=== PATIENT | male | born 1940 | race Caucasian/White ===

== ENCOUNTER → 2016-06-14 | Outpatient (CLI) | payer OTHER, MEDICARE ==
[~2016-06-14] MED LIST: ALL100 PO; ASPEC81 PO; CALCTAB7 PO; CHOL100010 PO; CRG25 PO; CYAN10005 PO; DIGO0.1219 PO; ENAL10TA88 PO; EPGI40M SC; FERR1TAB13 PO; FRS/40 PO; INSDGI SC; LCTX PO; NVLGI SQ; SIMV20TA2 PO
--- NOTE | 2016-06-14 13:17 | DIAGNOSTIC IMAGING REPORT ---
CHEST 2 VIEWS ROUTINE CLINICAL HISTORY: Shortness of breath COMPARISON STUDY: 02/08/2016 FINDINGS: The cardiac silhouette remains enlarged with a globular configuration. There is a left subclavian dual-chamber central venous pacemaker/defibrillator. There is mild pulmonary vascular congestion. There are small bilateral pleural effusions. There is no lobar consolidation.[ IMPRESSION: Cardiomegaly, mild pulmonary vascular congestion, and small bilateral pleural effusions. Electronically signed by: Umair Daly M.D. 06/14/2016 1:15 PM Dictated Date/Time: 06/14/2016 1:15 PM
== END | disposition home or self-care (01) ==
LOC: C.RADPV 12:48
PROVIDERS: ATTEND Family Medicine
DX: R06.02 Shortness of breath (principal); I51.7 Cardiomegaly; R09.89 Other specified symptoms and signs involving the circulatory and respiratory systems; J90 Pleural effusion, not elsewhere classified

== ENCOUNTER → 2016-06-28 | Outpatient (CLI) | payer OTHER ==
[2016-06-28 17:47] LABS: URINE APPEARANCE CLEAR (CLEAR); URINE BILIRUBIN NEG (NEG); URINE COLOR YELLOW; URINE EPITHELIAL CELL AUTO 0-5 /lpf (0-5); URINE NITRITE NEG (NEG); URINE PH 7.5 (4.5-7.5); URINE SPECIFIC GRAVITY 1.003 (1.000-1.030); UROBILINOGEN NEG (NEG)
[2016-06-28 17:54] LABS: MANUAL MICROSCOPIC REQUIRED? NO; REVIEW REQ? NO
[2016-06-28 17:56] LABS: CHOLESTEROL/HDL RATIO 2.2
[2016-06-28 18:00] LABS: CREATININE, URINE < 13.0 mg/dl; URINE TOTAL PROTEIN 7.6 mg/dl (0-11.9)
[2016-06-28 18:09] LABS: BASO % 0.6 %; BASO ABS # 0.03 K/uL (0-0.2); COMPLETE YES; EOS % 10.2 %; IG% 0.2 %; LYMPH % 8.1 %; LYMPH ABS # 0.41 K/uL (1.2-3.4); MEAN CELL VOLUME 88.9 fL (80-100); MEAN CORPUSCULAR HEMOGLOBIN 27.2 pg (25-34); MEAN CORPUSCULAR HGB CONC 30.6 g/dl (32-36); MEAN PLATELET VOLUME 10.2 fL (7.4-10.4); MONO % 7.5 %; NEUT % 73.4 %; PLATELET COUNT 183 K/uL (130-400); RED BLOOD COUNT 4.05 M/uL (4.7-6.1); WHITE BLOOD COUNT 5.09 K/uL (4.8-10.8)
[2016-06-28 18:28] LABS: BLOOD UREA NITROGEN 36 mg/dl (7-18); BUN/CREATININE RATIO 27.9 (10-20); CALCIUM 9.5 mg/dl (8.5-10.1); CARBON DIOXIDE 31 mmol/L (21-32); CHLORIDE 105 mmol/L (98-107); GLUCOSE 82 mg/dl (70-99); PHOSPHORUS 3.1 mg/dl (2.5-4.9); POTASSIUM 4.4 mmol/L (3.5-5.1); SODIUM 143 mmol/L (136-145)
[2016-06-29 05:41] LABS: ESTIMATED AVERAGE GLUCOSE 166 mg/dl; HA1C FLAG Normal (Normal)
== END | disposition home or self-care (01) ==
LOC: C.LABPVFM 11:53
PROVIDERS: ATTEND Nurse Practitioner Adult Health
DX: I12.9 Hypertensive chronic kidney disease with stage 1 through stage 4 chronic kidney disease, or unspecified chronic kidney disease (principal); E55.9 Vitamin D deficiency, unspecified; N25.81 Secondary hyperparathyroidism of renal origin; N18.3 Chronic kidney disease, stage 3 (moderate); R60.9 Edema, unspecified; D64.9 Anemia, unspecified; Z51.81 Encounter for therapeutic drug level monitoring; Z79.899 Other long term (current) drug therapy; E11.65 Type 2 diabetes mellitus with hyperglycemia; E11.22 Type 2 diabetes mellitus with diabetic chronic kidney disease; E78.5 Hyperlipidemia, unspecified

== ENCOUNTER 2016-09-25 06:32 | Day surgery (SDC) | payer OTHER ==
[~2016-09-25] VITALS: Ht 182.9 cm; Wt 100.0 kg
[2016-09-25 07:11] VITALS: BP 111/59; PULSE 73; TEMP 36.6; O2SAT 97; Ht 182.9 cm; Wt 100.0 kg
--- NOTE | 2016-09-25 07:25 | Procedure Note ---
Pre-Mod Sedation Assessment General Date of Moderate Sedation: Sep 25, 2016. Review Cardiovascular: regular rate, rhythm, no edema Abdomen: normal bowel sounds, non tender Lungs: chest non-tender, lungs clear Airway Class: II Pre-Sedation Airway Assessment Oral Cavity: Dental Abnormalities Able to Visualize Vocal Cords: No Short Thick Neck: No Hx of Sleep Apnea: No Smoking Status: Never Smoker Mallampati Classification: Class II ASA Classification: Class III Procedure Planning Contraindications-for Mod Sed: None Yes Notes The planned sedation has been discussed with the patient and consent obtained. I have identified the patient, determined the appropriateness of sedation and have assessed the patient immediately prior to the procedure. All medicine(s) and interventions are by my order.
[2016-09-25] MEDS ORDERED: LIDOCAINE/EPINEPHRINE 1% INJ 50 ML VIAL ONE (07:29)
[2016-09-25] MEDS ORDERED: LIDOCAINE HCL 1% 20 ML VIAL ONE (07:29)
[2016-09-25] MEDS ORDERED: MIDAZOLAM HCL 1 MG/ML 2ML VIAL ONE (07:30)
[2016-09-25] MEDS ORDERED: SODIUM BICARB 8.4% INJ 50 MEQ/50 ML SYR IV ONE (07:30)
[2016-09-25] MEDS ORDERED: FENTANYL CITRATE INJ 50 MCG/1 ML 2 ML VIAL ONE (07:30)
[2016-09-25 07:50] VITALS: BP 111/59; PULSE 73; TEMP 36.6; O2SAT 97
--- NOTE | 2016-09-25 07:56 | History and Physical ---
History & Physical Date Sep 25, 2016. Chief Complaint Venous Ulceration History of Present Illness Mr. Rico is a 75-year-old man with a complex medical history including coronary artery disease, congestive heart failure/ischemic cardiomyopathy status post biventricular ICD, colon cancer, status post hemicolectomy and chronic venous insufficiency, and peripheral arterial disease with chronic slow healing left richard venous ulceration. Venous ulceration has been present for last 1-2 months and states that more recently has progressed despite wound care at the wound center. The patient reports one episode of prior ulceration in the past, maybe about 2 years ago. He endorses longstanding lower extremity edema, right usually greater than left. Denies any history of prior blood clots. No family history of DVTs. He is a nonsmoker. Venous reflux study showed bilateral GSV dilation with reflux. Past Medical/Surgical History Medical Problems: Idiopathic cardiomyopathy, EF 20%, two-vessel coronary artery disease, insulin-dependent diabetes, history of [place] cell carcinoma, stage III chronic kidney disease, anemia secondary to kidney disease, polymyalgia rheumatica. Additional History Hepatic Disease: No Endocrine Disorder: Yes Kidney Disease: Yes Hypertension: Yes Heart Disease: Yes Bleeding Tendencies: No Infectious Diseases: No Allergies Coded Allergies: No Known Allergies (Verified , 09/25/16) Home Medications Scheduled Allopurinol (Zyloprim *), 100 MG PO QAM Aspirin Enteric Coated (Ecotrin Or Generic *), 81 MG PO DAILY Calcium Carbonate-Vitamin D W/ (Caltrate 600 Plus), 1 TAB PO DAILY Carvedilol (Coreg *), 37.5 MG PO BID Cholecalciferol (Vitamin D), 2,000 INTER.UNIT PO DAILY Cyanocobalamin (Vitamin B-12), 1,000 MCG PO DAILY Digoxin (Digox), Unknown Dose PO DAILY Enalapril (Vasotec), 20 MG PO BID Epoetin Erick (Procrit), 40,000 UNIT SC BLANK Ferrous Sulfate (Kp Ferrous Sulfate), 1 TAB PO DAILY Furosemide (Lasix), 80 MG PO DAILY Insulin Aspart (Novolog), UNITS SQ DIRECTED Insulin Glargine (Lantus), 14 UNITS SC QPM Lactobacillus Acidophilus (Lactinex), 1 TAB PO DAILY Simvastatin (Zocor), 20 MG PO HS Physical Examination Skin: warm/dry Eyes: normal inspection Head: normocephalic Neck: supple Respiratory/Chest: lungs clear Cardiovascular: regular rate, rhythm Abdomen / GI: normal bowel sounds Extremities: + pertinent finding (left lower extremity ulceration. Diminished bilateal pulses) Neurologic/Psych: alert, oriented x 3 Diagnosis Chronic venous insufficiency Venous ulceration. ASA Classification: ASA Class III Plan of Treatment Proceed with left GSV ablation.
[2016-09-25] MEDS ORDERED: LIDOCAINE HCL 1% 20 ML VIAL SQ ONE (09:29)
[2016-09-25] MEDS ORDERED: ORM MISCELLANEOUS MED XX ONE (09:29)
--- NOTE | 2016-09-25 09:39 | [facility] Operative Report ---
Operative Report Operative Date Sep 25, 2016. Pre-Operative Diagnosis Peripheral Vascular Disease Post-Operative Diagnosis Chronic venous insufficiency Procedure(s) Performed Left GSV ablation Surgeon Dr. Conti Renewable [employer] Broker Surgeon(s) None Estimated Blood Loss <10 Findings Left GSV dilated. No superficial or deep vein thrombus. Specimens None Drains none Anesthesia Local Complication(s) None Disposition Recovery Room / PACU Indications CVI Venous Ulceration Description of Procedure US guided access Left GSV below the knee attempted but unsuccessful. Access later obtained above the knee. Catheter inserted, 2.5 cm from SFJ. Tumescent injected. US confirmed not in deep system. 3:00, 9 cycles of RFA in left GSV. No complications. Patient tolerated well. US confirmed no DVT post procedure. I attest to the content of the Intraoperative Record and any orders documented therein. Any exceptions are noted below.
--- NOTE | 2016-09-25 09:40 | Discharge Instructions ---
Discharge Instructions Date of Service Sep 25, 2016. Visit Reason for Visit: Venous Insufficiency Discharge Discharge Diagnosis / Problem: Chronic venous insufficiency Discharge Goals Goal(s): Decrease discomfort, Improve function Activity Recommendations Activity Limitations: resume your previous activity Exercise/Sports Limitations: rest today (Continue walking today. Can resume more strenous activities in 3 days.) Driving or Machine Use: resume 1 day after discharge Anesthesia . Post Anesthesia Instructions: If you have had General Anesthesia or IV Sedation: * Do not drive today. * Resume driving when surgeon permits. * Do not make important decisions or sign legal documents today. * Call surgeon for: 1. Temperature elevations greater than 101 degrees F. 2. Uncontrollable pain. 3. Excessive bleeding. 4. Persistent nausea and vomiting. 5. Medication intolerance (nausea, vomiting or rash). * For nausea and vomiting use only clear liquids such as: tea, soda, bouillon until nausea subsides, then gradually increase diet as tolerated. * If you have any concerns or questions, call your surgeon's office. If physician is unavailable and it is an emergency, call 911 or go to the nearest emergency room. . Instructions / Follow-Up Instructions / Follow-Up RIVAS wrap until night before bed, Friday morning, wear your compression stockings and continue to wear indefinitely. Follow up Ultrasound as scheduled. Any severe pain, present to the emergency room concerned about DVT. Diet Recommendations Recommended Home Diet: low sodium, low cholesterol Procedures Procedures Performed: Left Greater Saphenous Vein Radiofrequency Ablation Pending Studies Studies pending at discharge: yes List of pending studies: Follow-up ultrasound Medical Emergencies . Who to Call and When: Medical Emergencies: If at any time you feel your situation is an emergency, please call 911 immediately. . Non-Emergent Contact Non-Emergency issues call your: Primary Care Provider, Laundry Marker Supervisor . . "Provider Documentation" section prepared by Lisandro Conti. .
[2016-09-25 09:45] VITALS: BP 132/63; PULSE 64; TEMP 36.6; O2SAT 96
[2016-09-25 10:15] VITALS: BP 126/53; PULSE 64; O2SAT 96
[2016-09-25 10:45] VITALS: BP 118/56; PULSE 72; TEMP 36.5; O2SAT 96
[2017-02-17] MEDS ORDERED: ALLO100T PO (12:56)
[2017-02-20] MEDS ORDERED: SPR25 PO (11:52)
== END 2016-09-25 11:20 | disposition home or self-care (01) ==
LOC: C.ACU 06:32
PROVIDERS: ATTEND Internal Medicine Interventional Cardiology
DX: I73.9 Peripheral vascular disease, unspecified (principal); I87.2 Venous insufficiency (chronic) (peripheral); L97.829 Non-pressure chronic ulcer of other part of left lower leg with unspecified severity; I25.10 Atherosclerotic heart disease of native coronary artery without angina pectoris; I25.5 Ischemic cardiomyopathy; M35.3 Polymyalgia rheumatica; I50.9 Heart failure, unspecified; N18.3 Chronic kidney disease, stage 3 (moderate); I12.9 Hypertensive chronic kidney disease with stage 1 through stage 4 chronic kidney disease, or unspecified chronic kidney disease; E11.9 Type 2 diabetes mellitus without complications; Z79.82 Long term (current) use of aspirin; Z85.038 Personal history of other malignant neoplasm of large intestine; Z86.718 Personal history of other venous thrombosis and embolism; Z85.821 Personal history of Merkel cell carcinoma

== ENCOUNTER → 2016-10-09 | Outpatient (CLI) | payer OTHER, MEDICARE ==
[2015-10-10 13:32] VITALS: BP 119/79; PULSE 69
[2016-10-09 13:00] VITALS: BP 129/68; PULSE 90; TEMP 36.8; O2SAT 97
--- NOTE | 2016-10-09 13:58 | Radiation Oncology Follow-Up ---
Radiation Oncology Follow-Up Date of Visit Oct 09, 2016. Reason For Visit Annual follow-up Radiation Completion Date 11/05/11 Diagnosis (1) Prostate cancer Status: Resolved Onset Date: 01/15/2011 Location: left lobe of the prostate Histology Subtype: adenocarcinoma Stage: ll Permanent Comment: 1. 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 2. Status post completion of radiation therapy and chemotherapy, radiation completed 08/05/06, received 5040 cGy. 3. Etoposide and Carboplatin chemotherapy completed August 2006. 4. Malignant melanoma of the right anterior chest excised and reexcised with wide margins 2008. 5. Multiple basal cells removed one from the left arm excised January 2009. 6. Finding of adenocarcinoma of the prostate, presenting PSA 5.81, prostate volume 95.5. 7. Status post sextant biopsies, biopsy Stage [id number] [place] Grade 3 + 4. 8. Hormone suppression for 5 months 9. Prostate seed implant as a boost 08/16/2011 10 status post completion of IMRT/IGRT 11/05/2011 received 4500 cGy Last Edited By: Lisa Betancourt on Oct 05, 2014 16:06 Interim History He is doing well from urinary standpoint. His AUA score was 0. Completed and expanded prostate cancer index composite for clinical practice and gave a score of 0 of 12 in urinary incontinence symptoms. He gave a score 0 12 in urinary irritation symptoms. He gave a score of 0 12 bowel symptoms. He did not complete questions on sexual function he gave a score of 4 of 12 in hormonal vitality symptoms. His total was 4 of 48. In general he feels he is doing well although he continues to have problems with fatigue. He has had this since the completion of radiation. He has been diagnosed with anemia. He is followed by medical oncology. He is having further testing to help determine the cause of fatigue. He is also followed by his groundhand. It is felt that some of the fatigue could be related to his cardiomyopathy. He continues to see Dr. Maloney once a year. His last PSA was 07/10/2015. This was 0.028. 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 He does have lymphedema of his arm. He wears a sleeve and gauntlet. He feels that the lymphedema is stable. It had been increased earlier in the summer. He started using his sleeve at a more regular interval. He currently is under treatment for venous stasis and has wraps in place on both legs. He feels these are helping to decrease leg edema. Allergies Coded Allergies: No Known Allergies (Verified , 09/25/16) Home Medications Scheduled Allopurinol (Zyloprim *), 100 MG PO QAM Aspirin Enteric Coated (Ecotrin Or Generic *), 81 MG PO DAILY Calcium Carbonate-Vitamin D W/ (Caltrate 600 Plus), 1 TAB PO DAILY Carvedilol (Coreg *), 37.5 MG PO BID Cholecalciferol (Vitamin D), 2,000 INTER.UNIT PO DAILY Cyanocobalamin (Vitamin B-12), 1,000 MCG PO DAILY Digoxin (Digox), Unknown Dose PO DAILY Enalapril (Vasotec), 20 MG PO BID Epoetin Erick (Procrit), 40,000 UNIT SC BLANK Ferrous Sulfate (Kp Ferrous Sulfate), 1 TAB PO DAILY Furosemide (Lasix), 80 MG PO DAILY Insulin Aspart (Novolog), UNITS SQ DIRECTED Insulin Glargine (Lantus), 14 UNITS SC QPM Lactobacillus Acidophilus (Lactinex), 1 TAB PO DAILY Simvastatin (Zocor), 20 MG PO HS Review of Systems Gastrointestinal: Symptoms: WNL GI Comments: " stools are harder at times " Oral: Symptoms: No Problems Respiratory: Symptoms: WNL, SOB With Exertion Other Respiratory: GUALLPA Urinary: Symptoms: WNL Comments: See AUA & EPIC Skin: Symptoms: No Problems Other Skin Symptoms: some redness on knees and legs Physical Exam Vital Signs Date Time Temp Pulse Resp B/P (MAP) Pulse Ox O2 Delivery O2 Flow Rate FiO2 10/09/16 13:00 36.8 90 16 129/68 97 Pain: Side: Bilateral Patient Pain Scale: 0 - 10 Initial Pain Intensity: 0.0 Fatigue: None General Appearance: no apparent distress Eyes: normal inspection, EOMI ENT: normal ENT inspection, hearing grossly normal Neck: no adenopathy, thyroid normal Respiratory/Chest: lungs clear, no respiratory distress, no accessory muscle use Cardiovascular: regular rate, rhythm, no gallop, no murmur Abdomen: non tender, soft, no organomegaly Anal / Rectum: Declined examination. Extremities: + pertinent finding (lymphedema of the right upper extremity. Edema of both lower extremities. Wraps in place as well as sleeve and gauntlet on the right upper extremity.) Neurologic/Psychiatric: no motor/sensory deficits, alert, normal mood/affect Skin: warm/dry Laboratory Studies Test 07/31/16 13:54 08/28/16 13:39 09/24/16 13:53 09/25/16 07:04 Iron Level 38 mcg/dl (35-175) Total Iron Binding Capacity 231 mcg/dl (250-450) Transferrin 177 mg/dl (200-360) Transferrin % Saturation 15 % (20-50) Ferritin 60.5 ng/ml (8.0-388.0) White Blood Count 4.58 K/uL (4.8-10.8) 3.95 K/uL (4.8-10.8) Red Blood Count 3.52 M/uL (4.7-6.1) 3.46 M/uL (4.7-6.1) Hemoglobin 9.9 g/dL (14.0-18.0) 9.8 g/dL (14.0-18.0) Hematocrit 31.8 % (42-52) 31.5 % (42-52) Mean Corpuscular Volume 90.3 fL (80-100) 91.0 fL (80-100) Mean Corpuscular Hemoglobin 28.1 pg (25-34) 28.3 pg (25-34) Mean Corpuscular Hemoglobin Concent 31.1 g/dl (32-36) 31.1 g/dl (32-36) Platelet Count 134 K/uL (130-400) 119 K/uL (130-400) Mean Platelet Volume 9.7 fL (7.4-10.4) 10.1 fL (7.4-10.4) Neutrophils (%) (Auto) 76.5 % 78.4 % Lymphocytes (%) (Auto) 9.8 % 8.1 % Monocytes (%) (Auto) 8.5 % 6.6 % Eosinophils (%) (Auto) 4.8 % 6.3 % Basophils (%) (Auto) 0.2 % 0.3 % Neutrophils # (Auto) 3.50 K/uL (1.4-6.5) 3.10 K/uL (1.4-6.5) Lymphocytes # (Auto) 0.45 K/uL (1.2-3.4) 0.32 K/uL (1.2-3.4) Monocytes # (Auto) 0.39 K/uL (0.11-0.59) 0.26 K/uL (0.11-0.59) Eosinophils # (Auto) 0.22 K/uL (0-0.5) 0.25 K/uL (0-0.5) Basophils # (Auto) 0.01 K/uL (0-0.2) 0.01 K/uL (0-0.2) RDW Standard Deviation 62.3 fL (36.4-46.3) 62.1 fL (36.4-46.3) RDW Coefficient of Variation 18.8 % (11.5-14.5) 18.5 % (11.5-14.5) Immature Granulocyte % (Auto) 0.2 % 0.3 % Immature Granulocyte # (Auto) 0.01 K/uL (0.00-0.02) 0.01 K/uL (0.00-0.02) Sodium Level 144 mmol/L (136-145) Potassium Level 4.6 mmol/L (3.5-5.1) Chloride Level 107 mmol/L (98-107) Carbon Dioxide Level 32 mmol/L (21-32) Anion Gap 5.0 mmol/L (3-11) Blood Urea Nitrogen 46 mg/dl (7-18) Creatinine 2.00 mg/dl (0.60-1.40) Est Creatinine Clear Calc Drug Dose 39.2 ml/min Estimated GFR () 37.3 Estimated GFR (Non- 32.2 BUN/Creatinine Ratio 22.9 (10-20) Random Glucose 151 mg/dl (70-99) Calcium Level 8.9 mg/dl (8.5-10.1) Total Bilirubin 0.6 mg/dl (0.2-1) Aspartate Amino Transferase (AST) 9 U/L (15-37) Alanine Aminotransferase (ALT) 18 U/L (12-78) Alkaline Phosphatase 98 U/L (45-117) Lactate Dehydrogenase 145 U/L (87-241) Total Protein 6.5 gm/dl (6.4-8.2) Albumin 2.9 gm/dl (3.4-5.0) Globulin 3.6 gm/dl (2.5-4.0) Albumin/Globulin Ratio 0.8 (0.9-2) POC Glucose 84 mg/dl (70-99) Test Additional Studies PSA will be drawn at the time of his next laboratory blood draw for medical oncology. An order was given. Assessment & Plan Plan: He will have a PSA drawn within the next 2 weeks. This will be done at the time of his laboratory studies that are ordered by Dr. Vargas. He did not want to have a needle sticks twice. He'll be notified as to results. Continue follow-up with Dr. Luis Felipe Maloney. He'll be seeing him in 6 months. A follow-up appointment with our office was not given. He'll continue follow-up now with urology and medical oncology. He may call if he has any questions or concerns we'll be happy to see him. Total Time In Follow-Up I spent 20 minutes speaking to the patient performing examination. As 15 minutes reviewing information in completing this note. Copy To Elba Johns M.D.; Luis Felipe Maloney MD, Urology; Ben Vargas MD
== END | disposition home or self-care (01) ==
LOC: C.ONC 12:27
PROVIDERS: ATTEND Physician Assistant Medical
DX: Z08 Encounter for follow-up examination after completed treatment for malignant neoplasm (principal); Z92.3 Personal history of irradiation; Z85.46 Personal history of malignant neoplasm of prostate

== ENCOUNTER → 2016-10-23 | Outpatient (CLI) | payer OTHER | END | disposition home or self-care (01) | LOC: C.LAB 12:44 | PROVIDERS: ATTEND Physician Assistant Medical | DX: C61 Malignant neoplasm of prostate (principal); D64.9 Anemia, unspecified; E11.9 Type 2 diabetes mellitus without complications; M35.3 Polymyalgia rheumatica; Z85.46 Personal history of malignant neoplasm of prostate; Z79.899 Other long term (current) drug therapy ==

== ENCOUNTER → 2016-11-04 | Outpatient (CLI) | payer OTHER ==
[2016-11-04 17:34] LABS: HEMATOCRIT 32.7 % (42-52); MEAN CELL VOLUME 91.6 fL (80-100); MEAN CORPUSCULAR HEMOGLOBIN 28.3 pg (25-34); MEAN CORPUSCULAR HGB CONC 30.9 g/dl (32-36); MEAN PLATELET VOLUME 9.7 fL (7.4-10.4); PLATELET COUNT 155 K/uL (130-400); RED BLOOD COUNT 3.57 M/uL (4.7-6.1); WHITE BLOOD COUNT 4.48 K/uL (4.8-10.8)
[2016-11-04 17:54] LABS: INR 1.1 (0.9-1.1); PARTIAL THROMBOPLASTIN RATIO 1.1; PROTHROMBIN TIME (PATIENT) 12.3 SECONDS (9.0-12.0)
[2016-11-04 17:58] LABS: BLOOD UREA NITROGEN 41 mg/dl (7-18); BUN/CREATININE RATIO 27.6 (10-20); CALCIUM 8.9 mg/dl (8.5-10.1); CARBON DIOXIDE 33 mmol/L (21-32); CHLORIDE 108 mmol/L (98-107); GLUCOSE 91 mg/dl (70-99); POTASSIUM 4.4 mmol/L (3.5-5.1); SODIUM 142 mmol/L (136-145)
== END | disposition home or self-care (01) ==
LOC: C.LABPVFM 14:15
PROVIDERS: ATTEND Internal Medicine Interventional Cardiology
DX: Z01.818 Encounter for other preprocedural examination (principal); I87.2 Venous insufficiency (chronic) (peripheral); L97.929 Non-pressure chronic ulcer of unspecified part of left lower leg with unspecified severity; E11.40 Type 2 diabetes mellitus with diabetic neuropathy, unspecified; I11.9 Hypertensive heart disease without heart failure; I50.9 Heart failure, unspecified; Z85.46 Personal history of malignant neoplasm of prostate; Z95.0 Presence of cardiac pacemaker; Z95.5 Presence of coronary angioplasty implant and graft; Z85.828 Personal history of other malignant neoplasm of skin; Z79.899 Other long term (current) drug therapy; Z79.4 Long term (current) use of insulin; M35.3 Polymyalgia rheumatica

== ENCOUNTER 2016-11-13 08:52 | Day surgery (SDC) | payer OTHER, MEDICARE ==
[~2016-11-13] VITALS: Ht 182.9 cm; Wt 106.4 kg
[~2016-11-13 08:52] MED LIST changes: +SODIUM CHLORIDE 0.9% 1000ML IV SCH
[2016-11-13 09:26] VITALS: BP 139/66; PULSE 72; TEMP 36.4; O2SAT 95; Ht 182.9 cm; Wt 106.4 kg
[2016-11-13] MEDS ORDERED: FENTANYL CITRATE INJ 50 MCG/1 ML 2 ML VIAL ONE (11:21)
[2016-11-13] MEDS ORDERED: LIDOCAINE/EPINEPHRINE 1% INJ 50 ML VIAL ONE (11:21)
[2016-11-13] MEDS ORDERED: MIDAZOLAM HCL 1 MG/ML 2ML VIAL ONE (11:21)
[2016-11-13] MEDS ORDERED: LIDOCAINE HCL 1% 20 ML VIAL ONE (11:21)
--- NOTE | 2016-11-13 11:31 | Procedure Note ---
Pre-Mod Sedation Assessment General Date of Moderate Sedation: Nov 13, 2016. Vital Signs: Vital Signs Past 12 Hours Date Time Temp Pulse Resp B/P (MAP) Pulse Ox O2 Delivery O2 Flow Rate FiO2 11/13/16 09:26 36.4 72 22 139/66 (90) 95 Room Air Review Cardiovascular: regular rate, rhythm, no edema Abdomen: normal bowel sounds, non tender Lungs: chest non-tender, lungs clear Pre-Sedation Airway Assessment Oral Cavity: Dentures, WNL Able to Visualize Vocal Cords: No Short Thick Neck: No Hx of Sleep Apnea: No Smoking Status: Former Smoker Mallampati Classification: Class III ASA Classification: Class III Procedure Planning Contraindications-for Mod Sed: None Yes Notes The planned sedation has been discussed with the patient and consent obtained. I have identified the patient, determined the appropriateness of sedation and have assessed the patient immediately prior to the procedure. All medicine(s) and interventions are by my order.
[2016-11-13 11:35] VITALS: BP 139/66; PULSE 72; TEMP 36.4; O2SAT 95
[2016-11-13] MEDS ORDERED: SODIUM BICARB 8.4% INJ 50 MEQ/50 ML SYR IV ONE (11:35)
--- NOTE | 2016-11-13 11:35 | History and Physical ---
History & Physical Date Nov 13, 2016. History of Present Illness Mr. Rico is a 75-year-old man with a complex medical history including coronary artery disease, congestive heart failure/ischemic cardiomyopathy status post biventricular ICD, colon cancer, status post hemicolectomy here today for right GSV RF ablation. Patient was initially seen in [facility] in August of 2016 in the setting of a slow healing venous ulceration on his left anterior richard for the preceding 3 weeks. Wound was progressing despite appropriate wound care. Prior to that he had one episode of prior ulceration in the past, maybe about 2 years ago along with longstanding lower extremity edema, right usually greater than left. Denied any history of prior blood clots. No family history of DVTs. He is a nonsmoker. He underwent uncomplicated left GSV RF ablation on 09/25/2016. Post-operative ultrasound showed appropriate closure of GSV with no evidence of DVT. Continues to endorse RLE discomfort, swelling and has history of prior RLE ulcerations. Past Medical/Surgical History Medical Problems: (1) Diabetic peripheral neuropathy associated with type 2 diabetes mellitus (2) Ischemic cardiomyopathy (3) Loss of sensation (4) Peripheral vascular disease (5) Prostate cancer Additional History Hepatic Disease: No Endocrine Disorder: Yes Kidney Disease: No Hypertension: Yes Heart Disease: Yes Bleeding Tendencies: No Infectious Diseases: No Allergies Coded Allergies: No Known Allergies (Verified , 09/25/16) Home Medications Scheduled Allopurinol (Zyloprim *), 100 MG PO QAM Aspirin Enteric Coated (Ecotrin Or Generic *), 81 MG PO DAILY Calcium Carbonate-Vitamin D W/ (Caltrate 600 Plus), 1 TAB PO DAILY Carvedilol (Coreg *), 37.5 MG PO BID Cholecalciferol (Vitamin D), 2,000 INTER.UNIT PO DAILY Cyanocobalamin (Vitamin B-12), 1,000 MCG PO DAILY Digoxin (Digox), Unknown Dose PO DAILY Enalapril (Vasotec), 20 MG PO BID Epoetin Erick (Procrit), 40,000 UNIT SC BLANK Ferrous Sulfate (Kp Ferrous Sulfate), 1 TAB PO DAILY Furosemide (Lasix), 80 MG PO DAILY Insulin Aspart (Novolog), UNITS SQ DIRECTED Insulin Glargine (Lantus), 14 UNITS SC QPM Lactobacillus Acidophilus (Lactinex), 1 TAB PO DAILY Simvastatin (Zocor), 20 MG PO HS Physical Examination Skin: warm/dry Eyes: normal inspection Head: normocephalic Neck: supple Respiratory/Chest: lungs clear, normal breath sounds Cardiovascular: regular rate, rhythm Abdomen / GI: normal bowel sounds Extremities: + pertinent finding (LE edema, dressings in place bilaterally) Neurologic/Psych: no motor/sensory deficits, alert Diagnosis Chronic venous insufficiency ASA Classification: ASA Class III Plan of Treatment Right GSV RF Ablation
[2016-11-13] MEDS ORDERED: LIDOCAINE HCL 1% 20 ML VIAL INJ ONE (12:18)
[2016-11-13] MEDS ORDERED: ORM MISCELLANEOUS MED XX ONE (12:39)
--- NOTE | 2016-11-13 12:43 | Procedure Note ---
Post-Mod Sedation Assessment General Date of Moderate Sedation Nov 13, 2016. Vital Signs: Vital Signs Past 12 Hours Date Time Temp Pulse Resp B/P (MAP) Pulse Ox O2 Delivery O2 Flow Rate FiO2 11/13/16 09:26 36.4 72 22 139/66 (90) 95 Room Air Review - Discharge Criteria Vital Signs Stable: Yes Alert/Oriented/Conversant: Yes Returned to Baseline Mental St: Yes Nausea Absent/Minimal: Yes Pain/Discomfort/Absent/Minimal: Yes Normal/Baseline Respirations: Yes Active Bleeding?: N/A Pt Received D/C Instructions: N/A Prescriptions Given: Transmitted Specific Proced. D/C Criteria Distal Pulses Present (Cardiac: N/A Groin site assessed-Card Cath: N/A Voided Prior To Discharge: N/A Discharged Patients Adult Escort/Transportation: Yes
--- NOTE | 2016-11-13 12:47 | [facility] Operative Report ---
Operative Report Operative Date Nov 13, 2016. Pre-Operative Diagnosis Chronic venous insufficiency Post-Operative Diagnosis same Procedure(s) Performed Right GSV RF ablation Surgeon Gallito Scissors Grinder Surgeon(s) Cece Estimated Blood Loss 5 Findings Dilated Right GSV Fluids 650 Tumescent Specimens None Drains None Anesthesia Moderte Complication(s) None Disposition Recovery Room / PACU Indications CVI, Venous ulcerations Description of Procedure US guided access Right GSV below the knee. Catheter inserted, 2.5 cm from SFJ. Tumescent injected. US confirmed not in deep system. 4:00, 12 cycles of RFA right GSV. No complications. Patient tolerated well. US confirmed no DVT post procedure. I attest to the content of the Intraoperative Record and any orders documented therein. Any exceptions are noted below.
--- NOTE | 2016-11-13 12:49 | Discharge Instructions ---
Discharge Instructions Procedure Procedure Date: Nov 13, 2016. Reason for Visit: Chronic Venous Insufficiency. Discharge Discharge Date: Nov 13, 2016. Discharge Diagnosis: Chronic venous insufficiency Last Recorded Wt (Kilograms): 106.4 Anesthesia Post Anesthesia Instructions: If you have had General Anesthesia or IV Sedation: * Do not drive today. * Resume driving when surgeon permits. * Do not make important decisions or sign legal documents today. * Call surgeon for: 1. Temperature elevations greater than 101 degrees F. 2. Uncontrollable pain. 3. Excessive bleeding. 4. Persistent nausea and vomiting. 5. Medication intolerance (nausea, vomiting or rash). * For nausea and vomiting use only clear liquids such as: tea, soda, bouillon until nausea subsides, then gradually increase diet as tolerated. * If you have any concerns or questions, call your surgeon's office. If physician is unavailable and it is an emergency, call 911 or go to the nearest emergency room. Instructions Activity Recommendations: resume regular activity (Activity as outlined on paper instructions from Dr. Conti' office) Recommended Home Diet: resume previous diet Allergies: Coded Allergies: No Known Allergies (Verified , 09/25/16) Follow Up Follow-up with: As scheduled Misty Donis Recommendations: Call your doctor if: * Temperature above 101 degrees * Pain not relieved by pain medicine ordered * There is increased drainage or redness from any incision * You have any unanswered questions or concerns. Your Doctors Instructions noted above were prepared by provider Lisandro Conti. Patient Signature Section: Patient Instructions Signature Page Mitch Rico Patient (or Guardian) Signature/Date: I have read and understand the instructions given to me by my caregivers. Caregiver/RN/Doctor Signature/Date: The above-named patient and/or guardian has received patient instructions on this date. + Original Patient Signature Page (only) stays with chart. Please make copy for patient.
[2016-11-13 12:50] VITALS: BP 131/80; PULSE 62; O2SAT 100
[2016-11-13 13:20] VITALS: BP 130/95; PULSE 70; O2SAT 94
== END 2016-11-13 13:26 | disposition home or self-care (01) ==
LOC: C.ACU 08:52
PROVIDERS: ATTEND Internal Medicine Interventional Cardiology
DX: I87.2 Venous insufficiency (chronic) (peripheral) (principal); L97.819 Non-pressure chronic ulcer of other part of right lower leg with unspecified severity; L97.829 Non-pressure chronic ulcer of other part of left lower leg with unspecified severity; I73.9 Peripheral vascular disease, unspecified; E11.9 Type 2 diabetes mellitus without complications; I51.9 Heart disease, unspecified; N18.3 Chronic kidney disease, stage 3 (moderate); E11.21 Type 2 diabetes mellitus with diabetic nephropathy; I25.5 Ischemic cardiomyopathy; M35.3 Polymyalgia rheumatica; N25.81 Secondary hyperparathyroidism of renal origin; E78.5 Hyperlipidemia, unspecified; E55.9 Vitamin D deficiency, unspecified; E11.40 Type 2 diabetes mellitus with diabetic neuropathy, unspecified; I25.10 Atherosclerotic heart disease of native coronary artery without angina pectoris; Z90.49 Acquired absence of other specified parts of digestive tract; Z95.810 Presence of automatic (implantable) cardiac defibrillator; Z85.038 Personal history of other malignant neoplasm of large intestine; Z87.891 Personal history of nicotine dependence; Z85.46 Personal history of malignant neoplasm of prostate; Z92.21 Personal history of antineoplastic chemotherapy; Z79.4 Long term (current) use of insulin; Z83.3 Family history of diabetes mellitus

== ENCOUNTER → 2016-11-18 | Outpatient (CLI) | payer OTHER, MEDICARE ==
[~2016-11-18] MED LIST changes: -SODIUM CHLORIDE 0.9% 1000ML IV SCH
[2016-11-18 12:35] LABS: URINE APPEARANCE CLEAR (CLEAR); URINE BILIRUBIN NEG (NEG); URINE COLOR YELLOW; URINE EPITHELIAL CELL AUTO 0-5 /lpf (0-5); URINE NITRITE NEG (NEG); URINE SPECIFIC GRAVITY 1.013 (1.000-1.030); UROBILINOGEN NEG (NEG)
[2016-11-18 12:36] LABS: MANUAL MICROSCOPIC REQUIRED? NO; REVIEW REQ? NO
[2016-11-18 12:40] LABS: ALT/SGPT 16 U/L (12-78); AST/SGOT 10 U/L (15-37); BLOOD UREA NITROGEN 35 mg/dl (7-18); BUN/CREATININE RATIO 23.3 (10-20); CALCIUM 9.1 mg/dl (8.5-10.1); CARBON DIOXIDE 32 mmol/L (21-32); CHLORIDE 109 mmol/L (98-107); GLUCOSE 66 mg/dl (70-99); POTASSIUM 4.3 mmol/L (3.5-5.1); SODIUM 144 mmol/L (136-145)
[2016-11-18 12:43] LABS: ALB/GLOB RATIO 0.8 (0.9-2); ALKALINE PHOSPHATASE 95 U/L (45-117); CHOLESTEROL 61 mg/dl (0-200); HDL CHOLESTEROL 30 mg/dl; LDL CHOLESTEROL CALCULATED 20 mg/dl; TRIGLYCERIDES 57 mg/dl (0-150); VERY LOW DENSITY LIPOPROT CALC 11 mg/dl
[2016-11-18 13:01] LABS: ESTIMATED AVERAGE GLUCOSE 143 mg/dl; HA1C FLAG Normal (Normal)
[2016-11-18 13:06] LABS: URINE PROTIEN/CREAT RATIO 0.2 (0-0.2)
== END | disposition home or self-care (01) ==
LOC: C.LABPVFM 09:52
PROVIDERS: ATTEND Internal Medicine Nephrology
DX: E11.29 Type 2 diabetes mellitus with other diabetic kidney complication (principal); I42.9 Cardiomyopathy, unspecified; E78.5 Hyperlipidemia, unspecified; N18.3 Chronic kidney disease, stage 3 (moderate); E11.49 Type 2 diabetes mellitus with other diabetic neurological complication; E11.22 Type 2 diabetes mellitus with diabetic chronic kidney disease; E11.65 Type 2 diabetes mellitus with hyperglycemia; R60.9 Edema, unspecified; D64.9 Anemia, unspecified

== ENCOUNTER → 2016-11-27 | Outpatient (CLI) | payer OTHER, MEDICARE ==
--- NOTE | 2016-11-27 11:36 | DIAGNOSTIC IMAGING REPORT ---
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 A dose lowering technique was utilized adhering to the principles of ALARA. COMPARISON STUDY: Abdominal CT 02/24/2015. FINDINGS: The heart remains moderately enlarged. Small pericardial effusion has slightly increased in size. Pacemaker wires are noted. There are small bilateral pleural effusions which have also increased in size. Patchy bibasilar densities. There is an 11 mm groundglass nodule within the left lower lobe. No pneumoperitoneum. No pneumatosis. No suspicious lytic or blastic osseous lesions. Nodular contour to the liver consistent with cirrhosis. There are few hypodense lesions within the liver which remain unchanged. Dominant lesion within the right hepatic lobe measures 3.6 x 1.9 cm. The long-term stability favors a benign process. There is mild periportal edema. There are few punctate gallstones. The unenhanced spleen and pancreas appears unremarkable. Bilateral adrenal gland thickening/nodules remain stable. Stable 2.6 cm nodule at the gastrohepatic location demonstrating a fat fluid level. Stable retroperitoneal lymph nodes which are subcentimeter in short axis diameter. The bladder is unremarkable. Multiple brachytherapy seeds at the prostate gland. Moderate to severe body wall edema. Moderate to large amount of ascites. There is questionable omental nodularity. This is difficult to assess on this noncontrast study. This is most pronounced within the left upper quadrant anteriorly. Colonic diverticulosis. No definite bowel wall thickening or obstruction. Postsurgical changes suggestive of prior right hemicolectomy. Nonobstructing stone within the right kidney. Exophytic cyst within the lower pole the right kidney. Normal left kidney. IMPRESSION: 1. Moderate to large amount of ascites. There is questionable omental nodularity which raises the possibility of peritoneal carcinomatosis. However, this could be due to the venous engorgement. Recommend cytologic evaluation of the ascites. 2. Slight increase in size in a small pericardial effusion and small bilateral effusions. 3. There is an 11 mm left lower lobe groundglass nodule. This is highly suspicious for a low-grade pulmonary neoplasm. Dedicated chest CT is recommended for further evaluation. 4. Moderate to severe body wall edema. 5. Cirrhotic liver. Stable hypodense lesions within the liver. Therefore, these are likely benign. 6. Stable bilateral adrenal gland thickening/nodularity. 7. Right-sided nephrolithiasis. No hydronephrosis. 8. No change in the fat and fluid containing round lesion at the gastrohepatic location. Therefore, this is also likely benign. This may represent a lymphocele. 9. Cholelithiasis. Electronically signed by: Geronimo Lewis M.D. 11/27/2016 11:34 AM Dictated Date/Time: 11/27/2016 11:06 AM
== END | disposition home or self-care (01) ==
LOC: C.CTS 10:48
PROVIDERS: ATTEND Family Medicine
DX: R14.0 Abdominal distension (gaseous) (principal); C77.3 Secondary and unspecified malignant neoplasm of axilla and upper limb lymph nodes; R63.4 Abnormal weight loss; R18.8 Other ascites; I31.3 Pericardial effusion (noninflammatory); J90 Pleural effusion, not elsewhere classified; R91.1 Solitary pulmonary nodule; K74.60 Unspecified cirrhosis of liver; N20.0 Calculus of kidney; K80.20 Calculus of gallbladder without cholecystitis without obstruction

== ENCOUNTER → 2016-11-29 | Outpatient (CLI) | payer OTHER, MEDICARE ==
[2016-11-29 13:20] LABS: INR 1.2 (0.9-1.1); PROTHROMBIN TIME (PATIENT) 12.7 SECONDS (9.0-12.0)
[2016-11-29 13:43] LABS: ALB/GLOB RATIO 0.8 (0.9-2); ALKALINE PHOSPHATASE 89 U/L (45-117); ALT/SGPT 16 U/L (12-78); AST/SGOT 11 U/L (15-37); BLOOD UREA NITROGEN 39 mg/dl (7-18); BUN/CREATININE RATIO 24.2 (10-20); CALCIUM 8.7 mg/dl (8.5-10.1); CARBON DIOXIDE 31 mmol/L (21-32); CHLORIDE 107 mmol/L (98-107); GLUCOSE 103 mg/dl (70-99); POTASSIUM 4.4 mmol/L (3.5-5.1); SODIUM 142 mmol/L (136-145)
[2016-12-02 09:55] LABS: AFP TUMOR MARKER SERUM 0.8 NG/ML (<6.1)
== END | disposition home or self-care (01) ==
LOC: C.LAB 12:44
PROVIDERS: ATTEND Registered Nurse
DX: R93.5 Abnormal findings on diagnostic imaging of other abdominal regions, including retroperitoneum (principal)

== ENCOUNTER → 2016-12-04 | Outpatient (CLI) | payer OTHER, MEDICARE ==
--- NOTE | 2016-12-04 11:23 | DIAGNOSTIC IMAGING REPORT ---
(CHEST) THORAX WITHOUT CLINICAL HISTORY: 75 years-old Male presenting with 1 year follow-up of pulmonary nodule. TECHNIQUE: Multidetector CT imaging of the chest was performed without the use of intravenous contrast. IV contrast: 03/25/2012. A dose lowering technique was used consistent with the principles of ALARA (as low as reasonably achievable). COMPARISON: 03/25/[address] of the abdomen and pelvis from 11/27/2016. CT DOSE (mGy.cm): The estimated cumulative dose is 515.61 mGycm. FINDINGS: Hydrological Technical Officer topogram: Left implanted cardiac defibrillator with leads to the right ventricular apex, right atrium, and coronary sinus area cardiomegaly. On soft tissue windows, hypodense 11 mm nodule in the left thyroid lobe. Heterogeneity of the thyroid gland suggests multinodular goiter. Gynecomastia bilaterally. Numerous prominent mediastinal lymph nodes most pronounced in the paratracheal and subcarinal regions. These could be better defined with intravenous contrast. Evaluation of the latha is limited without intravenous contrast. Atherosclerosis of aortic arch. Ectasia of the ascending aorta, which measures 4.3 cm in transverse dimension. Multichamber enlargement of the heart. Mitral annular, aortic valve, and coronary artery calcification. Small pericardial effusion. Moderate bilateral pleural effusions. Moderate amount of abdominal ascites. The liver has a cirrhotic morphology. Borderline hepatic steatosis by liver density. Focal irregularity of the lateral aspect of the right hepatic lobe (series 4 image 314), incompletely characterized without intravenous contrast. This is unchanged since the prior CT from 02/24/2015. The peripheral and subcapsular nature of this lesion could suggest prior infarct or trauma or other benign etiology. Periportal edema noted. Nodular thickening of the adrenal glands. On lung windows, previously noted groundglass nodule in the left lower lobe persists and now measures 12 mm, previously 11 mm. And eccentric solid component along the left posterior lateral aspect measures 5 mm and is also similar to prior (series 4 image 187). Dependent opacities in the bilateral lung bases, possibly atelectasis. Apical predominant mild emphysema as well as paraseptal emphysematous changes at the apices. Mild bronchial wall thickening radius in the lower lobes. On bone windows, degenerative changes of the spine. IMPRESSION: 1. The 12 mm partially some solid and partially solid nodule in the left lower lobe is concerning for adenocarcinoma in situ. Short-term interval follow-up is recommended or Saya Society 2017 recommendations. If this nodule persists, tissue sampling, PET/CT, and/or resection the considered. 2. Emphysema. 3. Small pericardial effusion and moderate bilateral pleural effusions. 4. Prominent mediastinal lymph nodes, possibly reactive. Attention on follow-up. 5. Moderate ascites. 6. Ectasia of the ascending aorta, which measures 4.3 cm in transverse dimension. Please refer to below summary of Fleischner Society 2017 recommendations for follow-up of incidental CT nodules (Laura Eagle et al. Guidelines for management of incidental pulmonary nodules detected on CT images: From the Fleischner Society 2017. Radiology 2017; 284: 228-243.) SOLID NODULES Single nodule; size <6 mm * Low risk patients: No routine follow-up * High risk patients: Optional CT at 12 months Single nodule; size 6-8 mm * Low risk patients: CT at 6-12 months, then consider CT at 18-24 months * High risk patients: CT at 6-12 months, then at 18-24 months Single nodule; size >8 mm * Either low or high risk patients: Considered CT at 3 months, PET/CT, or tissue sampling Multiple nodules; size <6 mm * Low risk patients: No routine follow up * High risk patients: Optional CT at 12 months Multiple nodules; size 6-8 mm * Low risk patients: CT at 3-6 months, then consider CT at 18-24 months * High risk patients: CT at 3-6 months, then at 18-24 months Multiple nodules; size >8 mm * Low risk patients: CT at 3-6 months, then consider at 18-24 months * High risk patients: CT at 3-6 months, then at 18-24 months Note: These guidelines apply to incidental nodules. These guidelines did not apply to patients younger than 35 years, immunocompromised patients, or patients with cancer. * Low risk patients: Minimal or absent history of smoking and/or other known risk factors * High risk patients: History of smoking, exposure to other carcinogens, emphysema, fibrosis, upper lobe location, family history of lung cancer, etc. * If a nodule up to 8 mm is partly solid or is ground glass further follow-up is required after 24 months to exclude possible slow growing adenocarcinoma SUBSOLID NODULES Single ground-glass nodule * Nodule size < 6 mm: No routine follow-up * Nodule size > or = 6 mm: CT at 6-12 months to confirm persistence, then CT every 2 years until 5 years Single part-solid nodule * Nodule size < 6 mm: No routine follow-up * Nodules size > or = 6 mm: CT at 3-6 months to confirm persistence. If unchanged and solid component remains < 6 mm, annual CT should be performed for 5 years Multiple nodules * Nodule size < 6 mm: CT at 3-6 months. If stable, consider CT at 2 and 4 years. * Nodules size > or = 6 mm: CT at 3-6 months. Subsequent management based on the most suspicious nodule(s) Electronically signed by: Aleksander Benites M.D. 12/04/2016 11:22 AM Dictated Date/Time: 12/04/2016 11:07 AM
== END | disposition home or self-care (01) ==
LOC: C.CTS 10:41
PROVIDERS: ATTEND Family Medicine
DX: R91.1 Solitary pulmonary nodule (principal); J43.9 Emphysema, unspecified; J90 Pleural effusion, not elsewhere classified; I31.3 Pericardial effusion (noninflammatory); R59.0 Localized enlarged lymph nodes; R18.8 Other ascites; I77.810 Thoracic aortic ectasia

== ENCOUNTER → 2016-12-10 | Outpatient (CLI) | payer OTHER, MEDICARE ==
[2016-12-10 16:27] LABS: BASO % 0.2 %; BASO ABS # 0.01 K/uL (0-0.2); COMPLETE YES; EOS % 5.9 %; HEMATOCRIT 30.9 % (42-52); LYMPH % 8.9 %; LYMPH ABS # 0.44 K/uL (1.2-3.4); MEAN CELL VOLUME 93.1 fL (80-100); MEAN CORPUSCULAR HEMOGLOBIN 28.6 pg (25-34); MEAN CORPUSCULAR HGB CONC 30.7 g/dl (32-36); MONO % 6.7 %; NEUT % 78.3 %; PLATELET COUNT 162 K/uL (130-400); RED BLOOD COUNT 3.32 M/uL (4.7-6.1); WHITE BLOOD COUNT 4.94 K/uL (4.8-10.8)
[2016-12-10 16:47] LABS: ALT/SGPT 16 U/L (12-78); AST/SGOT 10 U/L (15-37); BLOOD UREA NITROGEN 32 mg/dl (7-18); BUN/CREATININE RATIO 23.2 (10-20); CALCIUM 8.9 mg/dl (8.5-10.1); CARBON DIOXIDE 33 mmol/L (21-32); CHLORIDE 105 mmol/L (98-107); GLUCOSE 108 mg/dl (70-99); MAGNESIUM 2.3 mg/dl (1.8-2.4); POTASSIUM 4.4 mmol/L (3.5-5.1); SODIUM 141 mmol/L (136-145)
[2016-12-10 16:50] LABS: ALB/GLOB RATIO 0.7 (0.9-2); ALKALINE PHOSPHATASE 92 U/L (45-117)
== END | disposition home or self-care (01) ==
LOC: C.LAB1850 15:30
PROVIDERS: ATTEND Internal Medicine Cardiovascular Disease
DX: R93.5 Abnormal findings on diagnostic imaging of other abdominal regions, including retroperitoneum (principal); I42.9 Cardiomyopathy, unspecified; R60.9 Edema, unspecified; I87.2 Venous insufficiency (chronic) (peripheral); L97.929 Non-pressure chronic ulcer of unspecified part of left lower leg with unspecified severity; E11.40 Type 2 diabetes mellitus with diabetic neuropathy, unspecified; I11.0 Hypertensive heart disease with heart failure; I50.9 Heart failure, unspecified; Z85.46 Personal history of malignant neoplasm of prostate; Z95.0 Presence of cardiac pacemaker; Z95.5 Presence of coronary angioplasty implant and graft; Z85.828 Personal history of other malignant neoplasm of skin; Z79.899 Other long term (current) drug therapy; Z79.4 Long term (current) use of insulin; M35.3 Polymyalgia rheumatica

== ENCOUNTER → 2017-02-03 | Outpatient (CLI) | payer OTHER ==
[2017-02-03 17:43] LABS: PLATELET COUNT 200 K/uL (130-400)
[2017-02-03 17:51] LABS: INR 1.1 (0.9-1.1); PARTIAL THROMBOPLASTIN RATIO 1.2; PROTHROMBIN TIME (PATIENT) 12.2 SECONDS (9.0-12.0)
== END | disposition home or self-care (01) ==
LOC: C.LABPVFM 14:56
PROVIDERS: ATTEND Family Medicine Adult Medicine
DX: R18.8 Other ascites (principal)

== ENCOUNTER 2017-02-18 00:10 | Emergency (ER) | payer OTHER, MEDICARE ==
[~2017-02-18] VITALS: Ht 182.9 cm; Wt 106.0 kg
[~2017-02-18 00:10] MED LIST changes: -ALL100 PO; +ALLO100T PO
[2017-02-18 00:16] VITALS: TEMP 36.7; Ht 182.9 cm; Wt 106.0 kg
--- NOTE | 2017-02-18 00:37 | EMERGENCY ROOM VISIT NOTE ---
History Report prepared by Sloane: Dvaina Lao Under the Supervision of: Art GordonO. First contact with patient: 00:21 Chief Complaint: OTHER COMPLAINT Stated Complaint: POST PERICENTESIS COMPICATION History of Present Illness The patient is a 76 year old male who presents to the Emergency Room with complaints of a sudden post paracentesis complication occurring shortly prior to arrival. The patient states that he had paracentesis done today at 1300 and that the site is leaking. He states that he had it in November, his weight went back up, but then he had a distended stomach. The patient states that he has never had this fluid problem before. The patient states that after his paracentesis today he went home, ate, and around 2200 he noticed that he was leaking. The patient denies nausea, vomiting, fevers, and chills. He states that he has a pacemaker defibrillator. Source of History: patient Onset: shortly prior to arrival Position: abdomen Quality: other (post paracentesis complication ) Timing: other (sudden) Associated Symptoms: No fevers, No chills, No nausea, No vomiting Review of Systems See HPI for pertinent positives & negatives. A total of 10 systems reviewed and were otherwise negative. Past Medical & Surgical Medical Problems: (1) Diabetic peripheral neuropathy associated with type 2 diabetes mellitus (2) Ischemic cardiomyopathy (3) Loss of sensation (4) Peripheral vascular disease (5) Prostate cancer Family History No pertinent family history stated. Social History Smoking Status: Never Smoker Drug Use: none Marital Status: Occupation Status: disabled Current/Historical Medications Scheduled Allopurinol (Zyloprim), 1 TAB PO DAILY Aspirin Enteric Coated (Ecotrin Or Generic *), 81 MG PO DAILY Calcium Carbonate-Vitamin D W/ (Caltrate 600 Plus), 1 TAB PO DAILY Carvedilol (Coreg *), 37.5 MG PO BID Cholecalciferol (Vitamin D), 2,000 INTER.UNIT PO DAILY Cyanocobalamin (Vitamin B-12), 1,000 MCG PO DAILY Digoxin (Digox), Unknown Dose PO DAILY Enalapril (Vasotec), 20 MG PO BID Epoetin Erick (Procrit), 40,000 UNIT SC BLANK Ferrous Sulfate (Kp Ferrous Sulfate), 1 TAB PO DAILY Furosemide (Lasix), 120 MG PO DAILY Insulin Aspart (Novolog), UNITS SQ DIRECTED Insulin Glargine (Lantus), 14 UNITS SC QPM Lactobacillus Acidophilus (Lactinex), 1 TAB PO DAILY Simvastatin (Zocor), 20 MG PO HS Allergies Coded Allergies: No Known Allergies (Verified , 02/17/17) Physical Exam Vital Signs Date Time Temp Pulse Resp B/P (MAP) Pulse Ox O2 Delivery O2 Flow Rate FiO2 02/18/17 01:45 60 18 115/53 91 Room Air 02/18/17 00:18 74 02/18/17 00:16 36.7 76 16 115/60 98 Room Air Physical Exam HEENT: Head - normocephalic and atraumatic Pupils are equal, round, and reactive to light. Extraocular eye muscles are intact, and sclera are anicteric. Nose - moist nasal mucosa without discharge. Mouth - moist buccal mucosa. Oropharynx is nonerythematous and there is no tonsillar exudate or edema noted. Neck: Supple; no JVD, nuchal rigidity, cervical lymphadenopathy. Heart: Regular rate and rhythm. There is a normal S1 and S2 with no murmurs, clicks, or gallops appreciated. Lungs: Clear to auscultation bilaterally with no wheezes, rales, or rhonchi. Abdomen: Soft with good bowel sounds. Moderately distended. Leaking serosanguineous fluid from the paracentesis site. Abdominal wall is warm and red. Moderate pain to palpation in the right lower quadrant. There are no palpable pulsatile masses or hepatosplenomegaly. There is no guarding, rigidity , or rebound noted. Extremities: No evidence of cyanosis, clubbing, or edema. There are easily palpable peripheral pulses. Skin: warm and dry with good turgor and no rashes. Medical Decision & Procedures ER Provider Diagnostic Interpretation: Radiology results as stated below per my review and [facility]. CT ABDOMEN & PELVIS Without Contrast: Comparison: 11/27/2016 Impression: No evidence of free air to suggest bowel perforation. Additional findings: Small bilateral pleura effusions. Scattered nodular consolidation seen within the lung bases likely atelectasis with an inflammatory or infectious process not excluded Small pericardial effusion. Moderate enlargement of the heart with biventricular pacemaker noted. Cirrhotic liver. 3.5cm low-density lesion seen within hepatic segment 8 (2-25). There is an additional low-density lesion within hepatic segment 6 measuring up to 14 mm (2-46). Findings are incompletely evaluated given lack of IV contrast. Findings are not significant. Changes compared with the prior. Gallstones. Spleen and pancreas are unremarkable. Mild thickening of both adrenal glands. No nodules. Nonobstructing calculus within the right kidney. No hydronephrosis. Brachytherapy seeds are noted within the prostate gland. Large amount of ascites. A few scattered noninflamed colonic diverticula. Evidence of prior right hemicolectomy and appendectomy. No acute osseous abnormality. Laboratory Results 02/18/17 00:23 Red Blood Count 3.17, Mean Corpuscular Volume 92.4, Mean Corpuscular Hemoglobin 29.0, Mean Corpuscular Hemoglobin Concent 31.4, Mean Platelet Volume 10.1, Neutrophils (%) (Auto) 76.5, Lymphocytes (%) (Auto) 8.0, Monocytes (%) (Auto) 8.3, Eosinophils (%) (Auto) 6.8, Basophils (%) (Auto) 0.2, Neutrophils # (Auto) 3.15, Lymphocytes # (Auto) 0.33, Monocytes # (Auto) 0.34, Eosinophils # (Auto) 0.28, Basophils # (Auto) 0.01 02/18/17 00:23 Test 02/18/17 00:23 White Blood Count 4.12 K/uL (4.8-10.8) Red Blood Count 3.17 M/uL (4.7-6.1) Hemoglobin 9.2 g/dL (14.0-18.0) Hematocrit 29.3 % (42-52) Mean Corpuscular Volume 92.4 fL (80-100) Mean Corpuscular Hemoglobin 29.0 pg (25-34) Mean Corpuscular Hemoglobin Concent 31.4 g/dl (32-36) Platelet Count 133 K/uL (130-400) Mean Platelet Volume 10.1 fL (7.4-10.4) Neutrophils (%) (Auto) 76.5 % Lymphocytes (%) (Auto) 8.0 % Monocytes (%) (Auto) 8.3 % Eosinophils (%) (Auto) 6.8 % Basophils (%) (Auto) 0.2 % Neutrophils # (Auto) 3.15 K/uL (1.4-6.5) Lymphocytes # (Auto) 0.33 K/uL (1.2-3.4) Monocytes # (Auto) 0.34 K/uL (0.11-0.59) Eosinophils # (Auto) 0.28 K/uL (0-0.5) Basophils # (Auto) 0.01 K/uL (0-0.2) RDW Standard Deviation 58.4 fL (36.4-46.3) RDW Coefficient of Variation 17.3 % (11.5-14.5) Immature Granulocyte % (Auto) 0.2 % Immature Granulocyte # (Auto) 0.01 K/uL (0.00-0.02) Prothrombin Time 13.0 SECONDS (9.0-12.0) Prothromb Time International Ratio 1.2 (0.9-1.1) Activated Partial Thromboplast Time 28.5 SECONDS (21.0-31.0) Partial Thromboplastin Ratio 1.1 Anion Gap 6.0 mmol/L (3-11) Est Creatinine Clear Calc Drug Dose 48.5 ml/min Estimated GFR () 45.7 Estimated GFR (Non- 39.4 BUN/Creatinine Ratio 30.9 (10-20) Calcium Level 8.8 mg/dl (8.5-10.1) Total Bilirubin 0.4 mg/dl (0.2-1) Aspartate Amino Transf (AST/SGOT) 13 U/L (15-37) Alanine Aminotransferase (ALT/SGPT) 15 U/L (12-78) Alkaline Phosphatase 90 U/L (45-117) Total Protein 6.5 gm/dl (6.4-8.2) Albumin 2.7 gm/dl (3.4-5.0) Globulin 3.8 gm/dl (2.5-4.0) Albumin/Globulin Ratio 0.7 (0.9-2) Laboratory results per my review. ED Course 0029: Past medical records reviewed. The patient was evaluated in room A12B. A complete history and physical exam was performed. Labs were drawn as above. The patient went for CT scan of the abdomen/pelvis to rule out free air. 0150: I reexamined the patient. His abdomen is not as tender. The nursing staff put an ostomy bag over the paracentesis hole and it is collecting the fluid. 0200: Upon reevaluation, the patient is resting. I discussed findings and results with him. He verbalized agreement of the treatment plan. He was discharged home. Medical Decision The patient is a 76 year old male who presents to the ED with a post paracentesis complication. Differential diagnosis includes subacute bacterial peritonitis, cellulitis of the abdominal wall, patent paracentesis tract, and bowel perforation. Lab results are as follows: Lactic 0.97 WBC 4.1 Hemoglobin 9.2 Platelet count 133 Glucose 111 Bun 52 Creatinine 1.6 LFTs are normal Albumin low at 2.7 INR 1.2 The patient presented to the emergency department with fluid leaking from the site of his paracentesis from earlier today. Physical exam, the patient did have some discomfort with palpation around that site and some noted warmth and erythema to the skin in that area. The patient has no obvious signs of infection. CT scan was unremarkable. I explained the patient that this hole will eventually seal itself off. In the meantime, it will continues to drain fluid. I've asked the patient to return to the emergency department immediately. If develops any increased pain to the abdomen, redness to the abdominal wall, or fever. Medication Reconcilliation Current Medication List: was personally reviewed by me Blood Pressure Screening Patient's blood pressure: Normal blood pressure Impression Primary Impression: draining paracentesis hole Scribe Attestation The scribe's documentation has been prepared under my direction and personally reviewed by me in its entirety. I confirm that the note above accurately reflects all work, treatment, procedures, and medical decision making performed by me. Departure Information Dispostion Home / Self-Care Referrals Elba Johns M.D. (PCP) Forms HOME CARE DOCUMENTATION FORM, IMPORTANT VISIT INFORMATION, WORK / SCHOOL INSTRUCTIONS Patient Instructions My [facility] Additional Instructions Continue to drain Ostomy bag as it fills up. Rest. Follow up today for an abdominal recheck with PCP Return to the ER if you develop a fever or worsening abdominal pain
[2017-02-18 00:56] LABS: BASO % 0.2 %; BASO ABS # 0.01 K/uL (0-0.2); COMPLETE YES; EOS % 6.8 %; HEMATOCRIT 29.3 % (42-52); IG% 0.2 %; LYMPH ABS # 0.33 K/uL (1.2-3.4); MEAN CELL VOLUME 92.4 fL (80-100); MEAN CORPUSCULAR HGB CONC 31.4 g/dl (32-36); MEAN PLATELET VOLUME 10.1 fL (7.4-10.4); MONO % 8.3 %; NEUT % 76.5 %; PLATELET COUNT 133 K/uL (130-400); RED BLOOD COUNT 3.17 M/uL (4.7-6.1); WHITE BLOOD COUNT 4.12 K/uL (4.8-10.8)
[2017-02-18 01:06] LABS: INR 1.2 (0.9-1.1); PARTIAL THROMBOPLASTIN RATIO 1.1
[2017-02-18 01:14] LABS: BUN/CREATININE RATIO 30.9 (10-20); CALCIUM 8.8 mg/dl (8.5-10.1); CREATININE 1.68 mg/dl (0.60-1.40); POTASSIUM 4.3 mmol/L (3.5-5.1)
[2017-02-18 01:17] LABS: ALB/GLOB RATIO 0.7 (0.9-2)
[2017-02-18 01:45] VITALS: BP 115/53; PULSE 60; O2SAT 91
--- NOTE | 2017-02-18 06:41 | DIAGNOSTIC IMAGING REPORT ---
CT SCAN OF THE ABDOMEN AND PELVIS WITHOUT CONTRAST CLINICAL HISTORY: Abdominal pain status post paracentesis. Evaluate for bowel perforation. COMPARISON STUDY: 11/27/2016 TECHNIQUE: CT scan of the abdomen and pelvis was performed from the lung bases to the proximal femurs. Images are reviewed in the axial, sagittal, and coronal planes. IV contrast was not administered for this examination. A dose lowering technique was utilized adhering to the principles of ALARA. CT DOSE: 1309.67 mGy.cm FINDINGS: Lower chest: The heart is enlarged. There is a small pericardial effusion. There are bilateral pleural effusions. Liver: There is a stable linear hyperdense area extending to the capsule within the right lobe. The liver has a slightly nodular contour. Mild periportal edema is suspected. Gallbladder: Cholelithiasis Spleen: Normal in size and attenuation. Pancreas: Unremarkable. Adrenal glands: There is bilateral adrenal gland thickening similar to the prior study. Kidneys: There is a nonobstructing 4 mm lower pole right renal calculus. No ureteral calculi are visualized. Bowel: Postsurgical changes are evident. There is no evidence of bowel obstruction. There are postsurgical changes a right hemicolectomy. There are colonic diverticula present.. Peritoneum: There is a moderate volume of ascites. No free air is visualized. Vasculature: The abdominal aorta is normal in course and caliber. Adenopathy: None. Pelvic viscera: Prostate radiotherapy seeds are visualized. Skeletal structures: No destructive osseous lesions are seen. IMPRESSION: 1. Cardiomegaly, small pericardial effusion, and bilateral pleural effusions 3. Ascites 4. No evidence of bowel obstruction. No evidence of free air 5. Stable right lobe hepatic lesion 6. Generalized body wall edema 7. Cirrhotic morphology of the liver 8. Right-sided nephrolithiasis. 9. Cholelithiasis Electronically signed by: Umair Daly M.D. 02/18/2017 6:40 AM Dictated Date/Time: 02/18/2017 6:34 AM
[2017-02-20] MEDS ORDERED: SPR25 PO (11:52)
== END 2017-02-18 02:14 | disposition home or self-care (01) ==
LOC: EDBD 00:10 → C.EDA 00:11
DX: T85.898A Other specified complication of other internal prosthetic devices, implants and grafts, initial encounter (principal); X58.XXXA Exposure to other specified factors, initial encounter; E11.42 Type 2 diabetes mellitus with diabetic polyneuropathy; I25.5 Ischemic cardiomyopathy; I73.9 Peripheral vascular disease, unspecified; Z85.46 Personal history of malignant neoplasm of prostate; Z79.82 Long term (current) use of aspirin; Z79.4 Long term (current) use of insulin; Z79.899 Other long term (current) drug therapy

== ENCOUNTER → 2017-03-11 | Outpatient (CLI) | payer OTHER, MEDICARE ==
[~2017-03-11] MED LIST changes: +OPTIRAY 320 IV PRN; +SPR25 PO
--- NOTE | 2017-03-11 15:19 | DIAGNOSTIC IMAGING REPORT ---
(CHEST) THORAX WITH CT DOSE: 1247.82 mGycm HISTORY: Colon carcinoma. Metastatic disease. ANEMIA, HX COLON CA TECHNIQUE: Multiaxial CT images of the chest were performed following the intravenous administration of contrast. A dose lowering technique was utilized adhering to the principles of ALARA. COMPARISON: 12/04/2016 FINDINGS: Bilateral pleural effusions similar compared to the prior exam. Basilar pulmonary nodularity on the left is unchanged at 12 mm. Additional nodular densities of the left lung base are present measuring up to 8 mm. There is minimal nodularity right lung base primarily of the lateral costophrenic angle measuring up to 5 mm. Heart remains enlarged. Calcification of the coronary arterial vasculature is present. The mediastinal and hilar adenopathy remains stable. Moderate degenerative change of the thoracic spine also stable IMPRESSION: 1. Bilateral pleural effusions unchanged from the prior study. 2. Basilar pulmonary nodularity mildly progressive from the prior study. This suggests metastatic disease. 3. Upper abdominal ascites similar. 4. Mild body wall anasarca. The above report was generated using voice recognition software. It may contain grammatical, syntax or spelling errors. Electronically signed by: Juan C Vazquez M.D. 03/11/2017 3:18 PM Dictated Date/Time: 03/11/2017 3:12 PM
--- NOTE | 2017-03-11 15:25 | DIAGNOSTIC IMAGING REPORT ---
ABDOMEN AND PELVIS CT WITH IV AND ORAL CONTRAST CT DOSE: HISTORY: Colon cancer. Ascites. TECHNIQUE: Multiaxial CT images of the abdomen and pelvis were performed following the use of intravenous and oral contrast. A dose lowering technique was utilized adhering to the principles of ALARA. COMPARISON STUDY: Abdomen and pelvis CT 02/18/2017. FINDINGS: Small bilateral pleural effusions and a small pericardial effusion are again noted. Pacemaker wires are present. The heart is enlarged. Mild interstitial thickening at the lung bases. Multiple subcentimeter pulmonary nodules are seen at the lung bases. The largest measures 5 mm. There are 2 hypodense lesions within the right hepatic lobe with the largest measuring 3.6 x 2.2 cm. These are not significant changed. This lesion demonstrates capsular retraction. Punctate gallstone. Normal spleen. Nodular thickening of the bilateral renal glands, left greater the right. This is also unchanged. The pancreas enhances normally. Subcentimeter retroperitoneal lymph nodes remain stable. Moderate ascites, unchanged. 5 mm stone within the lower pole the right kidney. No hydronephrosis. Bilateral perinephric edema. Right renal hypodense lesions remain stable and likely represent cysts. Normal bladder. Multiple brachytherapy seeds seen within the prostate gland. No evidence for bowel obstruction. Suggest of a prior right hemicolectomy. No suspicious lytic or blastic osseous lesions. IMPRESSION: 1. Moderate ascites, unchanged. 2. Multiple subcentimeter pulmonary nodules are again noted at the lung bases. This is better appreciated on the same day chest CT. 3. Cardiomegaly, small pericardial effusion, and small bilateral pleural effusions persist. 4. No change in the dominant right hepatic lobe lesion. 5. No bowel wall thickening or obstruction. 6. Stable nodular thickening of the bilateral adrenal glands. Electronically signed by: Geronimo Lewis M.D. 03/11/2017 3:24 PM Dictated Date/Time: 03/11/2017 3:14 PM
== END | disposition home or self-care (01) ==
LOC: C.CTS 14:18
PROVIDERS: ATTEND Internal Medicine Hematology & Oncology
DX: Z85.038 Personal history of other malignant neoplasm of large intestine (principal); D64.9 Anemia, unspecified; R18.8 Other ascites; R91.8 Other nonspecific abnormal finding of lung field

== ENCOUNTER → 2017-03-25 | Outpatient (CLI) | payer OTHER, MEDICARE ==
[~2017-03-25] MED LIST changes: -OPTIRAY 320 IV PRN
[2017-03-25 12:45] LABS: URINE APPEARANCE CLEAR (CLEAR); URINE BILIRUBIN NEG (NEG); URINE COLOR ORANGE; URINE EPITHELIAL CELL AUTO 0-5 /lpf (0-5); URINE NITRITE NEG (NEG); URINE SPECIFIC GRAVITY 1.009 (1.000-1.030); UROBILINOGEN NEG (NEG)
[2017-03-25 12:57] LABS: MANUAL MICROSCOPIC REQUIRED? NO; REVIEW REQ? NO
[2017-03-25 13:02] LABS: HEMATOCRIT 29.2 % (42-52); MEAN CELL VOLUME 94.8 fL (80-100); MEAN CORPUSCULAR HEMOGLOBIN 29.5 pg (25-34); MEAN CORPUSCULAR HGB CONC 31.2 g/dl (32-36); MEAN PLATELET VOLUME 10.2 fL (7.4-10.4); PLATELET COUNT 183 K/uL (130-400); RED BLOOD COUNT 3.08 M/uL (4.7-6.1); WHITE BLOOD COUNT 5.58 K/uL (4.8-10.8)
[2017-03-25 13:04] LABS: CREATININE, URINE 16.3 mg/dl; URINE TOTAL PROTEIN < 5.0 mg/dl (0-11.9)
[2017-03-25 13:14] LABS: ALKALINE PHOSPHATASE 96 U/L (45-117); ALT/SGPT 18 U/L (12-78); AST/SGOT 14 U/L (15-37); BLOOD UREA NITROGEN 48 mg/dl (7-18); BUN/CREATININE RATIO 26.9 (10-20); CALCIUM 8.9 mg/dl (8.5-10.1); CARBON DIOXIDE 29 mmol/L (21-32); CHLORIDE 105 mmol/L (98-107); CREATININE 1.79 mg/dl (0.60-1.40); GLUCOSE 75 mg/dl (70-99); POTASSIUM 4.8 mmol/L (3.5-5.1); SODIUM 137 mmol/L (136-145)
[2017-03-25 13:16] LABS: ALB/GLOB RATIO 0.6 (0.9-2)
== END | disposition home or self-care (01) ==
LOC: C.LABPVFM 10:26
PROVIDERS: ATTEND Internal Medicine Nephrology
DX: I12.9 Hypertensive chronic kidney disease with stage 1 through stage 4 chronic kidney disease, or unspecified chronic kidney disease (principal); E55.9 Vitamin D deficiency, unspecified; N18.3 Chronic kidney disease, stage 3 (moderate); N25.81 Secondary hyperparathyroidism of renal origin; D64.9 Anemia, unspecified; R60.9 Edema, unspecified; R18.8 Other ascites

== ENCOUNTER → 2017-05-07 | Outpatient (CLI) | payer OTHER, MEDICARE ==
--- NOTE | 2017-05-07 10:21 | DIAGNOSTIC IMAGING REPORT ---
CHEST 2 VIEWS ROUTINE CLINICAL HISTORY: CHEST WALL PAIN COMPARISON STUDY: 06/14/2016, CT scan dated 03/11/2017 FINDINGS: The heart is markedly enlarged. There is a left subclavian pacer/defibrillator present. There is increased density within the left upper lobe. I would favor this representing a summation, as no corresponding mass was visualized on a CT scan performed within the last 2 months. There are trace bilateral pleural effusions. IMPRESSION: 1. Marked cardiomegaly 2. Trace bilateral pleural effusions 3. Ill-defined focus of increased density within the left upper lobe. As no corresponding mass was visualized on the CT scan performed in the last 2 months, this may represent a summation. If symptoms persist, a repeat chest x-ray or repeat CT scanning could be obtained in follow-up. Electronically signed by: Umair Daly M.D. 05/07/2017 10:20 AM Dictated Date/Time: 05/07/2017 10:16 AM
== END | disposition home or self-care (01) ==
LOC: C.RADPV 09:57
PROVIDERS: ATTEND Family Medicine
DX: R07.89 Other chest pain (principal); I51.7 Cardiomegaly

== ENCOUNTER → 2017-05-09 | Outpatient (CLI) | payer OTHER, MEDICARE ==
[~2017-05-09] MED LIST changes: +BUME1TAB PO; +CEPH500C2 PO; +METO2.5T PO
[2017-05-09 13:23] LABS: EOS % 2.8 %; EOS ABS # 0.15 K/uL (0-0.5); HEMATOCRIT 27.3 % (42-52); HEMOGLOBIN 8.8 g/dL (14.0-18.0); IG# 0.01 K/uL (0.00-0.02); LYMPH % 7.4 %; MEAN CELL VOLUME 93.2 fL (80-100); MEAN CORPUSCULAR HGB CONC 32.2 g/dl (32-36); MEAN PLATELET VOLUME 9.9 fL (7.4-10.4); MONO % 7.1 %; MONO ABS # 0.38 K/uL (0.11-0.59); NEUT % 82.5 %; NEUT ABS # 4.43 K/uL (1.4-6.5); PLATELET COUNT 171 K/uL (130-400); RED CELL DISTRIBUTION WIDTH CV 16.6 % (11.5-14.5); RED CELL DISTRIBUTION WIDTH SD 56.5 fL (36.4-46.3); WHITE BLOOD COUNT 5.37 K/uL (4.8-10.8)
[2017-05-09 16:04] LABS: ALBUMIN 2.6 gm/dl (3.4-5.0); ALT/SGPT 16 U/L (12-78); BLOOD UREA NITROGEN 92 mg/dl (7-18); CARBON DIOXIDE 22 mmol/L (21-32); CREATININE 2.48 mg/dl (0.60-1.40); GLUCOSE 77 mg/dl (70-99); POTASSIUM 5.1 mmol/L (3.5-5.1); SODIUM 140 mmol/L (136-145)
[2017-05-09 16:07] LABS: ALKALINE PHOSPHATASE 72 U/L (45-117); AST/SGOT 13 U/L (15-37)
== END | disposition home or self-care (01) ==
LOC: C.LAB1850 12:31
PROVIDERS: ATTEND Internal Medicine Hematology & Oncology
DX: D64.9 Anemia, unspecified (principal); I50.22 Chronic systolic (congestive) heart failure

== ENCOUNTER → 2017-05-15 | Outpatient (CLI) | payer OTHER, MEDICARE ==
[~2017-05-15] MED LIST changes: -FRS/40 PO
[2017-05-15 17:45] LABS: BLOOD UREA NITROGEN 103 mg/dl (7-18); CALCIUM 8.8 mg/dl (8.5-10.1); CARBON DIOXIDE 25 mmol/L (21-32); GLUCOSE 101 mg/dl (70-99); POTASSIUM 5.1 mmol/L (3.5-5.1); SODIUM 140 mmol/L (136-145)
== END | disposition home or self-care (01) ==
LOC: C.LABPVFM 15:08
PROVIDERS: ATTEND Physician Assistant
DX: I42.9 Cardiomyopathy, unspecified (principal)

== ENCOUNTER → 2017-05-19 | Outpatient (CLI) | payer OTHER, MEDICARE ==
[2017-05-19 12:32] LABS: ALBUMIN 2.6 gm/dl (3.4-5.0); ALT/SGPT 18 U/L (12-78); AST/SGOT 12 U/L (15-37); BLOOD UREA NITROGEN 112 mg/dl (7-18); CALCIUM 8.9 mg/dl (8.5-10.1); CARBON DIOXIDE 22 mmol/L (21-32); CREATININE 2.89 mg/dl (0.60-1.40); GLUCOSE 77 mg/dl (70-99); POTASSIUM 5.2 mmol/L (3.5-5.1); SODIUM 141 mmol/L (136-145)
[2017-05-19 12:33] LABS: INR 1.1 (0.9-1.1); PTT PATIENT 29.4 SECONDS (21.0-31.0)
[2017-05-19 12:38] LABS: ALKALINE PHOSPHATASE 65 U/L (45-117); TOTAL PROTEIN 7.3 gm/dl (6.4-8.2)
[2017-05-19 13:21] LABS: HEP C IGG 13 YRS+OLDER_RFLX NEG (NEG)
[2017-05-21 16:42] LABS: HEPATITIS B CORE IGM TC51854R NON-REACTIVE (NON-REACTIVE)
== END | disposition home or self-care (01) ==
LOC: C.LAB1850 11:16
PROVIDERS: ATTEND Registered Nurse
DX: K74.60 Unspecified cirrhosis of liver (principal); K76.9 Liver disease, unspecified; D64.9 Anemia, unspecified; I50.22 Chronic systolic (congestive) heart failure; N18.3 Chronic kidney disease, stage 3 (moderate)

== ENCOUNTER 2017-05-26 16:00 | Emergency (ER) | payer OTHER, MEDICARE ==
[~2017-05-26] VITALS: Ht 182.9 cm; Wt 99.0 kg
[~2017-05-26 16:00] MED LIST changes: -METO2.5T PO
[2017-05-26 16:08] VITALS: Ht 182.9 cm; Wt 99.0 kg
[2017-05-26 17:23] LABS: BASO % 0.2 %; BASO ABS # 0.01 K/uL (0-0.2); EOS % 3.8 %; EOS ABS # 0.23 K/uL (0-0.5); HEMATOCRIT 28.4 % (42-52); LYMPH % 8.1 %; LYMPH ABS # 0.49 K/uL (1.2-3.4); MEAN CELL VOLUME 93.4 fL (80-100); MEAN CORPUSCULAR HEMOGLOBIN 29.6 pg (25-34); MEAN CORPUSCULAR HGB CONC 31.7 g/dl (32-36); MEAN PLATELET VOLUME 9.8 fL (7.4-10.4); NEUT % 82.9 %; NEUT ABS # 5.03 K/uL (1.4-6.5); PLATELET COUNT 167 K/uL (130-400); RED CELL DISTRIBUTION WIDTH CV 16.9 % (11.5-14.5); RED CELL DISTRIBUTION WIDTH SD 57.4 fL (36.4-46.3); WHITE BLOOD COUNT 6.06 K/uL (4.8-10.8)
[2017-05-26 17:42] LABS: ALBUMIN 2.6 gm/dl (3.4-5.0); CALCIUM 8.9 mg/dl (8.5-10.1); CREATININE 2.13 mg/dl (0.60-1.40); POTASSIUM 5.6 mmol/L (3.5-5.1)
[2017-05-26 17:45] LABS: TOTAL PROTEIN 6.8 gm/dl (6.4-8.2)
[2017-05-26 19:06] VITALS: TEMP 36.6
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
[2017-05-26 21:20] VITALS: BP 121/45; PULSE 60; O2SAT 96
[2017-05-26] MEDS ORDERED: ONDANSETRON HOME PACK 4MG OD TAB PO ONE (21:30)
--- NOTE | 2017-05-26 22:35 | EMERGENCY ROOM VISIT NOTE ---
History Report prepared by [place]: Brent Martinez Under the Supervision of: Dr. Gurpreet Bland D.O. First contact with patient: 16:50 Chief Complaint: WOUND DEHISCENCE Stated Complaint: S/P PARACENTISIS, SITE OPENED Nursing Triage Summary: PT HERE WITH CLEAR DRAINAGE FROM ABD SITE THAT BEGAN APPROX ONE HOUR AGO. PT HAS HX PARACENTESIS LAST WEEK DONE HERE. PT DENIES ANY PAIN. History of Present Illness The patient is a 76 year old male who presents to the Emergency Room with complaints of persistent leaking from the site of his paracentesis starting around 2 hours ago. He notes that the drainage is a straw like color. The patient states that he had a paracentesis done 6 days ago, and it had been doing well until around 2 hours prior to arrival. He notes that he has 11.5 liters taken out with the paracentesis. The patient states that he has had 3 paracentesis done.The first one he had no wound drainage, and the second time he had some leaking, and he had to get a colostomy bag for a couple of days. The patient states that he does not drink alcohol. Pt denies headache, change in vision, fevers, chest pain, shortness of breath, nausea, vomiting, diarrhea, pain with urination, and melena. Source of History: patient Onset: 2 hours ago Position: other (site of paracentesis) Quality: other (leaking) Timing: other (persistent) Associated Symptoms: No chest pain, No SOB, No nausea, No vomiting Review of Systems See HPI for pertinent positives & negatives. A total of 10 systems reviewed and were otherwise negative. Past Medical & Surgical Medical Problems: (1) Ascites (2) Diabetic peripheral neuropathy associated with type 2 diabetes mellitus (3) Ischemic cardiomyopathy (4) Loss of sensation (5) Peripheral vascular disease (6) Prostate cancer Social History Smoking Status: Former Smoker Drug Use: none Marital Status: Occupation Status: disabled Current/Historical Medications Scheduled Allopurinol (Zyloprim), 1 TAB PO DAILY Aspirin Enteric Coated (Ecotrin Or Generic *), 81 MG PO DAILY Bumetanide (Bumex), 2 TAB PO DAILY Calcium Carbonate-Vitamin D W/ (Caltrate 600 Plus), 1 TAB PO DAILY Carvedilol (Coreg *), 12.5 MG PO DAILY Cephalexin Monohydrate (Keflex), 500 MG PO TID Cholecalciferol (Vitamin D), 2,000 INTER.UNIT PO DAILY Cyanocobalamin (Vitamin B-12), 1,000 MCG PO DAILY Digoxin (Digox), Unknown Dose PO DAILY Enalapril (Vasotec), 20 MG PO BID Ferrous Sulfate (Kp Ferrous Sulfate), 1 TAB PO DAILY Insulin Aspart (Novolog), UNITS SQ DIRECTED Insulin Glargine (Lantus), 14 UNITS SC QPM Lactobacillus Acidophilus (Lactinex), 1 TAB PO DAILY Simvastatin (Zocor), 20 MG PO HS Spironolactone (Spironolactone), 12.5 MG PO QAM Allergies Coded Allergies: No Known Allergies (Verified , 05/20/17) Physical Exam Vital Signs Date Time Temp Pulse Resp B/P (MAP) Pulse Ox O2 Delivery O2 Flow Rate FiO2 05/26/17 21:20 60 121/45 96 Room Air 05/26/17 19:06 36.6 60 18 115/60 96 Room Air 05/26/17 17:30 62 18 110/62 96 Room Air 05/26/17 16:08 36.7 89 18 116/51 97 Room Air Physical Exam GENERAL: Sitting up in bed, chronically ill appearing, no acute distress, non- toxic. EYE EXAM: normal conjunctiva. OROPHARYNX: no exudate, no erythema, lips, buccal mucosa, and tongue normal and mucous membranes are moist NECK: supple, no nuchal rigidity, no adenopathy, non-tender LUNGS: Clear to auscultation. Normal chest wall mechanics HEART: no murmurs, S1 normal and S2 normal ABDOMEN: Distended with positive fluid wave. Small hole at the right mid abdomen leaking clear fluid. No surrounding erythema or induration. Non-tender, normo-active bowel sounds, no rebound or guarding. BACK: Back is symmetrical on inspection and there is no deformity, no midline tenderness, no CVA tenderness. SKIN: no rashes and no bruising UPPER EXTREMITIES: upper extremities are grossly normal. LOWER EXTREMITIES: No pitting edema. NEURO EXAM: Normal sensorium, cranial nerves II-XII grossly intact, normal speech, no gross weakness of arms, no gross weakness of legs. Medical Decision & Procedures Laboratory Results 05/26/17 17:07 Red Blood Count 3.04, Mean Corpuscular Volume 93.4, Mean Corpuscular Hemoglobin 29.6, Mean Corpuscular Hemoglobin Concent 31.7, Mean Platelet Volume 9.8, Neutrophils (%) (Auto) 82.9, Lymphocytes (%) (Auto) 8.1, Monocytes (%) (Auto) 5.0, Eosinophils (%) (Auto) 3.8, Basophils (%) (Auto) 0.2, Neutrophils # (Auto) 5.03, Lymphocytes # (Auto) 0.49, Monocytes # (Auto) 0.30, Eosinophils # (Auto) 0.23, Basophils # (Auto) 0.01 05/26/17 17:07 Test 05/26/17 17:07 05/26/17 19:04 05/26/17 20:20 White Blood Count 6.06 K/uL (4.8-10.8) Red Blood Count 3.04 M/uL (4.7-6.1) Hemoglobin 9.0 g/dL (14.0-18.0) Hematocrit 28.4 % (42-52) Mean Corpuscular Volume 93.4 fL (80-100) Mean Corpuscular Hemoglobin 29.6 pg (25-34) Mean Corpuscular Hemoglobin Concent 31.7 g/dl (32-36) Platelet Count 167 K/uL (130-400) Mean Platelet Volume 9.8 fL (7.4-10.4) Neutrophils (%) (Auto) 82.9 % Lymphocytes (%) (Auto) 8.1 % Monocytes (%) (Auto) 5.0 % Eosinophils (%) (Auto) 3.8 % Basophils (%) (Auto) 0.2 % Neutrophils # (Auto) 5.03 K/uL (1.4-6.5) Lymphocytes # (Auto) 0.49 K/uL (1.2-3.4) Monocytes # (Auto) 0.30 K/uL (0.11-0.59) Eosinophils # (Auto) 0.23 K/uL (0-0.5) Basophils # (Auto) 0.01 K/uL (0-0.2) RDW Standard Deviation 57.4 fL (36.4-46.3) RDW Coefficient of Variation 16.9 % (11.5-14.5) Immature Granulocyte % (Auto) 0.0 % Immature Granulocyte # (Auto) 0.00 K/uL (0.00-0.02) Anion Gap 5.0 mmol/L (3-11) Est Creatinine Clear Calc Drug Dose 37.1 ml/min Estimated GFR () 34.3 Estimated GFR (Non- 29.6 BUN/Creatinine Ratio 34.0 (10-20) Calcium Level 8.9 mg/dl (8.5-10.1) Total Bilirubin 0.4 mg/dl (0.2-1) Direct Bilirubin 0.2 mg/dl (0-0.2) Aspartate Amino Transf (AST/SGOT) 13 U/L (15-37) Alanine Aminotransferase (ALT/SGPT) 21 U/L (12-78) Alkaline Phosphatase 77 U/L (45-117) Total Protein 6.8 gm/dl (6.4-8.2) Albumin 2.6 gm/dl (3.4-5.0) Lipase 186 U/L (73-393) Urine Color YELLOW Urine Appearance CLEAR (CLEAR) Urine pH 5.0 (4.5-7.5) Urine Specific [place] 1.017 (1.000-1.030) Urine Protein NEG (NEG) Urine Glucose (UA) NEG (NEG) Urine Ketones NEG (NEG) Urine Occult Blood NEG (NEG) Urine Nitrite NEG (NEG) Urine Bilirubin NEG (NEG) Urine Urobilinogen NEG (NEG) Urine Leukocyte Esterase NEG (NEG) Urine WBC (Auto) 0 /hpf (0-5) Urine RBC (Auto) 0-4 /hpf (0-4) Urine Hyaline Casts (Auto) 1-5 /lpf (0-5) Urine Epithelial Cells (Auto) 0-5 /lpf (0-5) Urine Bacteria (Auto) NEG (NEG) Digoxin Level 1.0 ng/ml (0.8-2.0) Laboratory results per my review. ECG Indication: other (leaking site of paracentesis) Rate (beats per minute): 64 Findings: nonspecific-ST abn, ST depression (Inferior and lateral) Comparison ECG Date: 02/14/16 Change: no significant change Change: Patient's EKG interpreted by me. ED Course ED COURSE: Vital signs were reviewed and showed normal vitals. The patients medical record was reviewed The above diagnostic studies were performed and reviewed. ED treatments and interventions as stated above. 1650: The patient was evaluated in room B10. A complete history and physical examination was performed. 1706: I discussed the patient's case with Dr. Daly - Radiology 1827: I reevaluated the patient, and the drainage has decreased significantly. 1908: I discussed the patient's case with Dr. Foley - Surgery, and he is going to come evaluate the patient. 1955: The patient's port was dressed, and Dr. Foley recommended to the patient that he be admitted. 1957: Upon reevaluation, the patient would like to go home and follow up with his PCP on Friday. 2115: I reevaluated the patient, and he was feeling well. I discussed my findings with the patient and he understands and agrees with the treatment plan. Based on the patients age, coexisting illnesses, exam and lab findings the decision to treat as an outpatient was made. The patient remained stable while under my care. The patient appeared well at the time of discharge. Medical Decision Differential diagnoses includes but is not limited to gastritis, peptic ulcer disease, GERD, gallbladder disease, pancreatitis, small bowel obstruction, acute coronary syndrome, pericarditis, ischemic bowel, irritable bowel disease, irritable bowel syndrome, appendicitis, diverticulitis, malignancy, hernia, urinary tract infection, torsion, perforation, trauma, infectious. Patient is a 76-year-old male who presents to ER for drainage from a paracentesis site. He notes he had this done about a week ago and within the past 24 hours he started leaking clear fluid. No surrounding erythema or induration. CBC shows a chronic anemia. BMP shows a potassium slightly elevated at 5.6. Creatinine is a long baseline at 2.1. Bilirubin all LFTs and lipase are normal. There was negative. Dig was negative. Abdomen was completely benign without signs of infection/peritonitis. Discussed with radiology who performed the procedure. They recommended continuing a dressing. Discussed with general surgery. They recommended an ostomy bag which was placed. General surgery did recommend observation but patient declined. Patient was updated at bedside and he will follow up with his PCP on Friday as he already has an appointment. EKG showed no significant peaked T waves. Did chest importance of having his BMP rechecked in 48 hours. He will continue his Bumex. Discussed with Pt concerning signs and symptoms to watch out for. Pt was instructed to follow up with their PCP and discussed with the patient their option to return to the ED at anytime for persistent or worsening symptoms. The appropriate anticipatory guidance and out-patient management, including indications for return to the emergency department, were explained at length to the patient and understood. Medication Reconcilliation Current Medication List: was personally reviewed by me Blood Pressure Screening Patient's blood pressure: Normal blood pressure Consults Time Called: 1702 Consulting Physician: Dr. Daly - Radiology Returned Call: 1706 I discussed the patient's case with Dr. Daly - Radiology. Additional Consults: Time Called: 1900 Consulted Physician: Dr. Foley - Surgery Returned Call: 1908 Additional Comments: I discussed the patient's case with Dr. Foley - Surgery, and he is going to come evaluate the patient. Impression Primary Impression: Ascites Additional Impressions: Anemia Hyperkalemia Chronic kidney disease Scribe Attestation The scribe's documentation has been prepared under my direction and personally reviewed by me in its entirety. I confirm that the note above accurately reflects all work, treatment, procedures, and medical decision making performed by me. Departure Information Dispostion Home / Self-Care Referrals Elba Johns M.D. (PCP) Forms HOME CARE DOCUMENTATION FORM, IMPORTANT VISIT INFORMATION, WORK / SCHOOL INSTRUCTIONS Patient Instructions Hyperkalemia Les, My [facility], Paracentesis Additional Instructions Please follow up with your primary care doctor with in the next 24 hours. Any worsening of your symptoms, please return to the ED immediately. This includes any fevers greater than 100.4, worsening pain, chest pain, shortness breath, persistent nausea, vomiting, unable to eat or drink, or any other concerning signs or symptoms from your standpoint. Please have your potassium rechecked within the next 48 hours as it was elevated. Please try to lay on your left side. You should have the paracentesis site reevaluated within the next 48 hours. Any surrounding redness, purulent discharge or change in the color the drainage he need to be evaluated ER immediately. Problem Qualifiers Primary Impression: Ascites Ascites type: other type Qualified Codes: R18.8 - Other ascites Additional Impressions: Anemia Anemia type: unspecified type Qualified Codes: D64.9 - Anemia, unspecified Chronic kidney disease Chronic kidney disease stage: unspecified stage Qualified Codes: N18.9 - Chronic kidney disease, unspecified
== END 2017-05-26 21:32 | disposition home or self-care (01) ==
LOC: C.EDB 16:02
DX: L76.82 Other postprocedural complications of skin and subcutaneous tissue (principal); R18.8 Other ascites; D64.9 Anemia, unspecified; E87.5 Hyperkalemia; N18.9 Chronic kidney disease, unspecified; Y84.4 Aspiration of fluid as the cause of abnormal reaction of the patient, or of later complication, without mention of misadventure at the time of the procedure; E11.40 Type 2 diabetes mellitus with diabetic neuropathy, unspecified; I25.5 Ischemic cardiomyopathy; I73.9 Peripheral vascular disease, unspecified; Z79.82 Long term (current) use of aspirin; Z87.891 Personal history of nicotine dependence; Z79.4 Long term (current) use of insulin

== ENCOUNTER → 2017-06-13 | Outpatient (CLI) | payer OTHER, MEDICARE ==
[~2017-06-13] MED LIST changes: -EPGI40M SC; +SULF800T23 PO
[2017-06-13 17:32] LABS: BASO % 0.4 %; BASO ABS # 0.02 K/uL (0-0.2); EOS % 4.6 %; EOS ABS # 0.22 K/uL (0-0.5); HEMATOCRIT 27.3 % (42-52); HEMOGLOBIN 8.7 g/dL (14.0-18.0); LYMPH % 9.8 %; LYMPH ABS # 0.47 K/uL (1.2-3.4); MEAN CELL VOLUME 92.5 fL (80-100); MEAN CORPUSCULAR HEMOGLOBIN 29.5 pg (25-34); MEAN CORPUSCULAR HGB CONC 31.9 g/dl (32-36); MEAN PLATELET VOLUME 9.4 fL (7.4-10.4); MONO % 5.8 %; MONO ABS # 0.28 K/uL (0.11-0.59); NEUT % 79.4 %; PLATELET COUNT 185 K/uL (130-400); RED CELL DISTRIBUTION WIDTH CV 16.8 % (11.5-14.5); RED CELL DISTRIBUTION WIDTH SD 56.1 fL (36.4-46.3); WHITE BLOOD COUNT 4.79 K/uL (4.8-10.8)
[2017-06-13 17:50] LABS: BLOOD UREA NITROGEN 55 mg/dl (7-18); CALCIUM 8.7 mg/dl (8.5-10.1); CARBON DIOXIDE 26 mmol/L (21-32); CREATININE 1.82 mg/dl (0.60-1.40); GLUCOSE 100 mg/dl (70-99); POTASSIUM 4.9 mmol/L (3.5-5.1); SODIUM 139 mmol/L (136-145)
== END | disposition home or self-care (01) ==
LOC: C.LABPVFM 13:07
PROVIDERS: ATTEND Physician Assistant
DX: I50.22 Chronic systolic (congestive) heart failure (principal)

== ENCOUNTER → 2017-07-03 | Outpatient (CLI) | payer OTHER, MEDICARE ==
[~2017-07-03] MED LIST changes: +ALL100 PO; +ASCO1CAP3 PO; +ASPI-435 PO; +BMX1 PO; +BUME2TAB3 PO; +CALC600T9 PO; +CARV12.52 PO; -CEPH500C2 PO; +CHOL2000 PO; +CRG625 PO; +FERR18TA2 PO; +LNX125 PO; +MULT-1093 PO; +PROB1TAB16 PO
[2017-07-03 17:18] LABS: PLATELET COUNT 192 K/uL (130-400)
[2017-07-03 17:34] LABS: INR 1.2 (0.9-1.1); PTT PATIENT 28.5 SECONDS (21.0-31.0)
[2017-07-03 17:36] LABS: BLOOD UREA NITROGEN 93 mg/dl (7-18); CREATININE 3.83 mg/dl (0.60-1.40)
== END | disposition home or self-care (01) ==
LOC: C.LABPVFM 14:55
PROVIDERS: ATTEND Physician Assistant
DX: N28.9 Disorder of kidney and ureter, unspecified (principal); R18.8 Other ascites

== ENCOUNTER 2017-07-05 12:23 | Inpatient (IN) | payer OTHER, MEDICARE ==
[~2017-07-05] VITALS: Ht 182.9 cm; Wt 93.6 kg
[~2017-07-05 12:23] MED LIST changes: -ALL100 PO; -ASCO1CAP3 PO; -ASPI-435 PO; -BMX1 PO; -BUME2TAB3 PO; -CALC600T9 PO; -CARV12.52 PO; -CHOL2000 PO; -CRG625 PO; -FERR18TA2 PO; -LNX125 PO; -MULT-1093 PO; -PROB1TAB16 PO; -SULF800T23 PO
--- NOTE | 2017-07-05 12:51 | EMERGENCY ROOM VISIT NOTE ---
History Report prepared by Sloane: Ben Fonseca Under the Supervision of: Dr. Aaron Vivas M.D. First contact with patient: 12:32 Chief Complaint: OTHER COMPLAINT Stated Complaint: LEAKING History of Present Illness The patient is a 76 year old male who presents to the Emergency Room with complaints of constant fluid leakage following a paracentesis done yesterday. The patient states that he had a paracentesis procedure done yesterday and had 10L of fluid removed. He notes that he was also given four bottles of albumin. He reports that since his procedure, he has had a "lot of draining" from the site and states that he has a colostomy bag in place to catch any discharge. The patient notes that he has drained another 3.5L of fluid into his ostomy bag since yesterday. He reports that he is also experiencing SOB and fatigue. He states that he has had 3 paracentesis procedures done in the past, but notes that he is feeling more fatigued than he has after any of his previous procedures. He reports that he had 11.5L removed during his last procedure. He denies any fever. The patient states that he also has a history of lymphedema. Source of History: patient Onset: yesterday Position: abdomen Symptom Intensity: 3.5L Timing: constant Associated Symptoms: + SOB, No fevers Note: The patient also complains of fatigue. Review of Systems See HPI for pertinent positives and negatives. A total of ten systems were reviewed and were otherwise negative. Past Medical & Surgical Medical Problems: (1) ALBAN (acute kidney injury) (2) Ascites (3) Diabetic peripheral neuropathy associated with type 2 diabetes mellitus (4) fluid leak s/p paracentesis (5) Ischemic cardiomyopathy (6) Loss of sensation (7) Lymphedema (8) Peripheral vascular disease (9) Prostate cancer Family History No pertinent family history stated. Social History Smoking Status: Former Smoker Drug Use: none Marital Status: Occupation Status: retired Current/Historical Medications Scheduled Allopurinol (Allopurinol), 100 MG PO DAILY Ascorbic Acid (Vitamin C), 500 MG PO DAILY Aspirin (Aspirin 81), 81 MG PO DAILY Bumetanide (Bumex), 2 MG PO DAILY Calcium Carbonate-Vitamin D (Calcium + D), 1 TAB PO DAILY Carvedilol (Coreg), 12.5 MG PO DAILY Cholecalciferol (Vitamin D3), 1 CAP PO DAILY Cyanocobalamin (Vitamin B-12), 1,000 MCG PO DAILY Digoxin (Digoxin), 0.125 MG PO QPM Enalapril (Vasotec), 20 MG PO DAILY Ferrous Fumarate (Iron), 65 MG PO DAILY Multiple Vitamins W/ Minerals (Centrum Silver 50+Men), 1 TAB PO DAILY Probiotic Product (Probiotic), 1 TAB PO DAILY Simvastatin (Zocor), 20 MG PO QPM Allergies Coded Allergies: No Known Allergies (Verified , 07/05/17) Physical Exam Vital Signs Date Time Temp Pulse Resp B/P (MAP) Pulse Ox O2 Delivery O2 Flow Rate FiO2 07/05/17 15:29 60 16 112/50 99 Room Air 07/05/17 13:56 63 16 105/50 96 Room Air 07/05/17 12:30 79 20 115/62 95 Room Air Physical Exam GENERAL: Awake, alert, fatigued appearing, in no distress HENT: Normocephalic, atraumatic. Oropharynx unremarkable. EYES: Normal conjunctiva. Sclera non-icteric. NECK: Supple. No nuchal rigidity. FROM. No JVD. RESPIRATORY: Clear to auscultation. Diminished breath sounds at bases. CARDIAC: Regular rate, normal rhythm. Extremities warm and well perfused. Pulses equal. ABDOMEN: Soft, non-distended. No tenderness to palpation. No rebound or guarding. No masses. Obese abdomen, right punctate paracentesis site without erythema or edema, active ascites draining into ostomy bag. RECTAL: Deferred. MUSCULOSKELETAL: Chest examination reveals no tenderness. The back is symmetrical on inspection without obvious abnormality. There is no CVA tenderness to palpation. No joint edema. LOWER EXTREMITIES: Calves are equal size bilaterally and non-tender. No discoloration. 2+ Lower extremity edema. NEURO: Normal sensorium. No sensory or motor deficits noted. SKIN: No rash or jaundice noted. Medical Decision & Procedures ER Provider Diagnostic Interpretation: Radiology results as stated below per my review and radiologist interpretation: CHEST ONE VIEW PORTABLE FINDINGS: Moderate stable cardiomegaly. Bipolar cardiac pacemaker/to for bladder. Lungs are clear. IMPRESSION: No acute process. Moderate stable cardiomegaly. The above report was generated using voice recognition software. It may contain grammatical, syntax or spelling errors. Electronically signed by: Juan C Vazquez M.D. 07/05/2017 1:24 PM Laboratory Results 07/05/17 13:23 Red Blood Count 3.42, Mean Corpuscular Volume 91.2, Mean Corpuscular Hemoglobin 28.4, Mean Corpuscular Hemoglobin Concent 31.1, Mean Platelet Volume 9.3, Neutrophils (%) (Auto) 83.3, Lymphocytes (%) (Auto) 9.0, Monocytes (%) (Auto) 4.6, Eosinophils (%) (Auto) 2.2, Basophils (%) (Auto) 0.7, Neutrophils # (Auto) 3.43, Lymphocytes # (Auto) 0.37, Monocytes # (Auto) 0.19, Eosinophils # (Auto) 0.09, Basophils # (Auto) 0.03 07/05/17 13:23 Test 07/05/17 13:23 White Blood Count 4.12 K/uL (4.8-10.8) Red Blood Count 3.42 M/uL (4.7-6.1) Hemoglobin 9.7 g/dL (14.0-18.0) Hematocrit 31.2 % (42-52) Mean Corpuscular Volume 91.2 fL (80-100) Mean Corpuscular Hemoglobin 28.4 pg (25-34) Mean Corpuscular Hemoglobin Concent 31.1 g/dl (32-36) Platelet Count 181 K/uL (130-400) Mean Platelet Volume 9.3 fL (7.4-10.4) Neutrophils (%) (Auto) 83.3 % Lymphocytes (%) (Auto) 9.0 % Monocytes (%) (Auto) 4.6 % Eosinophils (%) (Auto) 2.2 % Basophils (%) (Auto) 0.7 % Neutrophils # (Auto) 3.43 K/uL (1.4-6.5) Lymphocytes # (Auto) 0.37 K/uL (1.2-3.4) Monocytes # (Auto) 0.19 K/uL (0.11-0.59) Eosinophils # (Auto) 0.09 K/uL (0-0.5) Basophils # (Auto) 0.03 K/uL (0-0.2) RDW Standard Deviation 56.0 fL (36.4-46.3) RDW Coefficient of Variation 16.9 % (11.5-14.5) Immature Granulocyte % (Auto) 0.2 % Immature Granulocyte # (Auto) 0.01 K/uL (0.00-0.02) Prothrombin Time 12.7 SECONDS (9.0-12.0) Prothromb Time International Ratio 1.2 (0.9-1.1) Anion Gap 5.0 mmol/L (3-11) Estimated GFR () 19.1 Estimated GFR (Non- 16.5 BUN/Creatinine Ratio 26.9 (10-20) Calcium Level 8.5 mg/dl (8.5-10.1) Phosphorus Level 5.0 mg/dl (2.5-4.9) Magnesium Level 2.5 mg/dl (1.8-2.4) Total Bilirubin 0.3 mg/dl (0.2-1) Direct Bilirubin 0.1 mg/dl (0-0.2) Aspartate Amino Transf (AST/SGOT) 16 U/L (15-37) Alanine Aminotransferase (ALT/SGPT) 24 U/L (12-78) Alkaline Phosphatase 90 U/L (45-117) Troponin I 0.031 ng/ml (0-0.045) Pro-B-Type Natriuretic Peptide 15653 pg/ml (0-900) Total Protein 6.8 gm/dl (6.4-8.2) Albumin 2.7 gm/dl (3.4-5.0) Lipase 192 U/L (73-393) Laboratory results reviewed by me Medications Administered Medications (Trade) Dose Ordered Sig/Geovanny Route Start Time Stop Time Status Last Admin Dose Admin Sodium Chloride 1,000 ml @ 50 mls/hr Q20H IV 07/05/17 15:00 07/07/17 06:59 07/05/17 18:32 50 MLS/HR ECG Per My Interpretation Indication: weakness Rate (beats per minute): 61 Rhythm: other (AV dual paced) Findings: no acute ischemic change, no ectopy ED Course 1235: The patient was evaluated in room B9. A complete history and physical exam was performed. 1310: Discussed the patient's case [facility] 1412: I reevaluated and updated the patient. 1517: Upon reexamination, the patient was stable. I discussed the test results and treatment plan with him. Discussed the patient's case with Dr. Sun - Hospitalist, RADHA. The patient will be evaluated for further management. Medical Decision I reviewed the patient's past medical history, medications, and the nursing notes as described above. Differential Diagnoses Include: dehydration, electrolyte abnormalities, pulmonary edema, massive ascites, cirrhosis, renal failure, and hepatorenal syndrome. The patient is a 76 y/o gentleman with pmhx of CHF, CKD, stage III and cirrhosis (compensated) with recurrent ascites of unclear etiology presents to the emergency department with the complaint of persistent drainage of ascites fluid from paracentesis site after having large volume paracentesis yesterday where 10 L of ascites fluid were removed and was subsequently given albumin per HPI. The patient documented his drainage since yesterday which amounts to approximately 3500 mL. Of note, in addition the patient reports feeling increasing fatigue over the past week as well as shortness of breath even after his paracentesis yesterday. He also reports that he had outpatient lab tests done recently to evaluate his kidney function in the setting of being on antibiotics and received a phone call yesterday saying his creatinine had increased and was instructed to change his antibiotic. On arrival the patient is in no acute distress, afebrile stable vital signs. She has a punctate site in his right lower abdomen where his prior paracentesis was performed with an overlying ostomy bag collecting fluid. There is no erythema or warmth to the site. I did discuss the case with CHANA Guzman on-call, who agreed that for the patient's persistent ascites leakage alone there is no need for admission. Additionally, there is no indication to allow for persistent drainage of the ascites. Agrees that we may attempt closure with fibrin glue or stitch. Unable to obtain fibrin glue however drainage successfully resolved with Dermabond. New ostomy bag placed to collect any additional leakage should the Dermabond fail. Otherwise, the patient's labs do demonstrate a acute on chronic renal failure with a creatinine of 3.4, while improved from 2 days ago which was 3.8 outpatient. His overall renal function is significantly worse from the patient's creatinine of 1.8 in May. Elevated likely multifactorial and possibly related to his recent ABX course. Of note, at this time patient's BLE thoroughly and effectively wrapped by wound care clinic and so visualization of his cellulitis deferred. Given the patient acute on chronic RF and the possibility of continued leakage of the patient's ascites which if accumulates to greater than 5 L, would require albumin replacement reasonable to admit the patient for further management. Patient is agreeable with this plan. Case was discussed with RADHA Rey hospitalist, will admit the patient for further management. Blood Pressure Screening Patient's blood pressure: Normal blood pressure Blood pressure disposition: Did not require urgent referral Consults Time Called: 1428 Consulting Physician: Penelope Horvath Returned Call: 1518 I discussed the patient with Penelope Horvath. Additional Consults: Time Called: 1423 Consulted Physician: RADHA Lawson Returned Call: 1429 Additional Comments: I discussed the patient with RADHA Lawson. He will evaluate the patient for further treatment. Impression Primary Impression: Acute on chronic renal failure Additional Impression: Ascites Scribe Attestation The scribe's documentation has been prepared under my direction and personally reviewed by me in its entirety. I confirm that the note above accurately reflects all work, treatment, procedures, and medical decision making performed by me. Departure Information Dispostion Being Evaluated By Hospitalist Referrals Elba Johns M.D. (PCP) Patient Instructions [facility] Problem Qualifiers
--- NOTE | 2017-07-05 13:25 | DIAGNOSTIC IMAGING REPORT ---
CHEST ONE VIEW PORTABLE CLINICAL HISTORY: sob dyspnea COMPARISON STUDY: 05/07/2017 FINDINGS: Moderate stable cardiomegaly. Bipolar cardiac pacemaker/to for bladder. Lungs are clear. IMPRESSION: No acute process. Moderate stable cardiomegaly. The above report was generated using voice recognition software. It may contain grammatical, syntax or spelling errors. Electronically signed by: Juan C Vazquez M.D. 07/05/2017 1:24 PM Dictated Date/Time: 07/05/2017 1:18 PM
[2017-07-05 13:37] LABS: BASO % 0.7 %; BASO ABS # 0.03 K/uL (0-0.2); EOS % 2.2 %; EOS ABS # 0.09 K/uL (0-0.5); HEMATOCRIT 31.2 % (42-52); HEMOGLOBIN 9.7 g/dL (14.0-18.0); IG# 0.01 K/uL (0.00-0.02); LYMPH ABS # 0.37 K/uL (1.2-3.4); MEAN CELL VOLUME 91.2 fL (80-100); MEAN CORPUSCULAR HEMOGLOBIN 28.4 pg (25-34); MEAN CORPUSCULAR HGB CONC 31.1 g/dl (32-36); MEAN PLATELET VOLUME 9.3 fL (7.4-10.4); MONO % 4.6 %; MONO ABS # 0.19 K/uL (0.11-0.59); NEUT % 83.3 %; NEUT ABS # 3.43 K/uL (1.4-6.5); PLATELET COUNT 181 K/uL (130-400); RED CELL DISTRIBUTION WIDTH CV 16.9 % (11.5-14.5); WHITE BLOOD COUNT 4.12 K/uL (4.8-10.8)
[2017-07-05 13:41] LABS: INR 1.2 (0.9-1.1)
[2017-07-05 13:48] LABS: BLOOD UREA NITROGEN 93 mg/dl (7-18); CREATININE 3.45 mg/dl (0.60-1.40); GLUCOSE 83 mg/dl (70-99)
[2017-07-05 13:49] LABS: ALBUMIN 2.7 gm/dl (3.4-5.0); ALT/SGPT 24 U/L (12-78); AST/SGOT 16 U/L (15-37); CALCIUM 8.5 mg/dl (8.5-10.1); CARBON DIOXIDE 21 mmol/L (21-32); LIPASE 192 U/L (73-393); POTASSIUM 5.5 mmol/L (3.5-5.1); SODIUM 138 mmol/L (136-145)
[2017-07-05 14:02] LABS: ALKALINE PHOSPHATASE 90 U/L (45-117); TOTAL PROTEIN 6.8 gm/dl (6.4-8.2)
[2017-07-05] MEDS ORDERED: CARV12.52 PO (14:46)
[2017-07-05] MEDS ORDERED: SIMV20TA2 PO (14:46)
[2017-07-05] MEDS ORDERED: LNX125 PO (14:46)
[2017-07-05] MEDS ORDERED: CALC600T9 PO (14:46)
[2017-07-05] MEDS ORDERED: ENAL10TA88 PO (14:46)
[2017-07-05] MEDS ORDERED: FERR18TA2 PO (14:46)
[2017-07-05] MEDS ORDERED: CHOL2000 PO (14:46)
[2017-07-05] MEDS ORDERED: ASPI-435 PO (14:46)
[2017-07-05] MEDS ORDERED: BUME2TAB3 PO (14:46)
[2017-07-05] MEDS ORDERED: ALL100 PO (14:46)
[2017-07-05] MEDS ORDERED: ASCO1CAP3 PO (14:46)
[2017-07-05] MEDS ORDERED: PROB1TAB16 PO (14:46)
[2017-07-05] MEDS ORDERED: MULT-1093 PO (14:46)
[2017-07-05] MEDS ORDERED: CYAN10005 PO (14:46)
[2017-07-05] MEDS ORDERED: ONDANSETRON INJ 2 MG/ML 2 ML VIAL IV PRN (15:00)
[2017-07-05] MEDS ORDERED: POLYETHYLENE (MIRALAX) 17 GM PACK PO PRN (15:00)
[2017-07-05] MEDS ORDERED: ALUMINUM/MAGNESIUM/SIMETH (MAALOX MAX) 30 ML UDC PO PRN (15:00)
[2017-07-05] MEDS ORDERED: MAGNESIUM HYDROXIDE SUSP 30 ML UDC PO PRN (15:00)
[2017-07-05] MEDS ORDERED: NITROGLYCERIN 0.4 MG SL PER TAB CHARGE SL PRN (15:00)
[2017-07-05] MEDS ORDERED: HydrALAZINE HCL 20 MG/ML VIAL IV. PRN (15:00)
[2017-07-05] MEDS ORDERED: ACETAMINOPHEN 325 MG TAB PO PRN (15:00)
--- NOTE | 2017-07-05 15:41 | History and Physical ---
History & Physical Date & Time of Service: Jul 05, 2017 at 15:09 Chief Complaint: Leaking Primary Care Physician: Elba Johns M.D. 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 Patient has had 3 other paracentesis in the past, which has resulted in leakage. Per patient, this is the worst is have ever been. They drained 10L yesterday. He has ostomy bag over site to catch drainage- states he has drained another 4L. Unknown cause of ascites. He follows w/ wound care for bilateral lower extremities- notes he was on Keflex then Bactrim recently but was told to discontinue medications due to declining kidney function. +edema- at baseline. +SOB w/ exertion. +generalized weakness/ fatigue. Patient denies any fever, chills, sweats, lightheadedness, dizziness, vision changes, CP, palpitations, wheezing, cough, abdominal pain, nausea, vomiting, diarrhea, urinary symptoms, melena, numbness/tingling, muscle/joint pain, anxiety/depression, active bleeding, or new skin discoloration/changes. 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%) s/p biventricular ICD implantation chronic systolic CHF 2-vessel CAD CKD stage III T2DM HTN HLD gout lymphedema chronic anemia ascites possibly related to cirrhosis and/or severe cardiomyopathy aortic regurgitation chronic venous insufficiency polymyalgia rheumatica secondary hyperparathyroidism vitamin D deficiency Surgical History: s/p paracentesis x4 ICD pacer placement heart cath and stenting partial colectomy prostate procedure Family History DM Social History Smoking Status: Former Smoker Alcohol Use: none Drug Use: none Marital Status: Occupational Status: retired Immunizations History of Influenza Vaccine: Yes Influenza Vaccine Date: Feb 10, 2012 History of Tetanus Vaccine?: Yes History of Pneumococcal: due now History of Hepatitis B Vaccine: No Allergies Coded Allergies: No Known Allergies (Verified , 07/05/17) Home Medications Scheduled Allopurinol (Allopurinol), 100 MG PO DAILY Ascorbic Acid (Vitamin C), 500 MG PO DAILY Aspirin (Aspirin 81), 81 MG PO DAILY Bumetanide (Bumex), 2 MG PO DAILY Calcium Carbonate-Vitamin D (Calcium + D), 1 TAB PO DAILY Carvedilol (Coreg), 12.5 MG PO DAILY Cholecalciferol (Vitamin D3), 1 CAP PO DAILY Cyanocobalamin (Vitamin B-12), 1,000 MCG PO DAILY Digoxin (Digoxin), 0.125 MG PO QPM Enalapril (Vasotec), 20 MG PO DAILY Ferrous Fumarate (Iron), 65 MG PO DAILY Multiple Vitamins W/ Minerals (Centrum Silver 50+Men), 1 TAB PO DAILY Probiotic Product (Probiotic), 1 TAB PO DAILY Simvastatin (Zocor), 20 MG PO QPM Physical Exam Vital Signs Date Time Temp Pulse Resp B/P (MAP) Pulse Ox O2 Delivery O2 Flow Rate FiO2 07/05/17 13:56 63 16 105/50 96 Room Air 07/05/17 12:30 79 20 115/62 95 Room Air General Appearance: no apparent distress, + obese Head: normocephalic, atraumatic Eyes: normal inspection, PERRL ENT: hearing grossly normal Neck: supple, no JVD Respiratory/Chest: lungs clear, no respiratory distress, no accessory muscle use Cardiovascular: regular rate, rhythm, + systolic murmur Abdomen/GI: normal bowel sounds, non tender, soft, + pertinent finding (+ ostomy bag over paracentesis site w/ serous drainage noted ) Back: normal inspection Extremities/Musculoskelatal: no calf tenderness, + swelling (LUE- +1-2 pitting edema (chronic per patient)), + pertinent finding (+swelling of bilateral lower extremities- in dressing/TEDs, hard to assess swelling ) Neurologic/Psych: alert, normal mood/affect, oriented x 3 Skin: normal color, warm/dry, no rash Diagnostics Laboratory Results Results Past 24 Hours Test 07/05/17 13:23 Range/Units White Blood Count 4.12 4.8-10.8 K/uL Red Blood Count 3.42 4.7-6.1 M/uL Hemoglobin 9.7 14.0-18.0 g/dL Hematocrit 31.2 42-52 % Mean Corpuscular Volume 91.2 80-100 fL Mean Corpuscular Hemoglobin 28.4 25-34 pg Mean Corpuscular Hemoglobin Concent 31.1 32-36 g/dl Platelet Count 181 130-400 K/uL Mean Platelet Volume 9.3 7.4-10.4 fL Neutrophils (%) (Auto) 83.3 % Lymphocytes (%) (Auto) 9.0 % Monocytes (%) (Auto) 4.6 % Eosinophils (%) (Auto) 2.2 % Basophils (%) (Auto) 0.7 % Neutrophils # (Auto) 3.43 1.4-6.5 K/uL Lymphocytes # (Auto) 0.37 1.2-3.4 K/uL Monocytes # (Auto) 0.19 0.11-0.59 K/uL Eosinophils # (Auto) 0.09 0-0.5 K/uL Basophils # (Auto) 0.03 0-0.2 K/uL RDW Standard Deviation 56.0 36.4-46.3 fL RDW Coefficient of Variation 16.9 11.5-14.5 % Immature Granulocyte % (Auto) 0.2 % Immature Granulocyte # (Auto) 0.01 0.00-0.02 K/uL Prothrombin Time 12.7 9.0-12.0 SECONDS Prothromb Time International Ratio 1.2 0.9-1.1 Sodium Level 138 136-145 mmol/L Potassium Level 5.5 3.5-5.1 mmol/L Chloride Level 112 98-107 mmol/L Carbon Dioxide Level 21 21-32 mmol/L Anion Gap 5.0 3-11 mmol/L Blood Urea Nitrogen 93 7-18 mg/dl Creatinine 3.45 0.60-1.40 mg/dl Estimated GFR () 19.1 Estimated GFR (Non- 16.5 BUN/Creatinine Ratio 26.9 10-20 Random Glucose 83 70-99 mg/dl Calcium Level 8.5 8.5-10.1 mg/dl Phosphorus Level 5.0 2.5-4.9 mg/dl Magnesium Level 2.5 1.8-2.4 mg/dl Total Bilirubin 0.3 0.2-1 mg/dl Direct Bilirubin 0.1 0-0.2 mg/dl Aspartate Amino Transf (AST/SGOT) 16 15-37 U/L Alanine Aminotransferase (ALT/SGPT) 24 12-78 U/L Alkaline Phosphatase 90 45-117 U/L Troponin I 0.031 0-0.045 ng/ml Pro-B-Type Natriuretic Peptide 03759 0-900 pg/ml Total Protein 6.8 6.4-8.2 gm/dl Albumin 2.7 3.4-5.0 gm/dl Lipase 192 73-393 U/L Diagnostic Radiology CHEST ONE VIEW PORTABLE CLINICAL HISTORY: sob dyspnea COMPARISON STUDY: 05/07/2017 FINDINGS: Moderate stable cardiomegaly. Bipolar cardiac pacemaker/to for bladder. Lungs are clear. IMPRESSION: No acute process. Moderate stable cardiomegaly. The above report was generated using voice recognition software. It may contain grammatical, syntax or spelling errors. Electronically signed by: Juan C Vazquez M.D. 07/05/2017 1:24 PM Dictated Date/Time: 07/05/2017 1:18 PM The status of this report is Signed. Draft = Not yet reviewed or approved by Radiologist. Signed = Reviewed and approved by Radiologist. EKG AURELIO RYDER ID:[id number] 05-JUL-2017 13:07:04 [facility] AV dual-paced rhythm Abnormal ECG When compared with ECG of 26-MAY-2017 18:40, Vent. rate has decreased BY 3 BPM 25mm/s 10mm/mV 150Hz 8.0 SP2 12SL 241 SHAMA: 10 Referred by: Unconfirmed Vent. 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 Leaking s/p paracentesis: - Albumin at baseline- 2.7 - Consult GI, appreciate recommendations Severe idiopathy cardiomyopathy (EF 20-25%), s/p biventricular ICD implantation , chronic systolic CHF, 2-vessel CAD s/p cardiac stenting- follows w/ Dr. Chambers: - Hold Enalapril 20 mg daily due to ALBAN and Bumex due to IVF treatment - Monitor I&Os and daily weights closely - Continue Zocor 20 mg HS, ASA daily, Coreg 12.5 mg daily, Digoxin 0.125 mg daily - IV Hydralazine PRN ALBAN on CKD stage III- baseline extrusion former around 2.0- extrusion former 3.45 today: - ?due to dehydration for significant paracentesis output- will gently hydrate IV NSS @ 50 ml/hr x2 bags - Avoid nephrotoxic agents and renally dose medications as appropriate - Follow PRP Hyperkalemia, likely secondary to ALBAN: - Monitor on tele - Treat ALBAN and follow K level T2DM: - Continue Lantus 14 u HS - BSG ACHS and ISS Chronic anemia, ?secondary to CKD- baseline hgb 9.0- STABLE: - Continue iron supplement - Follow CBC Chronic venous insufficiency- follows w/ wound care: Wound care consulted, appreciate recommendations Gout: Hold Allopurinol due to ALBAN DVT prophylaxis: Heparin SQ BID Code status: LEVEL I, FULL- no prolonged measures Dispo: From home- PT/OT and CM consulted i personally examined pt and verified all gaytan points w Naty Longo PAC feels like this is the worst post paracentesis leak yet vitals noted nad chronic edema breathing unlabored post paracentesis leak - GI eval, supportive care, last time failed intervention measures but stopped spontaneously - fluid support, possibly more albumin elevated creatinine - likely mostly from fluid losses from above - IVF (but gently given systolic cardiomyopathy - can increase if not responding well enough but want to avoid creating an active CHF type picture) otherwise as above Resuscitation Status LEVEL I, FULL VTE Prophylaxis Will order VTE Prophylaxis: Yes
[2017-07-05 16:00] VITALS: O2SAT 99; BMI 30.3
[2017-07-05 17:10] VITALS: BP 119/39; PULSE 86; TEMP 35.9; O2SAT 96
[2017-07-05] MEDS ORDERED: DEXTROSE 50% 50 ML SYR IV PRN (17:45)
[2017-07-05] MEDS ORDERED: GLUCOSE 40% GEL 15 GM TUBE PO PRN (17:45)
[2017-07-05] MEDS ORDERED: GLUCAGON FOR INJ 1 MG VIAL SQ PRN (17:45)
[2017-07-05] MEDS: SODIUM CHLORIDE 0.9% 1000ML 1,000 ML IV SCH (18:32)
[2017-07-05] MEDS: DIGOXIN 0.125 MG TAB PO SCH (18:32)
--- NOTE | 2017-07-05 18:59 | GASTROINTESTINAL CONSULTATION ---
DATE OF CONSULTATION: 07/05/2017 CHIEF COMPLAINT: Leakage from the paracentesis site. HISTORY OF PRESENT ILLNESS: The patient is a 76-year-old male who presented to the Emergency Room this afternoon for evaluation of leakage from the paracentesis site. The patient is followed by Dr. Chacon and Ms. Indu Marroquin of the [facility], for recurrent ascites which is likely related to his history of heart failure. The patient had approximately 10 liters drained and began to have spontaneous drainage last evening from the paracentesis site. Upon arrival to the Emergency Room I was called and I suggested to the Emergency Room provider that Dermabond be placed on the wound. Of note, leakage from the site has discontinued. PAST MEDICAL HISTORY: 1. Cardiomyopathy with a 20% ejection fraction. 2. Biventricular ICD. 3. Congestive heart failure. 4. Type 2 diabetes. 5. Hypertension. 6. Hypercholesterolemia. 7. Gout. 8. Lymphedema. 9. Anemia. 10. Aortic regurgitation. 11. Chronic renal insufficiency. 12. Polymyalgia rheumatica. 13. Hyperparathyroidism. 14. Vitamin D deficiency. PAST SURGICAL HISTORY: 1. ICD placement. 2. Cardiac catheterization. 3. Partial colectomy, unclear of type. 4. Prostate resection. 5. Mantle cell resection with radiation therapy to his chest. FAMILY HISTORY: Diabetes. SOCIAL HISTORY: Prior smoker. The patient denies drinking alcohol. The patient is and lives by himself. ALLERGIES: No drug allergies. OUTPATIENT MEDICATIONS: 1. Allopurinol 100 mg per day. 2. Vitamin C. 3. Aspirin 81 mg per day. 4. Bumex 2 mg daily. 5. Calcium plus vitamin D. 6. Coreg 12.5 mg daily. 7. Vitamin D3. 8. Vitamin B12. 9. Digoxin 0.125 mg daily. 10. Vasotec 20 mg daily. 11. Iron sulfate. 12. Probiotic. 13. Zocor 20 mg at bedtime. REVIEW OF SYSTEMS: GENERAL: No fevers, no chills. CARDIAC: No chest pain, no palpitations. PULMONARY: No shortness of breath, no cough. GASTROINTESTINAL: Please see history of present illness. GENITOURINARY: No new dysuria noted by patient. MUSCULOSKELETAL: No joint pains or muscle pains. DERMATOLOGIC: No rashes. The patient does have lymphedema on the right hand side. PSYCHIATRIC: No depression, no suicidal ideation. HEENT: No difficulty swallowing. No pain with swallowing. RHEUMATOLOGIC: No new joint pains or muscle pains. PHYSICAL EXAMINATION: VITAL SIGNS: Temperature is 35.9, pulse 86, respiratory rate 16, blood pressure 119/39, pulse ox 96%. DERMATOLOGIC: No scleral icterus noted. NECK: No JVD noted. LUNGS: Poor airway sounds throughout all lung grace. CARDIAC: Regular with a systolic murmur. ABDOMEN: Soft, mild protuberance noted. Ostomy bag without leakage from his paracentesis site today. EXTREMITIES: Bilateral lower extremity 1 to 2+, edema noted of the right upper extremity. NEUROLOGIC: Cranial nerves grossly intact. Motor grossly intact. SKIN: Multiple small petechiae noted in the legs and arms. LABORATORIES: White blood cell count is 4.12, hemoglobin 9.7, hematocrit is 31.2, platelet count is 181. PT is 12.7, INR 1.2. Sodium 138, potassium is 5.5, BUN 93, creatinine is 3.45, calcium 8.5, phosphorus is 5.0, magnesium is 2.5, AST is 16, ALT is 24, alkaline phosphatase 90. ProBNP 20,000. IMPRESSION: A 76-year-old male admitted for leakage from the paracentesis site. It appears that the leakage has sealed with the use of Dermabond. I would suggest that the paracentesis site be kept in an up position overnight to help promote healing of the wound. It is apparent that his ascites is likely related to his congestive heart failure in addition to his renal failure. Should there be questions with regard to management, it may be best to obtain a cardiac evaluation. RECOMMENDATIONS: 1. Keep the right side up overnight. 2. Consider cardiac evaluation. 3. Dr. Chacon to resume coverage on Friday. Please call with any questions or concerns over the remainder of the weekend.
[2017-07-05 19:36] VITALS: BP 112/48; PULSE 63; TEMP 36.4; O2SAT 98
[2017-07-05] MEDS: SIMVASTATIN 20 MG TAB PO SCH (20:40)
[2017-07-05] MEDS: INSULIN ASPART 100 UNITS/ML 3 ML PEN SC SCH (20:40)
[2017-07-05] MEDS: HEPARIN SOD 5000 UNIT/0.5 ML CARP SQ SCH (20:42)
[2017-07-05] MEDS ORDERED: INSULIN GLARGINE SOLOSTAR 100 UNITS/ML 3 ML PEN SC SCH (21:00)
[2017-07-05 23:44] VITALS: BP 103/47; PULSE 60; TEMP 36.8; O2SAT 95
[2017-07-06 03:29] VITALS: BP 105/48; PULSE 67; TEMP 36.6; O2SAT 96
[2017-07-06 06:22] LABS: HEMATOCRIT 27.2 % (42-52); HEMOGLOBIN 8.8 g/dL (14.0-18.0); MEAN CORPUSCULAR HEMOGLOBIN 29.4 pg (25-34); MEAN CORPUSCULAR HGB CONC 32.4 g/dl (32-36); MEAN PLATELET VOLUME 9.4 fL (7.4-10.4); PLATELET COUNT 187 K/uL (130-400); RED CELL DISTRIBUTION WIDTH CV 16.9 % (11.5-14.5); RED CELL DISTRIBUTION WIDTH SD 56.1 fL (36.4-46.3); WHITE BLOOD COUNT 4.07 K/uL (4.8-10.8)
[2017-07-06 06:51] LABS: CALCIUM 8.2 mg/dl (8.5-10.1); CREATININE 3.13 mg/dl (0.60-1.40); POTASSIUM 5.3 mmol/L (3.5-5.1)
[2017-07-06] MEDS: INSULIN ASPART 100 UNITS/ML 3 ML PEN SC SCH ×4 (07:00→20:39)
[2017-07-06] MEDS: GLUCOSE 10 TABS/TUBE PO PRN (07:16)
[2017-07-06 08:27] VITALS: BP 155/76; PULSE 76; TEMP 36.9; O2SAT 99
[2017-07-06] MEDS: CARVEDILOL 12.5 MG TAB PO SCH (08:40)
[2017-07-06] MEDS: CYANOCOBALAMIN 500 MCG TAB (VIT B-12) PO SCH (08:40)
[2017-07-06] MEDS: ASPIRIN 81 MG ECTAB PO SCH (08:40)
[2017-07-06] MEDS: LACTOBACILLUS ACIDOPHILUS (FLORANEX) TAB PO SCH (08:40)
[2017-07-06] MEDS: CEROVITE ADV FORMULA TAB PO SCH (08:40)
[2017-07-06] MEDS: FERROUS FUMARATE CONTR REL CAP 65 MG CAPCR PO SCH (08:40)
[2017-07-06] MEDS: HEPARIN SOD 5000 UNIT/0.5 ML CARP SQ SCH ×2 (08:51→20:42)
--- NOTE | 2017-07-06 10:40 | Hospitalist Progress Note ---
Hospitalist Progress Note Date of Service Jul 06, 2017. Subjective Pt evaluation today including: conversation w/ patient, conversation w/ family (brother at bedside ), physical exam, lab review, review of inpatient medication list Voiding: no voiding problems Patient resting in bed. Feeling well this AM. Paracentesis site has quit draining since admission. Eating and drinking OK. Hypoglycemic episode this AM. Patient confirmed he takes 14 u HS, will decrease to 10 u tonight. No SOB at rest. Has dyspnea on exertion. Has not been up and walking. PT ordered. Patient denies any fever, chills, sweats, lightheadedness, dizziness, vision changes, CP, palpitations, edema, SOB, wheezing, cough, abdominal pain, nausea, vomiting, diarrhea, urinary symptoms, melena, numbness/tingling, weakness, muscle/joint pain, anxiety/depression, active bleeding, or new skin discoloration/changes. Medications Current Inpatient Medications Medications (Trade) Dose Ordered Sig/Geovanny Route Start Time Stop Time Status Last Admin Dose Admin Heparin Sodium (Porcine) (Heparin Sq 5000 Unit/0.5ml) 5,000 unit Q12 SQ 07/05/17 21:00 08/04/17 20:59 07/06/17 08:51 5,000 UNIT Acetaminophen (Tylenol Tab) 650 mg Q4H PRN PO 07/05/17 15:00 08/04/17 14:59 Al Hydrox/Mg Hydrox/Simethicone (Maalox Max Susp) 15 ml Q4H PRN PO 07/05/17 15:00 08/04/17 14:59 Magnesium Hydroxide (Milk Of Magnesia Susp) 30 ml Q12H PRN PO 07/05/17 15:00 08/04/17 14:59 Ondansetron HCl (Zofran Inj) 4 mg Q6H PRN IV 07/05/17 15:00 08/04/17 14:59 Nitroglycerin (Nitrostat Tab) 0.4 mg UD PRN SL 07/05/17 15:00 08/04/17 14:59 Polyethylene (Miralax Powder Packet) 17 gm DAILY PRN PO 07/05/17 15:00 08/04/17 14:59 Aspirin (Ecotrin Tab) 81 mg DAILY PO 07/06/17 09:00 08/05/17 08:59 07/06/17 08:40 81 MG Carvedilol (Coreg Tab) 12.5 mg DAILY PO 07/06/17 09:00 08/05/17 08:59 07/06/17 08:40 12.5 MG Cyanocobalamin (Vitamin B-12 Tab) 1,000 mcg DAILY PO 07/06/17 09:00 08/05/17 08:59 07/06/17 08:40 1,000 MCG Digoxin (Lanoxin Tab) 0.125 mg DAILY@1600 PO 07/05/17 18:00 08/04/17 17:59 07/05/17 18:32 0.125 MG Multivitamins/ Minerals (Multivitamin W/ Minerals Tab) 1 tab DAILY PO 07/06/17 09:00 08/05/17 08:59 07/06/17 08:40 1 TAB Simvastatin (Zocor Tab) 20 mg QPM PO 07/05/17 21:00 08/04/17 20:59 07/05/17 20:40 20 MG Ferrous Fumarate (Selene-Sequels Contr Rel Cap) 65 mg DAILY PO 07/06/17 09:00 08/05/17 08:59 07/06/17 08:40 65 MG Lactobacillus Acidophilus (Floranex Tab) 4 tab DAILY PO 07/06/17 09:00 08/05/17 08:59 07/06/17 08:40 4 TAB Hydralazine HCl (HydrALAZINE INJ) 10 mg Q6H PRN IV. 07/05/17 15:00 08/04/17 14:59 Insulin Glargine (Lantus Solostar Pen) 14 units HS SC 07/05/17 21:00 08/04/17 20:59 07/05/17 20:43 14 UNITS Insulin Aspart (novoLOG ASPART) SLIDING SCALE G... ACHS SC 07/05/17 21:00 08/04/17 20:59 Sodium Chloride 1,000 ml @ 50 mls/hr Q20H IV 07/05/17 15:00 07/07/17 06:59 07/05/17 18:32 50 MLS/HR Glucose (Glucose 40% Gel) 15-30 GRAMS 15 GRAMS... UD PRN PO 07/05/17 17:45 08/04/17 17:44 Glucose (Glucose Chew Tab) 4-8 Tablets 4 Tabl... UD PRN PO 07/05/17 17:45 08/04/17 17:44 07/06/17 07:16 8 TABS Dextrose (Dextrose 50% 50ML Syringe) 25-50ML OF 50% DW IV FOR... UD PRN IV 07/05/17 17:45 08/04/17 17:44 Glucagon (Glucagon Inj) 1 mg UD PRN SQ 07/05/17 17:45 08/04/17 17:44 Objective Vital Signs Date Time Temp Pulse Resp B/P (MAP) Pulse Ox O2 Delivery O2 Flow Rate FiO2 07/06/17 08:27 36.9 76 18 155/76 (102) 99 07/06/17 08:00 Room Air 07/06/17 04:00 Room Air 07/06/17 03:29 36.6 67 18 105/48 (67) 96 Room Air 07/05/17 23:59 Room Air 07/05/17 23:44 36.8 60 17 103/47 (65) 95 Room Air 07/05/17 20:00 Room Air 07/05/17 19:36 36.4 63 18 112/48 (69) 98 Room Air 07/05/17 18:32 62 07/05/17 17:10 35.9 86 16 119/39 (65) 96 Room Air 07/05/17 16:55 36.8 67 20 124/55 95 Room Air 07/05/17 16:54 07/05/17 16:00 99 Room Air 07/05/17 15:29 60 16 112/50 99 Room Air 07/05/17 13:56 63 16 105/50 96 Room Air 07/05/17 12:30 79 20 115/62 95 Room Air Physical Exam General Appearance: no apparent distress Eyes: normal inspection, PERRL ENT: hearing grossly normal Neck: supple Respiratory/Chest: lungs clear, no respiratory distress, no accessory muscle use Cardiovascular: regular rate, rhythm, + systolic murmur Abdomen: normal bowel sounds, non tender, soft, + pertinent finding (+ostomy bag over paracentesis site w/ no drainage noted ) Extremities: no calf tenderness, + swelling (+1-2 pitting edema of RUE- chronic ), + pertinent finding (bilateral lower extremities in dressings/TEDs) Neurologic/Psychiatric: alert, normal mood/affect, oriented x 3 Skin: normal color, warm/dry, no rash Laboratory Results Last 24 Hours Test 07/05/17 13:23 07/05/17 20:10 07/06/17 05:50 07/06/17 07:11 White Blood Count 4.12 K/uL 4.07 K/uL Red Blood Count 3.42 M/uL 2.99 M/uL Hemoglobin 9.7 g/dL 8.8 g/dL Hematocrit 31.2 % 27.2 % Mean Corpuscular Volume 91.2 fL 91.0 fL Mean Corpuscular Hemoglobin 28.4 pg 29.4 pg Mean Corpuscular Hemoglobin Concent 31.1 g/dl 32.4 g/dl Platelet Count 181 K/uL 187 K/uL Mean Platelet Volume 9.3 fL 9.4 fL Neutrophils (%) (Auto) 83.3 % Lymphocytes (%) (Auto) 9.0 % Monocytes (%) (Auto) 4.6 % Eosinophils (%) (Auto) 2.2 % Basophils (%) (Auto) 0.7 % Neutrophils # (Auto) 3.43 K/uL Lymphocytes # (Auto) 0.37 K/uL Monocytes # (Auto) 0.19 K/uL Eosinophils # (Auto) 0.09 K/uL Basophils # (Auto) 0.03 K/uL RDW Standard Deviation 56.0 fL 56.1 fL RDW Coefficient of Variation 16.9 % 16.9 % Immature Granulocyte % (Auto) 0.2 % Immature Granulocyte # (Auto) 0.01 K/uL Prothrombin Time 12.7 SECONDS Prothromb Time International Ratio 1.2 Sodium Level 138 mmol/L 139 mmol/L Potassium Level 5.5 mmol/L 5.3 mmol/L Chloride Level 112 mmol/L 114 mmol/L Carbon Dioxide Level 21 mmol/L 18 mmol/L Anion Gap 5.0 mmol/L 7.0 mmol/L Blood Urea Nitrogen 93 mg/dl 85 mg/dl Creatinine 3.45 mg/dl 3.13 mg/dl Estimated GFR () 19.1 21.5 Estimated GFR (Non- 16.5 18.6 BUN/Creatinine Ratio 26.9 27.2 Random Glucose 83 mg/dl 45 mg/dl Calcium Level 8.5 mg/dl 8.2 mg/dl Phosphorus Level 5.0 mg/dl Magnesium Level 2.5 mg/dl Total Bilirubin 0.3 mg/dl Direct Bilirubin 0.1 mg/dl Aspartate Amino Transf (AST/SGOT) 16 U/L Alanine Aminotransferase (ALT/SGPT) 24 U/L Alkaline Phosphatase 90 U/L Troponin I 0.031 ng/ml Pro-B-Type Natriuretic Peptide 54788 pg/ml Total Protein 6.8 gm/dl Albumin 2.7 gm/dl Lipase 192 U/L Bedside Glucose 123 mg/dl 44 mg/dl Est Creatinine Clear Calc Drug Dose 25.5 ml/min Test 07/06/17 07:38 Bedside Glucose 72 mg/dl Assessment and Plan Patient is a pleasant 76 y/o male, with PMHx of 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 Chambers: - Hold Enalapril 20 mg daily due to ALBAN and Bumex due to IVF treatment - Monitor I&Os and daily weights closely - Continue Zocor 20 mg HS, ASA daily, Coreg 12.5 mg daily, Digoxin 0.125 mg daily - IV Hydralazine PRN ALBAN on CKD stage III- baseline gambling supervisor around 2.0- gambling supervisor 3.13 today- IMPROVING: - ?due to dehydration for significant paracentesis output- continue gentle hydration w/ IV NSS @ 50 ml/hr x2 bags - Avoid nephrotoxic agents and renally dose medications as appropriate - Follow PRP Hyperkalemia, likely secondary to ALBAN- IMPROVING: - Monitor on tele - Treat ALBAN and follow K level T2DM: - Continue Lantus 14 u HS- hypoglycemic episode this AM, will decrease to 10 u tonight - BSG ACHS and ISS Chronic anemia, ?secondary to CKD- baseline hgb 9.0- STABLE: - Continue iron supplement - Follow CBC Chronic venous insufficiency, lymphedema- follows w/ wound care: Wound care consulted, appreciate recommendations Gout: Hold Allopurinol due to ALBAN DVT prophylaxis: Heparin SQ BID Code status: LEVEL I, FULL- no prolonged measures Dispo: From home- PT/OT and CM consulted- hopeful discharge in the next 1-2 days
[2017-07-06] MEDS: SODIUM CHLORIDE 0.9% 1000ML 1,000 ML IV SCH (11:48)
[2017-07-06 15:18] VITALS: BP 111/49; PULSE 64; TEMP 36.4; O2SAT 94
[2017-07-06] MEDS: DIGOXIN 0.125 MG TAB PO SCH (17:08)
[2017-07-06 19:42] VITALS: BP 109/40; PULSE 63; TEMP 36.5; O2SAT 100
[2017-07-06] MEDS: INSULIN GLARGINE SOLOSTAR 100 UNITS/ML 3 ML PEN SC SCH (20:42)
[2017-07-06] MEDS: SIMVASTATIN 20 MG TAB PO SCH (20:45)
[2017-07-06 23:43] VITALS: BP 102/53; PULSE 61; TEMP 36.8; O2SAT 99
[2017-07-07] VITALS (8 sets, daily range): BP systolic 105–119; BP diastolic 47–66; PULSE 59–73; TEMP 36.5–36.8; O2SAT 96–100
[2017-07-07 05:46] LABS: HEMATOCRIT 28.4 % (42-52); HEMOGLOBIN 8.9 g/dL (14.0-18.0); MEAN CELL VOLUME 91.6 fL (80-100); MEAN CORPUSCULAR HEMOGLOBIN 28.7 pg (25-34); MEAN CORPUSCULAR HGB CONC 31.3 g/dl (32-36); MEAN PLATELET VOLUME 8.5 fL (7.4-10.4); PLATELET COUNT 150 K/uL (130-400); RED CELL DISTRIBUTION WIDTH SD 56.2 fL (36.4-46.3); WHITE BLOOD COUNT 3.68 K/uL (4.8-10.8)
[2017-07-07 06:05] LABS: CALCIUM 7.9 mg/dl (8.5-10.1); CREATININE 2.73 mg/dl (0.60-1.40); POTASSIUM 5.6 mmol/L (3.5-5.1)
[2017-07-07] MEDS: FERROUS FUMARATE CONTR REL CAP 65 MG CAPCR PO SCH (08:31)
[2017-07-07] MEDS: CEROVITE ADV FORMULA TAB PO SCH (08:31)
[2017-07-07] MEDS: CYANOCOBALAMIN 500 MCG TAB (VIT B-12) PO SCH (08:31)
[2017-07-07] MEDS: ASPIRIN 81 MG ECTAB PO SCH (08:31)
[2017-07-07] MEDS: LACTOBACILLUS ACIDOPHILUS (FLORANEX) TAB PO SCH (08:31)
[2017-07-07] MEDS: CARVEDILOL 12.5 MG TAB PO SCH (08:32)
[2017-07-07] MEDS: INSULIN ASPART 100 UNITS/ML 3 ML PEN SC SCH ×4 (08:35→20:32)
[2017-07-07] MEDS: HEPARIN SOD 5000 UNIT/0.5 ML CARP SQ SCH ×2 (08:36→20:34)
--- NOTE | 2017-07-07 09:13 | Gastroenterology Progress Note ---
Progress Note Date of Service: Jul 07, 2017 Subjective Pt evaluation today including: conversation w/ patient, physical exam, lab review, review of studies Patient is a 76 yo male who originally presented to the hospital due to leakage from the paracentesis site. Dr. Horowitz of [facility] provided on-call coverage and suggested dermabond be applied to the site. There is a colostomy bag in place as well. Since this recommendation, there has been no further drainage from the site. The patient denies abdominal pain, nausea, vomiting, constipation or diarrhea. He offers no further complaints. He has been undergoing intermittent paracentesis due to significant ascites. The patient has no clear history of liver disease. He does have a history of congestive heart failure for which he follows closely with cardiology. Review of Systems Constitutional: No fever, No chills Eyes: No problem reported ENT: No hearing loss Respiratory: + dyspnea on exertion, No cough, No shortness of breath Cardiac: No chest pain Abdomen: No pain, No nausea, No vomiting, No diarrhea Musculoskeletal: No joint pain Neuro: No problem reported Psych: No problem reported Heme: No problem reported Endo: No problem reported Skin: No problem reported Medications Current Inpatient Medications Medications (Trade) Dose Ordered Sig/Geovanny Route Start Time Stop Time Status Last Admin Dose Admin Heparin Sodium (Porcine) (Heparin Sq 5000 Unit/0.5ml) 5,000 unit Q12 SQ 07/05/17 21:00 08/04/17 20:59 07/07/17 08:36 5,000 UNIT Acetaminophen (Tylenol Tab) 650 mg Q4H PRN PO 07/05/17 15:00 08/04/17 14:59 Al Hydrox/Mg Hydrox/Simethicone (Maalox Max Susp) 15 ml Q4H PRN PO 07/05/17 15:00 08/04/17 14:59 Magnesium Hydroxide (Milk Of Magnesia Susp) 30 ml Q12H PRN PO 07/05/17 15:00 08/04/17 14:59 Ondansetron HCl (Zofran Inj) 4 mg Q6H PRN IV 07/05/17 15:00 08/04/17 14:59 Nitroglycerin (Nitrostat Tab) 0.4 mg UD PRN SL 07/05/17 15:00 08/04/17 14:59 Polyethylene (Miralax Powder Packet) 17 gm DAILY PRN PO 07/05/17 15:00 08/04/17 14:59 Aspirin (Ecotrin Tab) 81 mg DAILY PO 07/06/17 09:00 08/05/17 08:59 07/07/17 08:31 81 MG Carvedilol (Coreg Tab) 12.5 mg DAILY PO 07/06/17 09:00 08/05/17 08:59 07/07/17 08:32 12.5 MG Cyanocobalamin (Vitamin B-12 Tab) 1,000 mcg DAILY PO 07/06/17 09:00 08/05/17 08:59 07/07/17 08:31 1,000 MCG Digoxin (Lanoxin Tab) 0.125 mg DAILY@1600 PO 07/05/17 18:00 08/04/17 17:59 07/06/17 17:08 0.125 MG Multivitamins/ Minerals (Multivitamin W/ Minerals Tab) 1 tab DAILY PO 07/06/17 09:00 08/05/17 08:59 07/07/17 08:31 1 TAB Simvastatin (Zocor Tab) 20 mg QPM PO 07/05/17 21:00 08/04/17 20:59 07/06/17 20:45 20 MG Ferrous Fumarate (Selene-Sequels Contr Rel Cap) 65 mg DAILY PO 07/06/17 09:00 08/05/17 08:59 07/07/17 08:31 65 MG Lactobacillus Acidophilus (Floranex Tab) 4 tab DAILY PO 07/06/17 09:00 08/05/17 08:59 07/07/17 08:31 4 TAB Hydralazine HCl (HydrALAZINE INJ) 10 mg Q6H PRN IV. 07/05/17 15:00 08/04/17 14:59 Insulin Aspart (novoLOG ASPART) SLIDING SCALE G... ACHS SC 07/05/17 21:00 08/04/17 20:59 07/07/17 08:35 3 UNITS Glucose (Glucose 40% Gel) 15-30 GRAMS 15 GRAMS... UD PRN PO 07/05/17 17:45 08/04/17 17:44 Glucose (Glucose Chew Tab) 4-8 Tablets 4 Tabl... UD PRN PO 07/05/17 17:45 08/04/17 17:44 07/06/17 07:16 8 TABS Dextrose (Dextrose 50% 50ML Syringe) 25-50ML OF 50% DW IV FOR... UD PRN IV 07/05/17 17:45 08/04/17 17:44 Glucagon (Glucagon Inj) 1 mg UD PRN SQ 07/05/17 17:45 08/04/17 17:44 Insulin Glargine (Lantus Solostar Pen) 10 units HS SC 07/06/17 21:00 08/04/17 20:59 07/06/17 20:42 10 UNITS Objective Vital Signs Date Time Temp Pulse Resp B/P (MAP) Pulse Ox O2 Delivery O2 Flow Rate FiO2 07/07/17 08:28 36.6 62 19 105/66 (79) 97 Room Air 07/07/17 04:00 Room Air 07/07/17 03:49 36.8 59 17 110/49 (69) 96 Nasal Cannula 07/06/17 23:59 Room Air 07/06/17 23:43 36.8 61 18 102/53 (69) 99 Room Air 07/06/17 20:06 Room Air 07/06/17 19:42 36.5 63 18 109/40 (63) 100 Room Air 07/06/17 17:08 60 07/06/17 16:00 Room Air 07/06/17 15:18 36.4 64 20 111/49 (69) 94 Room Air 07/06/17 12:00 Room Air Physical Exam General Appearance: WD/WN, no apparent distress Eyes: normal inspection, PERRL ENT: hearing grossly normal Respiratory/Chest: lungs clear Cardiovascular: regular rate, rhythm, + systolic murmur Abdomen: normal bowel sounds, non tender, soft Extremities: non-tender, + swelling Neurologic/Psych: alert, oriented x 3 Skin: normal color Laboratory Results Last 24 Hours Test 07/06/17 11:33 07/06/17 16:23 07/06/17 20:02 07/07/17 05:02 Bedside Glucose 109 mg/dl 139 mg/dl 119 mg/dl 96 mg/dl Test 07/07/17 05:35 07/07/17 07:03 White Blood Count 3.68 K/uL Red Blood Count 3.10 M/uL Hemoglobin 8.9 g/dL Hematocrit 28.4 % Mean Corpuscular Volume 91.6 fL Mean Corpuscular Hemoglobin 28.7 pg Mean Corpuscular Hemoglobin Concent 31.3 g/dl RDW Standard Deviation 56.2 fL RDW Coefficient of Variation 17.0 % Platelet Count 150 K/uL Mean Platelet Volume 8.5 fL Sodium Level 139 mmol/L Potassium Level 5.6 mmol/L Chloride Level 114 mmol/L Carbon Dioxide Level 20 mmol/L Anion Gap 5.0 mmol/L Blood Urea Nitrogen 76 mg/dl Creatinine 2.73 mg/dl Est Creatinine Clear Calc Drug Dose 29.2 ml/min Estimated GFR () 25.4 Estimated GFR (Non- 21.9 BUN/Creatinine Ratio 27.9 Random Glucose 84 mg/dl Calcium Level 7.9 mg/dl Bedside Glucose 80 mg/dl Assessment and Plan Patient is a 76 yo male admitted for leakage from his paracentesis site. This resolved with application of Dermabond. 1) Continue to monitor paracentesis site. Bag is in place around the site, however there is no further drainage since the application of Dermabond. 2) Continue outpatient follow-up as previously planned for further paracentesis when necessary. 3) Further treatment per cardiology & primary team. Thank you for allowing us to participate in the care of this patient. If you should have any further questions or concerns, do not hesitate to contact us. Agree with HENRI Lemus as above Abd: Soft, NT, +BS Continue current therapy Will follow clinical course and make further recommendations as needed.
--- NOTE | 2017-07-07 11:28 | Hospitalist Progress Note ---
Hospitalist Progress Note Date of Service Jul 07, 2017. (Nayla Lopez ., [facility]) Subjective Pt evaluation today including: conversation w/ patient, physical exam, chart review, lab review, review of inpatient medication list Pain: None PO Intake: Tolerating PO diet Voiding: no voiding problems The patient reports feeling well. He denies any further drainage from paracentesis site. He notes that he feels weaker than normal. He denies any shortness of breath at rest but feels that he would have dyspnea on exertion, which is unusual for him. The patient denies fevers, chills, sweats, chest pain , palpitations, claudication, cough, wheezing, shortness of breath at rest, nausea, vomiting, abdominal pain, dysuria, hematuria, urinary retention, paralysis, focal motor weakness, numbness and tingling. Additional Comments: See HPI for pertinent positives and negatives. All other systems reviewed and negative. (Nayla Lopez ., PA-C) Objective Vital Signs Date Time Temp Pulse Resp B/P (MAP) Pulse Ox O2 Delivery O2 Flow Rate FiO2 07/07/17 08:28 36.6 62 19 105/66 (79) 97 Room Air 07/07/17 08:00 96 Room Air 07/07/17 04:00 Room Air 07/07/17 03:49 36.8 59 17 110/49 (69) 96 Nasal Cannula 07/06/17 23:59 Room Air 07/06/17 23:43 36.8 61 18 102/53 (69) 99 Room Air 07/06/17 20:06 Room Air 07/06/17 19:42 36.5 63 18 109/40 (63) 100 Room Air 07/06/17 17:08 60 07/06/17 16:00 Room Air 07/06/17 15:18 36.4 64 20 111/49 (69) 94 Room Air 07/06/17 12:00 Room Air (Nayla Lopez ., JOSEP-C) Physical Exam Notes: General appearance: Well-developed, well-nourished, no apparent distress Head: Normocephalic, atraumatic Eyes: Normal inspection, PERRL, EOMI ENT: Normal ENT inspection, hearing grossly normal, pharynx normal Neck: Supple, no JVD, trachea midline Respiratory/Chest: Lungs clear to auscultation, normal breath sounds, no respiratory distress Cardiovascular: +Systolic murmur. Regular rate & rhythm, no gallop Abdomen/GI: +Distended, ascites. Empty colostomy bag over RLQ paracentesis site. Normal bowel sounds, non-tender Extremities/Musculoskeletal: +2+ pitting edema bilaterally, chronic. Normal inspection, no calf tenderness Neurological/Psych: Alert, normal mood/affect, oriented x 3 Skin: Normal color, warm/dry, no rash (Nayla Lopez ., PA-C) Laboratory Results Last 24 Hours Test 07/06/17 11:33 07/06/17 16:23 07/06/17 20:02 07/07/17 05:02 Bedside Glucose 109 mg/dl 139 mg/dl 119 mg/dl 96 mg/dl Test 07/07/17 05:35 07/07/17 07:03 White Blood Count 3.68 K/uL Red Blood Count 3.10 M/uL Hemoglobin 8.9 g/dL Hematocrit 28.4 % Mean Corpuscular Volume 91.6 fL Mean Corpuscular Hemoglobin 28.7 pg Mean Corpuscular Hemoglobin Concent 31.3 g/dl RDW Standard Deviation 56.2 fL RDW Coefficient of Variation 17.0 % Platelet Count 150 K/uL Mean Platelet Volume 8.5 fL Sodium Level 139 mmol/L Potassium Level 5.6 mmol/L Chloride Level 114 mmol/L Carbon Dioxide Level 20 mmol/L Anion Gap 5.0 mmol/L Blood Urea Nitrogen 76 mg/dl Creatinine 2.73 mg/dl Est Creatinine Clear Calc Drug Dose 29.2 ml/min Estimated GFR () 25.4 Estimated GFR (Non- 21.9 BUN/Creatinine Ratio 27.9 Random Glucose 84 mg/dl Calcium Level 7.9 mg/dl Bedside Glucose 80 mg/dl (Nayla Lopez ., PA-C) Assessment and Plan 76 y/o male with a history of 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 Leaking s/p paracentesis--resolved - Albumin at baseline- 2.7 - Add Ensure TIDM - Consult GI, appreciate recs: Continue outpatient follow up regarding further paracentesis when necessary. Severe idiopathy cardiomyopathy (EF 20-25%), s/p biventricular ICD implantation , chronic systolic CHF, 2-vessel CAD s/p cardiac stenting--stable - Continue to hold enalapril due to borderline hypotension - Will decrease Coreg to 6.25 mg PO qd - Add Bumex at lower dose, 0.5 mg PO BID - Monitor I&Os and daily weights closely - Continue Zocor 20 mg HS, ASA daily, Digoxin 0.125 mg daily - IV Hydralazine PRN ALBAN on CKD stage III-IV--resolving - New baseline in last few months around 2.4-2.8 - Creatinine 2.73 on 07/07, down from 3.13 - Resume Bumex as above - Avoid nephrotoxic agents and renally dose medications as appropriate - Follow PRP Hyperkalemia, likely secondary to ALBAN--ongoing - Monitor on tele. No acute events overnight. Pt paced with HR 60s-90s - Potassium 5.6 on 07/07 DM II--HgbA1c 6.24 October 2016 - Lantus decreased 10 units SC hs - Insulin sliding scale - Check BSGs q ac and qhs - Recheck HgbA1c Chronic anemia, ?secondary to CKD--stable - Hgb stable at baseline, around 9 - Continue iron supplement Chronic venous insufficiency, lymphedema--stable - Follows w/wound care as outpatient - Wound care consulted, appreciate recommendations Gout - Hold Allopurinol due to ALBAN DVT prophylaxis - Heparin 5000 units SQ q12h Code Status -Level I, FULL RESUSCITATION STATUS. No prolonged measures Dispo -Lives home alone -PT/OT pending (Nayla Lopez ., MILLIE) I personally interviewed and examined the patient. I agree with history of present illness and physical exam mentioned above, I also performed my own history taking and examination. Past medical history and review of system has been obtained by myself I reviewed all pertinent labs and studies Reviewed current medications I discussed and formulated of the assessment and plan mentioned above. Please refer to the Summary mentioned below. 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 Patient reported having overnight pulse ox monitor in the past but does not recall the results, giving his systolic congestive heart failure out of proportion of his coronary artery disease We will order overnight sleep study. 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 General Appearance: not in acute distress Eyes: normal Sclerae, extraocular muscle intact ENT: hearing grossly normal Neck: supple Respiratory/Chest: normal air entry bilateral ,no respiratory distress, no accessory muscle use Cardiovascular: regular rate, rhythm, no murmur Abdomen: non tender, soft, no masses Extremities: no edema Neurologic/Psychiatric: Awake alert oriented times place and person moves all extremities sensation intact cranial nerves II-12 appear to be intact Skin: normal color, warm/dry, no rash Faustino Schwab MD, [facility] hospitalist group (Faustino Petersen MD)
[2017-07-07] MEDS ORDERED: BOOST PLUS VANILLA PO SCH (11:30)
[2017-07-07] MEDS: BUMETANIDE 1 MG TAB PO SCH (16:39)
[2017-07-07] MEDS: DIGOXIN 0.125 MG TAB PO SCH (16:41)
[2017-07-07] MEDS: SIMVASTATIN 20 MG TAB PO SCH (20:26)
[2017-07-07] MEDS: BOOST PLUS VANILLA PO SCH (20:26)
[2017-07-07] MEDS: INSULIN GLARGINE SOLOSTAR 100 UNITS/ML 3 ML PEN SC SCH (20:33)
[2017-07-08] VITALS (9 sets, daily range): BP systolic 111–140; BP diastolic 48–60; PULSE 61–77; TEMP 36.4–37; O2SAT 95–100; Ht 182.9 cm; Wt 93.6 kg
[2017-07-08] MEDS: GLUCOSE 10 TABS/TUBE PO PRN (04:18)
[2017-07-08 05:45] LABS: BASO % 0.2 %; BASO ABS # 0.01 K/uL (0-0.2); EOS % 6.6 %; HEMATOCRIT 26.5 % (42-52); HEMOGLOBIN 8.5 g/dL (14.0-18.0); IG# 0.01 K/uL (0.00-0.02); LYMPH % 11.3 %; LYMPH ABS # 0.51 K/uL (1.2-3.4); MEAN CELL VOLUME 91.7 fL (80-100); MEAN CORPUSCULAR HEMOGLOBIN 29.4 pg (25-34); MEAN CORPUSCULAR HGB CONC 32.1 g/dl (32-36); MEAN PLATELET VOLUME 8.7 fL (7.4-10.4); MONO % 5.5 %; MONO ABS # 0.25 K/uL (0.11-0.59); NEUT % 76.2 %; NEUT ABS # 3.44 K/uL (1.4-6.5); PLATELET COUNT 130 K/uL (130-400); RED CELL DISTRIBUTION WIDTH CV 17.1 % (11.5-14.5); RED CELL DISTRIBUTION WIDTH SD 56.9 fL (36.4-46.3); WHITE BLOOD COUNT 4.52 K/uL (4.8-10.8)
[2017-07-08 06:14] LABS: ALBUMIN 2.2 gm/dl (3.4-5.0); CALCIUM 8.1 mg/dl (8.5-10.1); CREATININE 2.37 mg/dl (0.60-1.40)
[2017-07-08 06:17] LABS: TOTAL PROTEIN 5.4 gm/dl (6.4-8.2)
[2017-07-08 07:51] LABS: HEMOGLOBIN A1C 6.1 % (4.5-5.6)
[2017-07-08] MEDS: FERROUS FUMARATE CONTR REL CAP 65 MG CAPCR PO SCH (08:41)
[2017-07-08] MEDS: BUMETANIDE 1 MG TAB PO SCH ×2 (08:41→16:46)
[2017-07-08] MEDS: CARVEDILOL 6.25 MG TAB PO SCH (08:41)
[2017-07-08] MEDS: CYANOCOBALAMIN 500 MCG TAB (VIT B-12) PO SCH (08:41)
[2017-07-08] MEDS: LACTOBACILLUS ACIDOPHILUS (FLORANEX) TAB PO SCH (08:41)
[2017-07-08] MEDS: ASPIRIN 81 MG ECTAB PO SCH (08:41)
[2017-07-08] MEDS: CEROVITE ADV FORMULA TAB PO SCH (08:42)
[2017-07-08] MEDS: INSULIN ASPART 100 UNITS/ML 3 ML PEN SC SCH ×4 (08:43→21:35)
[2017-07-08] MEDS: HEPARIN SOD 5000 UNIT/0.5 ML CARP SQ SCH (08:52)
[2017-07-08] MEDS: BOOST PLUS VANILLA PO SCH ×2 (10:00→14:23)
[2017-07-08] MEDS ORDERED: SODIUM POLYST. SULF SUSP 15G/60ML PO STA ×2 (10:54→17:45)
[2017-07-08] MEDS ORDERED: ALBUTEROL HFA 8 GM INHALER INH ONE (11:00)
--- NOTE | 2017-07-08 11:05 | Hospitalist Progress Note ---
Hospitalist Progress Note Date of Service Jul 08, 2017. (Nayla Lopez .MILLIE) Subjective Pt evaluation today including: conversation w/ patient, physical exam, chart review, lab review, review of inpatient medication list Pain: None PO Intake: Tolerating PO diet Voiding: no voiding problems The patient reports feeling well. He denies any further drainage from paracentesis. He states he did have some dyspnea on exertion after working with PT yesterday but otherwise denies shortness of breath. The patient denies fevers, chills, sweats, chest pain, palpitations, claudication, cough, wheezing , shortness of breath at rest, nausea, vomiting, abdominal pain, dysuria, hematuria, urinary retention, paralysis, weakness, numbness and tingling. Additional Comments: See HPI for pertinent positives and negatives. All other systems reviewed and negative. (Nayla Lopez ., [facility]) Objective Vital Signs Date Time Temp Pulse Resp B/P (MAP) Pulse Ox O2 Delivery O2 Flow Rate FiO2 07/08/17 07:28 36.5 66 16 118/59 (78) 96 Room Air 07/08/17 05:21 65 18 98 Room Air 07/08/17 04:00 Room Air 07/08/17 03:47 37.0 76 18 126/60 (82) 97 Room Air 07/07/17 23:59 Room Air 07/07/17 22:57 36.8 73 18 119/60 (79) 99 Room Air 07/07/17 20:00 Room Air 07/07/17 19:13 36.5 68 20 110/47 (68) 98 Room Air 07/07/17 16:41 64 07/07/17 16:00 100 Room Air 07/07/17 15:48 36.8 63 20 107/52 (70) 100 Room Air 07/07/17 12:24 36.6 64 19 105/50 (68) 100 Room Air 07/07/17 12:00 Room Air (Nayla Lopez PA-C) Physical Exam Notes: General appearance: Well-developed, well-nourished, no apparent distress Head: Normocephalic, atraumatic Eyes: Normal inspection, PERRL, EOMI ENT: Normal ENT inspection, hearing grossly normal, pharynx normal Neck: Supple, no JVD, trachea midline Respiratory/Chest: Lungs clear to auscultation, normal breath sounds, no respiratory distress Cardiovascular: +Systolic murmur. Regular rate & rhythm, no gallop Abdomen/GI: +Distended, ascites. Empty colostomy bag over RLQ paracentesis site. Normal bowel sounds, non-tender Extremities/Musculoskeletal: +2+ pitting edema bilaterally, chronic. Normal inspection, no calf tenderness Neurological/Psych: Alert, normal mood/affect, oriented x 3 Skin: Normal color, warm/dry, no rash (Nayla Lopez, [facility]) Laboratory Results Last 24 Hours Test 07/07/17 11:38 07/07/17 16:30 07/07/17 19:25 07/07/17 22:37 Bedside Glucose 94 mg/dl 91 mg/dl 74 mg/dl 137 mg/dl Test 07/08/17 03:51 07/08/17 04:11 07/08/17 04:35 07/08/17 05:30 Bedside Glucose 45 mg/dl 55 mg/dl 90 mg/dl White Blood Count 4.52 K/uL Red Blood Count 2.89 M/uL Hemoglobin 8.5 g/dL Hematocrit 26.5 % Mean Corpuscular Volume 91.7 fL Mean Corpuscular Hemoglobin 29.4 pg Mean Corpuscular Hemoglobin Concent 32.1 g/dl Platelet Count 130 K/uL Mean Platelet Volume 8.7 fL Neutrophils (%) (Auto) 76.2 % Lymphocytes (%) (Auto) 11.3 % Monocytes (%) (Auto) 5.5 % Eosinophils (%) (Auto) 6.6 % Basophils (%) (Auto) 0.2 % Neutrophils # (Auto) 3.44 K/uL Lymphocytes # (Auto) 0.51 K/uL Monocytes # (Auto) 0.25 K/uL Eosinophils # (Auto) 0.30 K/uL Basophils # (Auto) 0.01 K/uL RDW Standard Deviation 56.9 fL RDW Coefficient of Variation 17.1 % Immature Granulocyte % (Auto) 0.2 % Immature Granulocyte # (Auto) 0.01 K/uL Ovalocytes 1+ Sodium Level 139 mmol/L Potassium Level 6.0 mmol/L Chloride Level 112 mmol/L Carbon Dioxide Level 22 mmol/L Anion Gap 5.0 mmol/L Blood Urea Nitrogen 73 mg/dl Creatinine 2.37 mg/dl Est Creatinine Clear Calc Drug Dose 32.7 ml/min Estimated GFR () 30.1 Estimated GFR (Non- 26.0 BUN/Creatinine Ratio 31.0 Random Glucose 86 mg/dl Estimated Average Glucose 128 mg/dl Hemoglobin A1c 6.1 % Calcium Level 8.1 mg/dl Magnesium Level 2.3 mg/dl Total Bilirubin 0.2 mg/dl Aspartate Amino Transf (AST/SGOT) 14 U/L Alanine Aminotransferase (ALT/SGPT) 18 U/L Alkaline Phosphatase 70 U/L Total Protein 5.4 gm/dl Albumin 2.2 gm/dl Globulin 3.2 gm/dl Albumin/Globulin Ratio 0.7 Test 07/08/17 06:25 Bedside Glucose 84 mg/dl (Nayla Lopez, MILLIE) Assessment and Plan 76 y/o male with a history of 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 Leaking s/p paracentesis--resolved - Albumin 2.2 on 07/08, down from 2.7 - Add Ensure TIDM - Consult GI, appreciate recs: Continue outpatient follow up regarding further paracentesis when necessary. Severe idiopathy cardiomyopathy (EF 20-25%), s/p biventricular ICD implantation , chronic systolic CHF, 2-vessel CAD s/p cardiac stenting--stable - Continue to hold enalapril due to borderline hypotension - Will decrease Coreg to 6.25 mg PO qd - Add Bumex at lower dose, 0.5 mg PO BID - Monitor I&Os and daily weights closely - Continue Zocor 20 mg HS, ASA daily, Digoxin 0.125 mg daily - IV Hydralazine PRN ALBAN on CKD stage III-IV--resolving - New baseline in last few months around 2.4-2.8 - Creatinine 2.37 on 07/08, down from 2.73 - Resume Bumex as above - Avoid nephrotoxic agents and renally dose medications as appropriate - Follow PRP Hyperkalemia, unclear etiology--worsening - Monitor on tele. No acute events overnight. Pt paced with HR 60s-80s - Potassium 6.0 on 07/08 - Repeat EKG no changes - Kayexalate and albuterol 5 mg neb now, repeat PRP at 1500 DM II--HgbA1c 6.24 October 2016 - Hypoglycemic again this am, hold Lantus tonight - Pt reportedly uses different carb ratio at home, will change ISS to 1 unit/25 g carb ratio - Check BSGs q ac and qhs - HgbA1c 6.1 Chronic anemia, ?secondary to CKD--stable - Hgb stable at baseline, around 9 - Continue iron supplement Chronic venous insufficiency, lymphedema--stable - Follows w/wound care as outpatient - Wound care consulted, appreciate recommendations Gout - Hold Allopurinol due to ALBAN DVT prophylaxis - Heparin 5000 units SQ q12h Code Status -Level I, FULL RESUSCITATION STATUS. No prolonged measures Dispo -Lives home alone -PT/OT ok to return to home when medically stable (Nayla Lopez ., MILLIE) I personally interviewed and examined the patient. I agree with history of present illness and physical exam mentioned above, I also performed my own history taking and examination. Past medical history and review of system has been obtained by myself I reviewed all pertinent labs and studies Reviewed current medications I discussed and formulated of the assessment and plan mentioned above. Please refer to the Summary mentioned below. 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 Patient reported having overnight pulse ox monitor in the past but does not recall the results, giving his systolic congestive heart failure out of proportion of his coronary artery disease We will order overnight sleep study. 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 Today he was noticed to have hyperkalemia, potassium level was 6 Admit patient to telemetry Order kayexalate Order albuterol 5 mg continuous nebulizer to lower potassium level General Appearance: not in acute distress Eyes: normal Sclerae, extraocular muscle intact ENT: hearing grossly normal Neck: supple Respiratory/Chest: normal air entry bilateral ,no respiratory distress, no accessory muscle use Cardiovascular: regular rate, rhythm, no murmur Abdomen: non tender, soft, no masses Extremities: no edema Neurologic/Psychiatric: Awake alert oriented times place and person moves all extremities sensation intact cranial nerves II-12 appear to be intact Skin: normal color, warm/dry, no rash Faustino Schwab MD, [facility] (Faustino Petersen MD)
[2017-07-08] MEDS ORDERED: ALBUTEROL 0.5% NEB SOLN 2.5 MG/0.5 ML VIAL INH STA (12:04)
[2017-07-08] MEDS: DIGOXIN 0.125 MG TAB PO SCH (16:46)
[2017-07-08 16:49] LABS: CALCIUM 8.1 mg/dl (8.5-10.1); CREATININE 2.19 mg/dl (0.60-1.40); POTASSIUM 6.1 mmol/L (3.5-5.1)
[2017-07-08] MEDS ORDERED: INSULIN HUMAN REGULAR IV STA (17:34)
[2017-07-08] MEDS ORDERED: CALCIUM GLUCONATE 10% 1,000 MG in SODIUM CHLORIDE 0.9% 50ML 50 ML IV ONE (17:45)
[2017-07-08] MEDS ORDERED: DEXTROSE 50% 50 ML SYR IV ONE (17:45)
[2017-07-08] MEDS ORDERED: INSULIN HUMAN REGULAR PER UNIT 10 UNITS in SYRINGE 9.9 ML IV SCH (17:45)
[2017-07-08] MEDS ORDERED: ALBUTEROL 0.083% NEBU SOLN 3 ML VIAL INH STA (17:57)
[2017-07-08] MEDS: SIMVASTATIN 20 MG TAB PO SCH (21:50)
[2017-07-09] MEDS: SODIUM POLYST. SULF SUSP 15G/60ML PO SCH ×4 (00:12→19:55)
[2017-07-09 03:59] VITALS: BP 113/52; PULSE 60; TEMP 36.7; O2SAT 93
[2017-07-09 05:55] LABS: BASO % 0.2 %; BASO ABS # 0.01 K/uL (0-0.2); EOS % 6.7 %; EOS ABS # 0.27 K/uL (0-0.5); HEMATOCRIT 25.4 % (42-52); HEMOGLOBIN 8.3 g/dL (14.0-18.0); IG# 0.01 K/uL (0.00-0.02); LYMPH % 13.7 %; LYMPH ABS # 0.55 K/uL (1.2-3.4); MEAN CELL VOLUME 91.4 fL (80-100); MEAN CORPUSCULAR HEMOGLOBIN 29.9 pg (25-34); MEAN CORPUSCULAR HGB CONC 32.7 g/dl (32-36); MEAN PLATELET VOLUME 9.3 fL (7.4-10.4); MONO % 6.2 %; MONO ABS # 0.25 K/uL (0.11-0.59); NEUT ABS # 2.92 K/uL (1.4-6.5); PLATELET COUNT 139 K/uL (130-400); RED CELL DISTRIBUTION WIDTH CV 16.9 % (11.5-14.5); RED CELL DISTRIBUTION WIDTH SD 56.6 fL (36.4-46.3); WHITE BLOOD COUNT 4.01 K/uL (4.8-10.8)
[2017-07-09 06:26] LABS: ALBUMIN 2.1 gm/dl (3.4-5.0); CALCIUM 8.2 mg/dl (8.5-10.1); CREATININE 1.9 mg/dl (0.60-1.40); POTASSIUM 5.4 mmol/L (3.5-5.1)
[2017-07-09 06:29] LABS: TOTAL PROTEIN 5.4 gm/dl (6.4-8.2)
[2017-07-09 06:56] VITALS: BP 122/55; PULSE 71; TEMP 36.8; O2SAT 91
[2017-07-09] MEDS: INSULIN ASPART 100 UNITS/ML 3 ML PEN SC SCH ×4 (07:00→20:05)
[2017-07-09] MEDS: BOOST GLUCOSE CONTROL PO SCH ×2 (07:30→11:30)
[2017-07-09] MEDS: BUMETANIDE 1 MG TAB PO SCH ×2 (07:38→16:16)
[2017-07-09] MEDS: FERROUS FUMARATE CONTR REL CAP 65 MG CAPCR PO SCH (07:38)
[2017-07-09] MEDS: CARVEDILOL 6.25 MG TAB PO SCH (07:38)
[2017-07-09] MEDS: LACTOBACILLUS ACIDOPHILUS (FLORANEX) TAB PO SCH (07:38)
[2017-07-09] MEDS: CEROVITE ADV FORMULA TAB PO SCH (07:38)
[2017-07-09] MEDS: ASPIRIN 81 MG ECTAB PO SCH (07:38)
[2017-07-09] MEDS: CYANOCOBALAMIN 500 MCG TAB (VIT B-12) PO SCH (07:38)
[2017-07-09] MEDS ORDERED: LIDOCAINE HCL 1% 20 ML VIAL ONE (10:01)
--- NOTE | 2017-07-09 10:09 | Hospitalist Progress Note ---
Hospitalist Progress Note Date of Service Jul 09, 2017. (Nayla Lopez .MILLIE) Subjective Pt evaluation today including: conversation w/ patient, physical exam, chart review, lab review, review of inpatient medication list Pain: None PO Intake: Tolerating PO diet Voiding: no voiding problems Patient states he is frustrated as his paracentesis site started leaking again last night. Per nursing, he has had about 500 cc drainage total. He otherwise denies complaints. The patient denies fevers, chills, sweats, chest pain, palpitations, claudication, cough, wheezing, shortness of breath, nausea, vomiting, abdominal pain, dysuria, hematuria, urinary retention, paralysis, weakness, numbness and tingling. Additional Comments: See HPI for pertinent positives and negatives. All other systems reviewed and negative. (Nayla Lopez, MILLIE) Objective Vital Signs Date Time Temp Pulse Resp B/P (MAP) Pulse Ox O2 Delivery O2 Flow Rate FiO2 07/09/17 08:05 Room Air 07/09/17 06:56 36.8 71 17 122/55 (77) 91 Room Air 07/09/17 04:00 Room Air 07/09/17 03:59 36.7 60 19 113/52 (72) 93 Room Air 07/08/17 23:59 Room Air 07/08/17 23:49 36.8 68 18 118/52 (74) 95 Room Air 07/08/17 20:00 Room Air 07/08/17 19:52 36.4 71 22 140/55 (83) 100 Room Air 07/08/17 18:17 75 14 95 Room Air 07/08/17 16:46 64 07/08/17 16:00 100 Room Air 07/08/17 15:55 36.6 61 22 111/48 (69) 100 Room Air 07/08/17 12:00 Room Air 07/08/17 11:55 36.5 77 18 122/49 (73) 100 Room Air (Nayla Lopez PA-C) Physical Exam Notes: General appearance: Well-developed, well-nourished, no apparent distress Head: Normocephalic, atraumatic Eyes: Normal inspection, PERRL, EOMI ENT: Normal ENT inspection, hearing grossly normal, pharynx normal Neck: Supple, no JVD, trachea midline Respiratory/Chest: Lungs clear to auscultation, normal breath sounds, no respiratory distress Cardiovascular: +Systolic murmur. Regular rate & rhythm, no gallop Abdomen/GI: +Distended, ascites. Small amount serosanguineous fluid in colostomy bag over paracentesis site. Normal bowel sounds, non-tender Extremities/Musculoskeletal: +2+ pitting edema bilaterally, chronic. Normal inspection, no calf tenderness Neurological/Psych: Alert, normal mood/affect, oriented x 3 Skin: Normal color, warm/dry, no rash (Nayla Lopez ., MILLIE) Laboratory Results Last 24 Hours Test 07/08/17 11:17 07/08/17 16:05 07/08/17 16:21 07/08/17 20:58 Bedside Glucose 77 mg/dl 155 mg/dl 87 mg/dl Sodium Level 138 mmol/L Potassium Level 6.1 mmol/L Chloride Level 110 mmol/L Carbon Dioxide Level 22 mmol/L Anion Gap 6.0 mmol/L Blood Urea Nitrogen 63 mg/dl Creatinine 2.19 mg/dl Est Creatinine Clear Calc Drug Dose 35.4 ml/min Estimated GFR () 33.2 Estimated GFR (Non- 28.6 BUN/Creatinine Ratio 28.7 Random Glucose 140 mg/dl Calcium Level 8.1 mg/dl Test 07/08/17 21:57 07/09/17 01:57 07/09/17 04:50 07/09/17 05:21 Potassium Level 5.8 mmol/L 5.8 mmol/L 5.4 mmol/L Bedside Glucose 101 mg/dl White Blood Count 4.01 K/uL Red Blood Count 2.78 M/uL Hemoglobin 8.3 g/dL Hematocrit 25.4 % Mean Corpuscular Volume 91.4 fL Mean Corpuscular Hemoglobin 29.9 pg Mean Corpuscular Hemoglobin Concent 32.7 g/dl Platelet Count 139 K/uL Mean Platelet Volume 9.3 fL Neutrophils (%) (Auto) 73.0 % Lymphocytes (%) (Auto) 13.7 % Monocytes (%) (Auto) 6.2 % Eosinophils (%) (Auto) 6.7 % Basophils (%) (Auto) 0.2 % Neutrophils # (Auto) 2.92 K/uL Lymphocytes # (Auto) 0.55 K/uL Monocytes # (Auto) 0.25 K/uL Eosinophils # (Auto) 0.27 K/uL Basophils # (Auto) 0.01 K/uL RDW Standard Deviation 56.6 fL RDW Coefficient of Variation 16.9 % Immature Granulocyte % (Auto) 0.2 % Immature Granulocyte # (Auto) 0.01 K/uL Ovalocytes 1+ Sodium Level 138 mmol/L Chloride Level 112 mmol/L Carbon Dioxide Level 21 mmol/L Anion Gap 5.0 mmol/L Blood Urea Nitrogen 63 mg/dl Creatinine 1.90 mg/dl Est Creatinine Clear Calc Drug Dose 40.5 ml/min Estimated GFR () 39.4 Estimated GFR (Non- 34.0 BUN/Creatinine Ratio 33.1 Random Glucose 94 mg/dl Calcium Level 8.2 mg/dl Magnesium Level 2.2 mg/dl Total Bilirubin 0.2 mg/dl Aspartate Amino Transf (AST/SGOT) 15 U/L Alanine Aminotransferase (ALT/SGPT) 19 U/L Alkaline Phosphatase 66 U/L Total Protein 5.4 gm/dl Albumin 2.1 gm/dl Globulin 3.3 gm/dl Albumin/Globulin Ratio 0.6 Test 07/09/17 06:26 Bedside Glucose 94 mg/dl (Nayla Lopez, MILLIE) Assessment and Plan 76 y/o male with a history of 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 Leaking s/p paracentesis--ongoing - Albumin 2.2 on 07/08, down from 2.7 - Add Ensure TIDM - Consult GI, appreciate recs: Continue outpatient follow up regarding further paracentesis when necessary. - Site began to leak again last night, about 500 cc drained total so far. Will close with sutures Severe idiopathy cardiomyopathy (EF 20-25%), s/p biventricular ICD implantation , chronic systolic CHF, 2-vessel CAD s/p cardiac stenting--stable - Continue to hold enalapril due to borderline hypotension - Will decrease Coreg to 6.25 mg PO qd - Add Bumex at lower dose, 0.5 mg PO BID - Monitor I&Os and daily weights closely - Continue Zocor 20 mg HS, ASA daily, Digoxin 0.125 mg daily - IV Hydralazine PRN ALBAN on CKD stage III-IV--resolving - New baseline in last few months around 2.4-2.8 - Creatinine 1.9 on 07/09, down from 2.37 - Resume Bumex as above - Avoid nephrotoxic agents and renally dose medications as appropriate - Follow PRP Hyperkalemia, unclear etiology--improving - Monitor on tele. No acute events overnight. Pt paced with HR 60s-70s - Pt received total 3 doses kayexalate, 1 gm calcium gluconate, insulin 10 units w/ 2 amps D50 - Kayexalate 15 mg PO q6h - Potassium 5.4 on 07/09, down from 6.1. Recheck at 1200 DM II--HgbA1c 6.24 October 2016 - BSGs stable, no hypoglycemia this am, continue to hold Lantus - Pt reportedly uses different carb ratio at home, will change ISS to 1 unit/25 g carb ratio - Check BSGs q ac and qhs - HgbA1c 6.1 Chronic anemia, ?secondary to CKD--stable - Hgb stable at baseline, around 9 - Continue iron supplement Chronic venous insufficiency, lymphedema--stable - Follows w/wound care as outpatient - Wound care consulted, appreciate recommendations Gout - Hold Allopurinol due to ALBAN DVT prophylaxis - Heparin 5000 units SQ q12h Code Status -Level I, FULL RESUSCITATION STATUS. No prolonged measures Dispo -Lives home alone -PT/OT ok to return to home when medically stable (Nayla Lopez ., PA-C) PA Physician Supervision Note: I interviewed and examined the patient. Discussed with Nayla Lopez PAC and agree with findings and plan as documented in the note. Any exceptions or clarifications are listed here: None Patient was doing well however he was still having persistent drainage from his previous paracentesis site patient is only other complaints are edema especially to his right arm and lower extremities Vitals are 36 8 7117 122/55 cardiac exam is regular with a systolic murmur her lungs are decreased breath sounds at the bases his abdomen is normoactive bowel sounds soft his right lateral abdomen has a small puncture wound that is draining a yellow liquid this is being collected into a colostomy bag with a wafer in place After verbal consent the area was prepped and cleaned in a sterile fashion a [id number] suture of 3-0 silk was placed wound then stopped draining liquid Patient is here with abdominal ascites secondary to ischemic cardia myopathy from chronic systolic heart failure he also had acute kidney injury on top of chronic kidney disease stage III hyperkalemia. Hyperkalemia does persist but is improving and we are also attending to controlling his diabetes Documented By: Markus Ortiz (Markus Ortiz M.D.)
[2017-07-09 11:38] VITALS: BP 120/51; PULSE 67; TEMP 36.4; O2SAT 99
[2017-07-09] MEDS: DIGOXIN 0.125 MG TAB PO SCH (16:16)
[2017-07-09 16:18] VITALS: BP 112/53; PULSE 64; TEMP 36.4; O2SAT 99
[2017-07-09] MEDS: SIMVASTATIN 20 MG TAB PO SCH (19:55)
[2017-07-09 20:00] VITALS: BP 117/55; PULSE 67; TEMP 36.4; O2SAT 100
[2017-07-09] MEDS: BOOST PLUS VANILLA PO SCH (20:02)
[2017-07-09 23:44] VITALS: BP 119/56; PULSE 64; TEMP 36.8; O2SAT 96
[2017-07-10] MEDS: SODIUM POLYST. SULF SUSP 15G/60ML PO SCH ×2 (01:32→07:00)
[2017-07-10 03:30] VITALS: BP 118/54; PULSE 73; TEMP 36.7; O2SAT 93
[2017-07-10 06:32] LABS: HEMATOCRIT 26.2 % (42-52); HEMOGLOBIN 8.4 g/dL (14.0-18.0); MEAN CELL VOLUME 91.9 fL (80-100); MEAN CORPUSCULAR HEMOGLOBIN 29.5 pg (25-34); MEAN CORPUSCULAR HGB CONC 32.1 g/dl (32-36); PLATELET COUNT 140 K/uL (130-400); RED CELL DISTRIBUTION WIDTH CV 17.2 % (11.5-14.5); RED CELL DISTRIBUTION WIDTH SD 57.3 fL (36.4-46.3)
[2017-07-10] MEDS: INSULIN ASPART 100 UNITS/ML 3 ML PEN SC SCH ×2 (07:00→12:42)
[2017-07-10 07:04] LABS: CALCIUM 8.2 mg/dl (8.5-10.1); CREATININE 1.79 mg/dl (0.60-1.40); POTASSIUM 4.7 mmol/L (3.5-5.1)
[2017-07-10 07:37] VITALS: BP 113/47; PULSE 70; TEMP 36.5; O2SAT 97
[2017-07-10] MEDS: CEROVITE ADV FORMULA TAB PO SCH (07:56)
[2017-07-10] MEDS: LACTOBACILLUS ACIDOPHILUS (FLORANEX) TAB PO SCH (07:56)
[2017-07-10] MEDS: CARVEDILOL 6.25 MG TAB PO SCH (07:57)
[2017-07-10] MEDS: CYANOCOBALAMIN 500 MCG TAB (VIT B-12) PO SCH (07:57)
[2017-07-10] MEDS: FERROUS FUMARATE CONTR REL CAP 65 MG CAPCR PO SCH (07:57)
[2017-07-10] MEDS: BUMETANIDE 1 MG TAB PO SCH (07:57)
[2017-07-10] MEDS: ASPIRIN 81 MG ECTAB PO SCH (07:57)
[2017-07-10] MEDS: BOOST PLUS VANILLA PO SCH (09:44)
[2017-07-10] MEDS ORDERED: INSDGI SC (10:58)
[2017-07-10] MEDS ORDERED: CRG625 PO (10:59)
[2017-07-10] MEDS ORDERED: BMX1 PO (10:59)
--- NOTE | 2017-07-10 11:10 | Discharge Instructions ---
Discharge Instructions Date of Service Jul 10, 2017. Admission Reason for Admission: Javier, Fluid Leak S/P Paracentesis Discharge Discharge Diagnosis / Problem: Acute kidney injury, paracentesis leak Discharge Goals Goal(s): Decrease discomfort, Diagnostic testing, Therapeutic intervention Activity Recommendations Activity Limitations: resume your previous activity (as tolerated) . Instructions / Follow-Up Instructions / Follow-Up You were admitted to the hospital with significant drainage from your paracentesis site following the procedure. You were also found to have acute kidney injury. Any medications that could be harmful to the kidneys were stopped, and your kidney function is now back to your baseline. With regards to your paracentesis leak, gastroenterology evaluated you and applied Dermabond glue to stop the leakage. This did help for a few days, but ultimately you began leaking again. The hospitalist team sutured your site closed and this has so far stopped the leaking. During your hospital stay, you developed an elevated potassium. This was treated and is now back in normal range. You are now medically stable for discharge. Medications: *STOP taking enalapril for now as this may have contributed to your acute kidney injury on presentation. Your blood pressure has also been low-normal while in the hospital. Stop taking this until you follow up with your primary care provider, who may resume this medication at a later date. *Your carvedilol dose has been decreased from 12.5 mg to 6.25 mg daily. This prescription has been sent to your pharmacy. *Your Bumex has been decreased from 2 mg daily to 0.5 mg twice a day. You have been given a prescription for 1 mg tablets, please cut this in half. *Please stop your nighttime Lantus dose for the next few days, as you have been having low blood sugars in the morning here in the hospital. Continue to check your blood sugars as usual. If you notice that your sugars are getting high, you can call the endocrine help line about resuming your insulin. *Continue your other home medications as prescribed. Follow up: *You will be scheduled to follow up with your primary care provider in about 1 week. Your PCP can remove your sutures at this time. You will also need to follow up regarding your blood pressure and possibly resuming enalapril. *You will also be scheduled to follow up with Dr. Chacon's office. Please seek medical attention if you experience fevers, chills, sweats, dizziness/lightheadedness, loss of consciousness, chest pain, shortness of breath, nausea, vomiting, numbness or tingling. Current Hospital Diet Patient's current hospital diet: AHA Diet (Heart Healthy), Diabetes Type 2 Diet Discharge Diet Recommended Diet: AHA Diet (Heart Healthy), Diabetes Type 2 Diet Pending Studies Studies pending at discharge: no Laboratory Results Hemoglobin A1c Test 07/08/17 05:30 Range/Units Estimated Average Glucose 128 mg/dl Hemoglobin A1c 6.1 H 4.5-5.6 % Medical Emergencies . Who to Call and When: Medical Emergencies: If at any time you feel your situation is an emergency, please call 911 immediately. . Non-Emergent Contact Non-Emergency issues call your: Primary Care Provider, Patient Registration Specialist Call Non-Emergent contact if: you have a fever, wound has increased drainage, wound has increased redness, wound has increased pain, you have any medication questions . Past History Medical & Surgical History: (1) JAVIER (acute kidney injury) (2) fluid leak s/p paracentesis . "Provider Documentation" section prepared by Nayla Lopez. .
[2017-07-10 12:20] VITALS: BP 113/47; PULSE 70; TEMP 36.5; O2SAT 97
--- NOTE | 2017-07-10 14:51 | Discharge Summary ---
Discharge Summary Date of Service Jul 10, 2017. 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%), s/p biventricular ICD implantation , chronic systolic CHF, 2-vessel CAD s/p cardiac stenting, HTN, HLD, DM II, CKD stage III-IV, lymphedema, chronic anemia, ascites of unknown cause, and gout Immunizations: Have You Had Influenza Vaccine: Yes Influenza Vaccine Date: Feb 10, 2012 History of Tetanus Vaccine?: Yes History of Pneumococcal: due now History of Hepatitis B Vaccine: No Consultations: Gastroenterology Medication Reconciliation New Medications: Bumetanide (Bumetanide) 1 Mg Tab 0.5 MG PO BIDM for 30 Days, #30 TAB Carvedilol (Carvedilol) 6.25 Mg Tab 6.25 MG PO DAILY for 30 Days, #30 TAB Continued Medications: Allopurinol (Allopurinol) 100 Mg Tab 100 MG PO DAILY Ascorbic Acid (Vitamin C) 500 Mg Cap 500 MG PO DAILY Aspirin (Aspirin 81) 81 Mg Tab 81 MG PO DAILY Calcium Carbonate-Vitamin D (Calcium + D) 1 Tab Tab 1 TAB PO DAILY Cholecalciferol (Vitamin D3) 2,000 Unit Cap 1 CAP PO DAILY for 90 Days, #90 CAP 3 Refills Cyanocobalamin (Vitamin B-12) 1,000 Mcg Tab 1000 MCG PO DAILY, TAB Digoxin (Digoxin) 0.125 Mg Tab 0.125 MG PO QPM Ferrous Fumarate (Iron) Unknown Strength Tab 65 MG PO DAILY Multiple Vitamins W/ Minerals (Centrum Silver 50+Men) 1 Tab Tab 1 TAB PO DAILY Probiotic Product (Probiotic) 1 Tab Tab 1 TAB PO DAILY Simvastatin (Zocor) 20 Mg Tab 20 MG PO QPM, TAB Discontinued Medications: Bumetanide (Bumex) 2 Mg Tab 2 MG PO DAILY, TAB Carvedilol (Coreg) 12.5 Mg Tab 12.5 MG PO DAILY, TAB Enalapril (Vasotec) 10 Mg Tab 20 MG PO DAILY, TAB Insulin Glargine (Lantus) 100 Unit/Ml Inj 14 UNITS SC HS, VIAL Discharge Exam Patient reports feeling well. No further drainage from paracentesis site. The patient denies fevers, chills, sweats, chest pain, palpitations, claudication, cough, wheezing, shortness of breath, nausea, vomiting, abdominal pain, dysuria , hematuria, urinary retention, paralysis, weakness, numbness and tingling. Constitutional: No fever, No chills, No sweats Eyes: No worsening of vision, No eye pain, No diplopia ENT: No hearing loss, No nasal symptoms, No trouble swallowing Respiratory: No cough, No wheezing, No shortness of breath Cardiovascular: No chest pain, No claudication, No palpitations Abdomen: No pain, No nausea, No vomiting Musculoskeletal: No joint pain, No muscle pain, No swelling Genitourinary - Male: No dysuria, No urinary retention, No hematuria Neurologic: No paralysis, No weakness, No numbness/tingling Integumentary: No rash, No itch, No color change General appearance: Well-developed, well-nourished, no apparent distress Head: Normocephalic, atraumatic Eyes: Normal inspection, PERRL, EOMI ENT: Normal ENT inspection, hearing grossly normal, pharynx normal Neck: Supple, no JVD, trachea midline Respiratory/Chest: Lungs clear to auscultation, normal breath sounds, no respiratory distress Cardiovascular: +Systolic murmur. Regular rate & rhythm, no gallop Abdomen/GI: +Distended, stable. Sutures in place, no drainage from paracentesis noted. Normal bowel sounds, non-tender Extremities/Musculoskeletal: +2+ pitting edema bilaterally, chronic. Normal inspection, no calf tenderness Neurological/Psych: Alert, normal mood/affect, oriented x 3 Skin: Normal color, warm/dry, no rash Hospital Course 76 y/o male with a history of 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 Leaking s/p paracentesis--resolving - Albumin 2.2 on 07/08, down from 2.7 - Add Ensure TIDM - Consult GI, appreciate recs: Continue outpatient follow up regarding further paracentesis when necessary. - Site had been glued with Dermabond, began leaking again. Closed with figure eight silk suture. Remove sutures in 7 days. 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 Follow up with PCP, may be able to resume at later date - Will decrease Coreg to 6.25 mg PO qd - Continue Bumex at lower dose, 0.5 mg PO BID - Monitor I&Os and daily weights closely - Continue Zocor 20 mg HS, ASA daily, Digoxin 0.125 mg daily - IV Hydralazine PRN ALBAN on CKD stage III-IV--resolved - New baseline in last few months around 2.4-2.8 - Creatinine 1.79 on 07/10, down from 1.9 - Resume Bumex as above - Avoid nephrotoxic agents and renally dose medications as appropriate - Follow PRP Hyperkalemia, unclear etiology--resolved - Monitor on tele. No acute events overnight. Pt paced with HR 60s-70s - Pt received total 6 doses kayexalate, 1 gm calcium gluconate, insulin 10 units w/ 2 amps D50 - Potassium now WNL, down to 4.7 at discharge DM II--HgbA1c 6.24 October 2016 - BSGs stable, no hypoglycemia this am, continue to hold Lantus. Instructed pt to hold Lantus at discharge for now and monitor BSGs at home. If becoming high , can resume. Pt states he follows with endocrine and there is a number he can call with questions - Pt reportedly uses different carb ratio at home, will change ISS to 1 unit/25 g carb ratio - Check BSGs q ac and qhs - HgbA1c 6.1 Chronic anemia, ?secondary to CKD--stable - Hgb stable at baseline, around 9 - Continue iron supplement Chronic venous insufficiency, lymphedema--stable - Follows w/wound care as outpatient - Wound care consulted, appreciate recommendations Gout - Resume allopurinol as ALBAN resolved DVT prophylaxis - Heparin 5000 units SQ q12h Code Status -Level I, FULL RESUSCITATION STATUS. No prolonged measures Dispo -Lives home alone -PT/OT ok to return to home PA Physician Supervision Note: I interviewed and examined the patient. Discussed with Nayla ÁLVAREZ and agree with findings and plan as documented in the note. Any exceptions or clarifications are listed here: None Patient is doing well as it no further leaking from his paracentesis site. 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 Discharge Instructions Please refer to the electronic Patient Visit Report (Discharge Instructions) for additional information. Additional Copies To Elba Johns M.D.
== END 2017-07-10 13:50 | disposition home or self-care (01) | DRG 920 ==
LOC: C.EDB 12:24 → C.2E 15:39 → ENRESERV 16:13
PROVIDERS: ADMIT Family Medicine; ATTEND Internal Medicine
PROC: 0HQ7XZZ Repair Abdomen Skin, External Approach (ICD-10-PCS; principal; 2017-07-09)
DX: T81.89XA Other complications of procedures, not elsewhere classified, initial encounter (principal); I42.9 Cardiomyopathy, unspecified; N17.9 Acute kidney failure, unspecified; R18.8 Other ascites; I50.22 Chronic systolic (congestive) heart failure; N25.81 Secondary hyperparathyroidism of renal origin; I87.2 Venous insufficiency (chronic) (peripheral); N18.3 Chronic kidney disease, stage 3 (moderate); M35.3 Polymyalgia rheumatica; I35.1 Nonrheumatic aortic (valve) insufficiency; M10.9 Gout, unspecified; E87.5 Hyperkalemia; D64.9 Anemia, unspecified; E78.00 Pure hypercholesterolemia, unspecified; E55.9 Vitamin D deficiency, unspecified; Z85.46 Personal history of malignant neoplasm of prostate; Z93.3 Colostomy status; Z79.82 Long term (current) use of aspirin; Z95.0 Presence of cardiac pacemaker; Z95.5 Presence of coronary angioplasty implant and graft; Z87.891 Personal history of nicotine dependence; Z83.3 Family history of diabetes mellitus; Y84.8 Other medical procedures as the cause of abnormal reaction of the patient, or of later complication, without mention of misadventure at the time of the procedure

== ENCOUNTER → 2017-07-17 | Outpatient (CLI) | payer OTHER, MEDICARE ==
[~2017-07-17] MED LIST changes: +ALL100 PO; -ALLO100T PO; +ASCO1CAP3 PO; -ASPEC81 PO; +ASPI-435 PO; +BMX1 PO; -BUME1TAB PO; +CALC600T9 PO; -CALCTAB7 PO; -CHOL100010 PO; +CHOL2000 PO; -CRG25 PO; +CRG625 PO; -DIGO0.1219 PO; -ENAL10TA88 PO; +FERR18TA2 PO; -FERR1TAB13 PO; -INSDGI SC; -LCTX PO; +LNX125 PO; +MULT-1093 PO; -NVLGI SQ; +PROB1TAB16 PO; -SPR25 PO
[2017-07-17 13:33] LABS: BLOOD UREA NITROGEN 39 mg/dl (7-18); CALCIUM 8.9 mg/dl (8.5-10.1); CARBON DIOXIDE 27 mmol/L (21-32); GLUCOSE 116 mg/dl (70-99); POTASSIUM 4.8 mmol/L (3.5-5.1); SODIUM 143 mmol/L (136-145)
== END | disposition home or self-care (01) ==
LOC: C.LABPVFM 10:56
PROVIDERS: ATTEND Family Medicine
DX: I42.9 Cardiomyopathy, unspecified (principal); R60.9 Edema, unspecified

== ENCOUNTER → 2017-08-11 | Outpatient (CLI) | payer OTHER, MEDICARE ==
[~2017-08-11] MED LIST changes: +CARV12.5 PO; +LVQ500 PO
[2017-08-11 17:39] LABS: INR 1.2 (0.9-1.1); PTT PATIENT 27.7 SECONDS (21.0-31.0)
== END | disposition home or self-care (01) ==
LOC: C.LABPVFM 13:06
PROVIDERS: ATTEND Registered Nurse
DX: R18.8 Other ascites (principal)

== ENCOUNTER 2017-08-12 12:43 | Day surgery (SDC) | payer OTHER, MEDICARE ==
[~2017-08-12] VITALS: Ht 182.9 cm; Wt 103.6 kg
[~2017-08-12 12:43] MED LIST changes: +ALBUMIN HUMAN 25% 12.5 GM/50 ML VIAL IV PRN; -CARV12.5 PO; -LVQ500 PO
[2017-08-12] MEDS ORDERED: CARV12.5 PO (13:06)
[2017-08-12 13:09] VITALS: BP 126/64; PULSE 62; TEMP 36.3; O2SAT 97; Ht 182.9 cm; Wt 103.6 kg
[2017-08-12 15:30] VITALS: BP 128/63; PULSE 61; TEMP 36.4; O2SAT 100
[2017-08-12] MEDS: ALBUMIN HUMAN 25% 12.5 GM/50 ML VIAL IV SCH ×2 (15:46→16:05)
[2017-08-12 16:02] VITALS: BP 129/62; PULSE 61; TEMP 36.5; O2SAT 96
--- NOTE | 2017-08-12 16:15 | Discharge Instructions ---
Discharge Instructions Procedure Procedure Date: Aug 12, 2017. Reason for visit: Ascites. Discharge Discharge Date: Aug 12, 2017. Discharge Diagnosis: same Instructions Activity Recommendations: No limitations Return to School/Work: no limitations Recommended Home Diet: Resume Previous Diet Provider Instructions: ACTIVITY RECOMMENDATIONS: * Rest today. * Resume regular activity in one day. MEDICATIONS: * May take Tylenol or Ibuprofen as needed for pain. DIET: * Resume previous diet. SPECIAL CARE INSTRUCTIONS: Call your doctor if: * Temperature above 101 degrees F. * Pain not relieved by pain medicine ordered. * Increased drainage or redness from incision. * Notify your doctor with any questions or concerns. Call your doctor or go to the nearest Emergency Department if you experience: * Increased chest pain or shortness of breath. FOLLOW UP VISIT: Follow-up with Referring Physician as scheduled. Allergies Coded Allergies: No Known Allergies (Verified , 08/12/17) Misty Donis Recommendations: Call your doctor if: * Temperature above 101 degrees * Pain not relieved by pain medicine ordered * There is increased drainage or redness from any incision * You have any unanswered questions or concerns. Your Doctors Instructions noted above were prepared by provider Geronimo Lewis. Patient Signature Section: Patient Instructions Signature Page Mitch Rico Patient (or Guardian) Signature/Date: I have read and understand the instructions given to me by my caregivers. Caregiver/RN/Doctor Signature/Date: The above-named patient and/or guardian has received patient instructions on this date. + Original Patient Signature Page (only) stays with chart. Please make copy for patient.
[2017-08-12 16:41] VITALS: BP 129/63; PULSE 61; TEMP 36.4; O2SAT 100
--- NOTE | 2017-08-12 16:47 | DIAGNOSTIC IMAGING REPORT ---
ULTRASOUND-GUIDED DIAGNOSTIC AND THERAPEUTIC PARACENTESIS: HISTORY: Ascites. Procedure: The procedure and its risks, benefits and alternatives were discussed with the patient and written informed consent was obtained. Preliminary ultrasound of the abdomen was performed to determine a safe needle entry site. The right lower quadrant was prepped and draped in the usual sterile fashion. 1% Lidocaine was used for local anesthesia. A paracentesis needle-sheath was inserted into the peritoneal space using ultrasound guidance. The needle was removed and the sheath was connected to tubing and a vacuum suction device. A total of 7.4 liters of yellow ascites was aspirated. The sheath was removed and a sterile dressing applied. The patient tolerated the procedure well and there were no immediate complications. IMPRESSION: Ultrasound-guided therapeutic paracentesis with aspiration of 7.4 liters of ascites. 1 L was sent to the laboratory for further evaluation. Electronically signed by: Geronimo Lewis M.D. 08/12/2017 4:46 PM Dictated Date/Time: 08/12/2017 4:46 PM
[2017-08-12 17:36] VITALS: BP 136/61; PULSE 62; TEMP 36.5; O2SAT 99
== END 2017-08-12 17:50 | disposition home or self-care (01) ==
LOC: C.ACU 12:43
PROVIDERS: ATTEND Registered Nurse
DX: R18.8 Other ascites (principal)

== ENCOUNTER → 2017-08-27 | Outpatient (CLI) | payer OTHER, MEDICARE ==
[~2017-08-27] MED LIST changes: -ALBUMIN HUMAN 25% 12.5 GM/50 ML VIAL IV PRN; +CARV12.5 PO; -CRG625 PO; +LVQ500 PO
[2017-08-27 17:35] LABS: PLATELET COUNT 209 K/uL (130-400)
[2017-08-27 17:44] LABS: INR 1.2 (0.9-1.1); PTT PATIENT 29.3 SECONDS (21.0-31.0)
== END | disposition home or self-care (01) ==
LOC: C.LABPVFM 13:58
PROVIDERS: ATTEND Registered Nurse
DX: R18.8 Other ascites (principal)

== ENCOUNTER 2017-08-30 12:31 | Emergency (ER) | payer OTHER, MEDICARE ==
[~2017-08-30] VITALS: Ht 182.9 cm; Wt 98.0 kg
[~2017-08-30 12:31] MED LIST changes: -ALL100 PO; -BMX1 PO; +BUME1TAB PO; +LEVO-17 PO; -LVQ500 PO
[2017-08-30 12:38] VITALS: Ht 182.9 cm; Wt 98.0 kg
[2017-08-30] MEDS ORDERED: LIDOCAINE 1% BUFFERED INJ 5 ML VIAL ONE (13:03)
--- NOTE | 2017-08-30 13:29 | Procedure Note ---
Procedure Note Date of Service August 30, 2017. Procedure Note Suture Procedure Note Procedure - Figure 8 Suture Resident - Dr. Juan C Shepherd Attending - Dr. Aris Whitfield Prior to starting the procedure informed consent was obtained. Risks and Benefits of the procedure were reviewed. Risks are bleeding, infection, failure of the procedure. Benefits include stopping the fluid leakage. Allergies were reviewed. Patient was positioned appropriately, time out was performed, patient identified and procedure reviewed. The area on the lower right abdomen was prepped with iodine x 3 times. After waiting for the iodine to dry each, 4cc lidocaine without epinephrine was inserted subcutaneously as a local anesthetic. Patient was sterile draped with wound exposed. 4 x 0 sutures were placed with good approximation in a figure 8 technique. Wound dressed with Dermabond x 3 and sterile gauze. Procedure tolerated without complications. Pt will be observed for one hour for continuation of leakage. Resident Involvement: Resident Care Provided Care Provided: Adult ED
[2017-08-30 13:37] LABS: BASO % 0.2 %; BASO ABS # 0.01 K/uL (0-0.2); EOS % 2.8 %; EOS ABS # 0.13 K/uL (0-0.5); HEMATOCRIT 33.2 % (42-52); HEMOGLOBIN 10.7 g/dL (14.0-18.0); LYMPH % 7.1 %; LYMPH ABS # 0.33 K/uL (1.2-3.4); MEAN CELL VOLUME 91.2 fL (80-100); MEAN CORPUSCULAR HEMOGLOBIN 29.4 pg (25-34); MEAN CORPUSCULAR HGB CONC 32.2 g/dl (32-36); MEAN PLATELET VOLUME 9.2 fL (7.4-10.4); MONO % 7.5 %; MONO ABS # 0.35 K/uL (0.11-0.59); NEUT % 82.4 %; NEUT ABS # 3.85 K/uL (1.4-6.5); PLATELET COUNT 163 K/uL (130-400); RED CELL DISTRIBUTION WIDTH CV 15.8 % (11.5-14.5); RED CELL DISTRIBUTION WIDTH SD 53.3 fL (36.4-46.3); WHITE BLOOD COUNT 4.67 K/uL (4.8-10.8)
[2017-08-30 13:54] LABS: ALBUMIN 2.5 gm/dl (3.4-5.0); CALCIUM 8.3 mg/dl (8.5-10.1); CREATININE 1.99 mg/dl (0.60-1.40); POTASSIUM 5.3 mmol/L (3.5-5.1)
[2017-08-30 13:59] LABS: TOTAL PROTEIN 5.9 gm/dl (6.4-8.2)
--- NOTE | 2017-08-30 14:23 | EMERGENCY ROOM VISIT NOTE ---
History Report prepared by Sloane: Jori Meraz Under the Supervision of: Dr. Aris Whitfield M.D. First contact with patient: 12:46 Chief Complaint: CATHETER REPLACEMENT Stated Complaint: CAN'T EMPTY BAG - BLEEDING History of Present Illness The patient is a 76 year old male who presents to the Emergency Room with complaints of a persistent colostomy leakage today. He states that he had a paracentesis done yesterday, having fluid drained from his abdomen. The patient says that he follows-up with multiple doctors about this, and they do not know why the patient has so much fluid in his abdomen. He notes that he has had a paracentesis done many times in the past. The patient says that his colostomy bag is not working and is leaking "quite a bit". He says that this has happened before, and he needs it stitched up like last time. He notes that he is on Levaquin. The patient says that he had a bowel movement this morning. Pt denies LOC, headache, fevers, chills, diaphoresis, visual changes, neck pain, chest pain, breathing difficulties, nausea, vomiting, abdominal pain, back pain, melena, hematochezia, urinary symptoms, numbness, weakness, lymphadenopathy, rash, or other complaints. Source of History: patient Onset: Today Position: abdomen Symptom Intensity: says has leaked "quite a bit" Quality: other (colostomy leakage) Timing: other (persistent) Note: No other associated symptoms noted. Review of Systems See HPI for pertinent positives and negatives. A total of ten systems were reviewed and were otherwise negative. Past Medical & Surgical Medical Problems: (1) ALBAN (acute kidney injury) (2) Ascites (3) Diabetic peripheral neuropathy associated with type 2 diabetes mellitus (4) fluid leak s/p paracentesis (5) Ischemic cardiomyopathy (6) Loss of sensation (7) Lymphedema (8) Peripheral vascular disease (9) Prostate cancer Family History Family history omitted secondary to patient's advanced age. Social History Smoking Status: Former Smoker Drug Use: none Marital Status: Occupation Status: retired Current/Historical Medications Scheduled Ascorbic Acid (Vitamin C), 500 MG PO DAILY Aspirin (Aspirin 81), 81 MG PO DAILY Bumetanide (Bumex), 1 TAB PO DAILY Calcium Carbonate-Vitamin D (Calcium + D), 1 TAB PO DAILY Carvedilol (Coreg), 12.5 MG PO DAILY Cholecalciferol (Vitamin D3), 1 CAP PO DAILY Cyanocobalamin (Vitamin B-12), 1,000 MCG PO DAILY Digoxin (Digoxin), 0.125 MG PO QPM Ferrous Fumarate (Iron), 65 MG PO DAILY Levofloxacin (Levaquin), 250 MG PO DAILY Multiple Vitamins W/ Minerals (Centrum Silver 50+Men), 1 TAB PO DAILY Probiotic Product (Probiotic), 1 TAB PO DAILY Simvastatin (Zocor), 20 MG PO QPM Allergies Coded Allergies: Sulfamethoxazole w/Trimethoprim (Verified Adverse Reaction, Severe, Kidney failure, 08/29/17) Physical Exam Vital Signs Date Time Temp Pulse Resp B/P (MAP) Pulse Ox O2 Delivery O2 Flow Rate FiO2 08/30/17 15:32 36.4 60 16 117/61 97 08/30/17 14:09 60 16 117/61 97 Room Air 08/30/17 12:38 36.4 77 18 116/71 98 Room Air Physical Exam GENERAL: Awake, alert, well-appearing, in no distress HENT: Normocephalic, atraumatic. Oropharynx unremarkable. EYES: Normal conjunctiva. Sclera non-icteric. NECK: Supple. No nuchal rigidity. FROM. No masses. RESPIRATORY: Clear to auscultation. No wheezes. No rales. Normal respiratory effort. CARDIAC: Normal rate. Normal rhythm. No murmurs. No rubs. Extremities warm and well perfused. Pulses equal. No JVD. GI: Soft, non-distended. There is a puncture wound in right lower quadrant consistent with paracentesis that is draining clear yellow fluid. No tenderness to palpation. No rebound or guarding. No masses. MUSCULOSKELETAL: Atraumatic. Chest examination reveals no tenderness. No joint edema. LOWER EXTREMITIES: Calves are equal size bilaterally and non-tender. 3+ lower extremity edema. Leg wraps in place. No discoloration. NEURO: Normal sensorium. No sensory or motor deficits noted. SKIN: No rash or jaundice noted. Medical Decision & Procedures Laboratory Results 08/30/17 13:30 Red Blood Count 3.64, Mean Corpuscular Volume 91.2, Mean Corpuscular Hemoglobin 29.4, Mean Corpuscular Hemoglobin Concent 32.2, Mean Platelet Volume 9.2, Neutrophils (%) (Auto) 82.4, Lymphocytes (%) (Auto) 7.1, Monocytes (%) (Auto) 7.5, Eosinophils (%) (Auto) 2.8, Basophils (%) (Auto) 0.2, Neutrophils # (Auto) 3.85, Lymphocytes # (Auto) 0.33, Monocytes # (Auto) 0.35, Eosinophils # (Auto) 0.13, Basophils # (Auto) 0.01 08/30/17 13:30 Test 08/30/17 13:30 White Blood Count 4.67 K/uL (4.8-10.8) Red Blood Count 3.64 M/uL (4.7-6.1) Hemoglobin 10.7 g/dL (14.0-18.0) Hematocrit 33.2 % (42-52) Mean Corpuscular Volume 91.2 fL (80-100) Mean Corpuscular Hemoglobin 29.4 pg (25-34) Mean Corpuscular Hemoglobin Concent 32.2 g/dl (32-36) Platelet Count 163 K/uL (130-400) Mean Platelet Volume 9.2 fL (7.4-10.4) Neutrophils (%) (Auto) 82.4 % Lymphocytes (%) (Auto) 7.1 % Monocytes (%) (Auto) 7.5 % Eosinophils (%) (Auto) 2.8 % Basophils (%) (Auto) 0.2 % Neutrophils # (Auto) 3.85 K/uL (1.4-6.5) Lymphocytes # (Auto) 0.33 K/uL (1.2-3.4) Monocytes # (Auto) 0.35 K/uL (0.11-0.59) Eosinophils # (Auto) 0.13 K/uL (0-0.5) Basophils # (Auto) 0.01 K/uL (0-0.2) RDW Standard Deviation 53.3 fL (36.4-46.3) RDW Coefficient of Variation 15.8 % (11.5-14.5) Immature Granulocyte % (Auto) 0.0 % Immature Granulocyte # (Auto) 0.00 K/uL (0.00-0.02) Anion Gap 2.0 mmol/L (3-11) Est Creatinine Clear Calc Drug Dose 39.5 ml/min Estimated GFR () 37.2 Estimated GFR (Non- 32.1 BUN/Creatinine Ratio 28.1 (10-20) Calcium Level 8.3 mg/dl (8.5-10.1) Total Bilirubin 0.4 mg/dl (0.2-1) Aspartate Amino Transf (AST/SGOT) 16 U/L (15-37) Alanine Aminotransferase (ALT/SGPT) 20 U/L (12-78) Alkaline Phosphatase 86 U/L (45-117) Total Protein 5.9 gm/dl (6.4-8.2) Albumin 2.5 gm/dl (3.4-5.0) Globulin 3.4 gm/dl (2.5-4.0) Albumin/Globulin Ratio 0.7 (0.9-2) Laboratory results reviewed by me Procedure SUTURE OF PARACENTESIS PUNCTURE SITE Procedure performed by myself and Dr. Juan C Shepherd. We were both present the entire time. Location: Right lower Complexity: Simple Verbal consent was obtained after the risks and benefits were explained, including but not limited to bleeding, scarring, infection, pain, damage to underlying organs, and bone/joint/nerve damage. At this time, the risks of the procedure are less than the risks of NOT performing the procedure. A time out was taken and the correct patient and site identified. The skin was prepped with betadine and a sterile field set.The wound was anesthetized with 2 ml of 1 % lidocaine without epinephrine. The wound was explored for foreign bodies and none found. Debridement was not performed. The hole was closed with a [id number] stitch of 4-0 nylon suture. Hemostasis and excellent approximation was achieved, peritoneal fluid stopped leaking. Layers of Dermabond applied. A sterile dressing applied. Detailed wound care instructions and signs and symptoms of infection reviewed with the patient. No complications and the patient tolerated the procedure well. ED Course 1249: The patient was evaluated in room B6. A complete history and physical exam was performed. 1440: I reevaluated the patient and he is not oozing. Discussed results and discharge instructions: he verbalized understanding and agreement. The patient is ready for discharge. Medical Decision The patient presented to the emergency department complaining of continued leaking from his right lower quadrant paracentesis site. Differential includes poor wound healing, infection, hypoalbuminemia, electrolyte disturbance, dehydration, as well as others. His physical examination was as above. He had a benign abdomen. He had a significant amount of drainage coming from the right lower paracentesis wound. He states that the procedure was done with a zigzag entry but unfortunately he is leaking. He states he has leaked 4 out of last 5 paracenteses. He required stitching in the past. Blood work is obtained and his wound was closed as above. He was observed and did very well with this. He had slight worsening of his renal function. His albumin and protein are low but consistent with prior measurements. Nephrology was notified. Patient will be followed up as an outpatient. The patient was seen and examined with Dr. Shepherd, resident physician. We discussed the case and treatments ordered, reviewed the results, and determine the disposition. Please refer to the resident's note for additional details. I have been directly involved with the management and disposition as well as independently evaluated the patient as documented in this note. By the evaluation outlined above other emergent etiologies such as those listed in the differential, as well as others, were deemed relatively unlikely. The patient was educated about the findings as listed above. All questions were answered and the patient was pleased with the treatment. Return instructions were outlined and the patient was discharged in stable condition. The patient was referred to his primary team for follow-up for a recheck of the current condition. Medication Reconcilliation Current Medication List: was personally reviewed by me Blood Pressure Screening Patient's blood pressure: Normal blood pressure Impression Primary Impression: fluid leak s/p paracentesis Additional Impressions: Hyperkalemia Chronic kidney disease Scribe Attestation The scribe's documentation has been prepared under my direction and personally reviewed by me in its entirety. I confirm that the note above accurately reflects all work, treatment, procedures, and medical decision making performed by me. Departure Information Dispostion Home / Self-Care Referrals Elba Johns M.D. (PCP) Patient Instructions My [facility] Additional Instructions We have placed a figure 8 suture in your abdomen and Dermabond glue on top of the suture. After observing you for one hour there was no evidence of a leak from the abdomen. It was deemed safe for you to be discharged. While in the hospital we saw that your Potassium was 5.3 and your creatinine was 1.99, and GFR was 32. 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 Please call Dr. Jeronimo and let him know that you were seen in the ER on Friday and ask him to check your numbers. Dr. Jeronimo might like to see your earlier than your previously scheduled appointment in one month. Please call your primary care provider or oncologist if your abdomen begins to leak fluid. Problem Qualifiers
[2017-08-30 15:32] VITALS: BP 117/61; PULSE 60; TEMP 36.4; O2SAT 97
== END 2017-08-30 15:33 | disposition home or self-care (01) ==
LOC: C.EDB 12:33
DX: L76.82 Other postprocedural complications of skin and subcutaneous tissue (principal); R18.8 Other ascites; E87.5 Hyperkalemia; N18.9 Chronic kidney disease, unspecified; E11.40 Type 2 diabetes mellitus with diabetic neuropathy, unspecified; I25.5 Ischemic cardiomyopathy; I73.9 Peripheral vascular disease, unspecified; Z87.891 Personal history of nicotine dependence; Z79.82 Long term (current) use of aspirin; Z79.899 Other long term (current) drug therapy; Z88.2 Allergy status to sulfonamides; Z93.3 Colostomy status

== ENCOUNTER 2017-09-07 23:53 | Emergency (ER) | payer OTHER, MEDICARE ==
[~2017-09-07] VITALS: Ht 182.9 cm; Wt 104.4 kg
--- NOTE | 2017-09-08 00:03 | EMERGENCY ROOM VISIT NOTE ---
History Report prepared by Sloane: Taylor Knight Under the Supervision of: Dr. Brock Arteaga M.D. First contact with patient: 23:54 Chief Complaint: RESPIRATORY PROBLEMS Stated Complaint: BREATHING DIFFICULTY History of Present Illness The patient is a 76 year old male who presents to the Emergency Room with complaints of worsening troubled breathing that started this morning. The patient has a history of paracentesis. He reports he has to get them drained every few weeks. He notes he had a centesis last week that was leaking but he felt fine until today. He reports his breathing was getting worse throughout the day. The patient was given breathing treatments by EMS and states that helped his breathing. The patient reports he is not normally on O2 at home. He states he lives alone. The patient was taken off Lasix and put on Bumex. He reports he takes 1 81 mg Aspirin every day. The patient denies chest pain. Source of History: patient Onset: couple of hours ago Position: other (respiratory ) Timing: worsening Associated Symptoms: No chest pain Review of Systems See HPI for pertinent positives & negatives. A total of 10 systems reviewed and were otherwise negative. Past Medical & Surgical Medical Problems: (1) ALBAN (acute kidney injury) (2) Ascites (3) Diabetic peripheral neuropathy associated with type 2 diabetes mellitus (4) fluid leak s/p paracentesis (5) Ischemic cardiomyopathy (6) Loss of sensation (7) Lymphedema (8) Peripheral vascular disease (9) Prostate cancer Family History No pertinent family history Social History Smoking Status: Former Smoker Drug Use: none Marital Status: Occupation Status: retired Current/Historical Medications Scheduled Ascorbic Acid (Vitamin C), 500 MG PO DAILY Aspirin (Aspirin 81), 81 MG PO DAILY Bumetanide (Bumex), 1 TAB PO DAILY Calcium Carbonate-Vitamin D (Calcium + D), 1 TAB PO DAILY Carvedilol (Coreg), 12.5 MG PO DAILY Cholecalciferol (Vitamin D3), 1 CAP PO DAILY Cyanocobalamin (Vitamin B-12), 1,000 MCG PO DAILY Digoxin (Digoxin), 0.125 MG PO QPM Ferrous Fumarate (Iron), 65 MG PO DAILY Insulin Aspart (Novolog), Unknown Dose SC DIRECTED Insulin Glargine (Lantus), 3 UNITS SC HS Levofloxacin (Levaquin), 250 MG PO DAILY Multiple Vitamins W/ Minerals (Centrum Silver 50+Men), 1 TAB PO DAILY Probiotic Product (Probiotic), 1 TAB PO DAILY Simvastatin (Zocor), 20 MG PO QPM Allergies Coded Allergies: Sulfamethoxazole w/Trimethoprim (Verified Adverse Reaction, Severe, Kidney failure, 09/08/17) Physical Exam Vital Signs Date Time Temp Pulse Resp B/P (MAP) Pulse Ox O2 Delivery O2 Flow Rate FiO2 09/08/17 02:20 76 20 139/76 94 09/08/17 02:02 139/76 09/08/17 01:53 70 97 09/08/17 01:31 121/58 09/08/17 01:23 66 100 09/08/17 01:01 125/59 09/08/17 00:53 64 100 09/08/17 00:31 126/62 09/08/17 00:24 66 17 94 Room Air 09/08/17 00:23 67 16 92 09/08/17 00:10 70 09/08/17 00:06 36.5 89 28 129/60 93 Room Air 09/08/17 00:06 93 Room Air 09/08/17 00:06 93 Room Air 09/08/17 00:02 121/65 Physical Exam GENERAL: Awake, alert, well-appearing, in no acute distress HENT: Normocephalic, atraumatic. Oropharynx unremarkable. EYES: Normal conjunctiva. Sclera non-icteric. NECK: Supple. No nuchal rigidity. FROM. No JVD. RESPIRATORY: Clear to auscultation. CARDIAC: Regular rate, normal rhythm. Extremities warm and well perfused. Pulses equal. ABDOMEN: Distended, old paracentesis scar. No tenderness to palpation. No rebound or guarding. No masses. RECTAL: Deferred. MUSCULOSKELETAL: Chest examination reveals no tenderness. The back is symmetrical on inspection without obvious abnormality. There is no CVA tenderness to palpation. No joint edema. UPPER EXTREMITIES: Lymphedema changes to right arm. LOWER EXTREMITIES: Calves are equal size bilaterally and non-tender. No edema. No discoloration. NEURO: Normal sensorium. No sensory or motor deficits noted. SKIN: No rash or jaundice noted. Medical Decision & Procedures ER Provider Diagnostic Interpretation: 1 VIEW CHEST X-RAY interpreted by me: Pacemaker in place. Appears to be small infiltrate at left base. Chronic changes. Laboratory Results 09/08/17 00:05 Red Blood Count 3.60, Mean Corpuscular Volume 93.9, Mean Corpuscular Hemoglobin 29.4, Mean Corpuscular Hemoglobin Concent 31.4, Mean Platelet Volume 9.9, Neutrophils (%) (Auto) 78.0, Lymphocytes (%) (Auto) 10.5, Monocytes (%) (Auto) 5.4, Eosinophils (%) (Auto) 5.6, Basophils (%) (Auto) 0.3, Neutrophils # (Auto) 4.46, Lymphocytes # (Auto) 0.60, Monocytes # (Auto) 0.31, Eosinophils # (Auto) 0.32, Basophils # (Auto) 0.02 09/08/17 00:05 Test 09/08/17 00:05 09/08/17 00:16 09/08/17 01:51 White Blood Count 5.72 K/uL (4.8-10.8) Red Blood Count 3.60 M/uL (4.7-6.1) Hemoglobin 10.6 g/dL (14.0-18.0) Hematocrit 33.8 % (42-52) Mean Corpuscular Volume 93.9 fL (80-100) Mean Corpuscular Hemoglobin 29.4 pg (25-34) Mean Corpuscular Hemoglobin Concent 31.4 g/dl (32-36) Platelet Count 160 K/uL (130-400) Mean Platelet Volume 9.9 fL (7.4-10.4) Neutrophils (%) (Auto) 78.0 % Lymphocytes (%) (Auto) 10.5 % Monocytes (%) (Auto) 5.4 % Eosinophils (%) (Auto) 5.6 % Basophils (%) (Auto) 0.3 % Neutrophils # (Auto) 4.46 K/uL (1.4-6.5) Lymphocytes # (Auto) 0.60 K/uL (1.2-3.4) Monocytes # (Auto) 0.31 K/uL (0.11-0.59) Eosinophils # (Auto) 0.32 K/uL (0-0.5) Basophils # (Auto) 0.02 K/uL (0-0.2) RDW Standard Deviation 55.7 fL (36.4-46.3) RDW Coefficient of Variation 16.1 % (11.5-14.5) Immature Granulocyte % (Auto) 0.2 % Immature Granulocyte # (Auto) 0.01 K/uL (0.00-0.02) Anion Gap 4.0 mmol/L (3-11) Est Creatinine Clear Calc Drug Dose 51.6 ml/min Estimated GFR () 49.6 Estimated GFR (Non- 42.8 BUN/Creatinine Ratio 23.6 (10-20) Calcium Level 8.6 mg/dl (8.5-10.1) Total Bilirubin 0.4 mg/dl (0.2-1) Aspartate Amino Transf (AST/SGOT) 15 U/L (15-37) Alanine Aminotransferase (ALT/SGPT) 19 U/L (12-78) Alkaline Phosphatase 80 U/L (45-117) Total Creatine Kinase 40 U/L (39-308) Creatine Kinase MB 3.0 ng/ml (0.5-3.6) Creatine Kinase MB Ratio 7.5 (0-3.0) Troponin I 0.027 ng/ml (0-0.045) Total Protein 6.3 gm/dl (6.4-8.2) Albumin 2.4 gm/dl (3.4-5.0) Globulin 3.9 gm/dl (2.5-4.0) Albumin/Globulin Ratio 0.6 (0.9-2) Influenza Type A Antigen Neg for Influ A (NEG) Influenza Type B Antigen Neg for Influ B (NEG) Digoxin Level 1.0 ng/ml (0.8-2.0) Urine Color YELLOW Urine Appearance CLEAR (CLEAR) Urine pH 5.0 (4.5-7.5) Urine Specific [place] 1.018 (1.000-1.030) Urine Protein 2+ (NEG) Urine Glucose (UA) NEG (NEG) Urine Ketones NEG (NEG) Urine Occult Blood NEG (NEG) Urine Nitrite NEG (NEG) Urine Bilirubin NEG (NEG) Urine Urobilinogen NEG (NEG) Urine Leukocyte Esterase NEG (NEG) Urine WBC (Auto) 1-5 /hpf (0-5) Urine RBC (Auto) 0-4 /hpf (0-4) Urine Hyaline Casts (Auto) 1-5 /lpf (0-5) Urine Epithelial Cells (Auto) 5-10 /lpf (0-5) Urine Bacteria (Auto) NEG (NEG) Labs reviewed by ED physician. Medications Administered Medications (Trade) Dose Ordered Sig/Geovanny Route Start Time Stop Time Status Last Admin Dose Admin Albuterol/ Ipratropium (Duoneb) 12 ml ONE ONCE INH 09/08/17 00:15 09/08/17 00:16 DC 09/08/17 00:23 12 ML Bumetanide (Bumex Iv) 1 mg NOW STAT IV 09/08/17 00:30 09/08/17 00:31 DC 09/08/17 00:30 1 MG ECG Per My Interpretation Indication: SOB/dyspnea Rate (beats per minute): 79 Rhythm: other (paced rhythm ) Findings: other (no ST elevantion or depression ) ED Course 2354: Past medical records reviewed. The patient was evaluated in room B6. A complete history and physical examination was performed. 0015: Duoneb 12 ml INH. 0030: Bumetanide Iv 1 mg IV. 0145: The patient states his Bumex was recently reduced from 1 mg twice per day to 1 mg once per day. 0152: Upon reexamination the patient is feeling better. I discussed results and treatment plan with the patient. He verbalizes agreement and understanding. The patient is ready for discharge. Medical Decision Differential diagnosis: Etiologies such as infections, reactive airway disease, pneumonia, pneumothorax , COPD, CHF, cardiac ischemia, pulmonary embolism, musculoskeletal, gastrointestinal, as well as others were entertained. This is a 76-year-old male who is a history of congestive heart failure who presents emergency department complaining of shortness of breath. The patient was given a breathing treatment with much improvement. The patient recently had his Bumex cut back to once a day from twice a day and his chest x-ray does suggest a small amount of pulmonary edema. Based on this the patient was given Bumex here in the emergency department. He was ambulated to the bathroom by myself. He appears to be remarkably improved. I do feel that he can be safely discharged home. I recommended he increase his Bumex to twice a day for the next 3 days and have a follow-up partial renal profile with his primary care physician. Patient was in agreement with the treatment plan. Medication Reconcilliation Current Medication List: was personally reviewed by me Blood Pressure Screening Patient's blood pressure: Normal blood pressure Impression Primary Impression: CHF exacerbation Scribe Attestation The scribe's documentation has been prepared under my direction and personally reviewed by me in its entirety. I confirm that the note above accurately reflects all work, treatment, procedures, and medical decision making performed by me. Departure Information Dispostion Home / Self-Care Referrals Elba Johns M.D. (PCP) Patient Instructions My [facility] Additional Instructions Increase Bumex to twice a day for the next three days Follow up with Dr Johns's office You have been examined and treated today on an emergency basis only. This is not a substitute for, or an effort to provide, complete comprehensive medical care. It is impossible to recognize and treat all injuries or illnesses in a single emergency department visit. It is therefore important that you follow up closely with Dr Johns. Call as soon as possible for an appointment. Thank you for your time and consideration. I look forward to speaking with you again soon. Please don't hesitate to call us if you have any questions. Problem Qualifiers Primary Impression: CHF exacerbation Heart failure type: unspecified Qualified Codes: I50.9 - Heart failure, unspecified
[2017-09-08 00:06] VITALS: TEMP 36.5; O2SAT 93
[2017-09-08] MEDS ORDERED: ALBUT/IPRATROP 3MG/0.5MG NEB 3 ML VIAL INH ONE (00:15)
[2017-09-08 00:16] VITALS: Ht 182.9 cm; Wt 104.4 kg
[2017-09-08 00:21] LABS: BASO % 0.3 %; BASO ABS # 0.02 K/uL (0-0.2); EOS % 5.6 %; EOS ABS # 0.32 K/uL (0-0.5); HEMATOCRIT 33.8 % (42-52); HEMOGLOBIN 10.6 g/dL (14.0-18.0); IG# 0.01 K/uL (0.00-0.02); LYMPH % 10.5 %; MEAN CELL VOLUME 93.9 fL (80-100); MEAN CORPUSCULAR HEMOGLOBIN 29.4 pg (25-34); MEAN CORPUSCULAR HGB CONC 31.4 g/dl (32-36); MEAN PLATELET VOLUME 9.9 fL (7.4-10.4); MONO % 5.4 %; MONO ABS # 0.31 K/uL (0.11-0.59); NEUT ABS # 4.46 K/uL (1.4-6.5); PLATELET COUNT 160 K/uL (130-400); RED CELL DISTRIBUTION WIDTH CV 16.1 % (11.5-14.5); RED CELL DISTRIBUTION WIDTH SD 55.7 fL (36.4-46.3); WHITE BLOOD COUNT 5.72 K/uL (4.8-10.8)
[2017-09-08 00:24] VITALS: PULSE 66; O2SAT 94
[2017-09-08] MEDS ORDERED: BUMETANIDE SOLN 1 MG/4 ML VIAL IV STA (00:30)
[2017-09-08 00:39] LABS: INFLUENZA B ANTIGEN Neg for Influ B (NEG)
[2017-09-08 00:44] LABS: ALBUMIN 2.4 gm/dl (3.4-5.0); CALCIUM 8.6 mg/dl (8.5-10.1); CREATININE 1.57 mg/dl (0.60-1.40); POTASSIUM 5.2 mmol/L (3.5-5.1); TOTAL PROTEIN 6.3 gm/dl (6.4-8.2)
[2017-09-08] MEDS ORDERED: NVLG SC (01:26)
[2017-09-08] MEDS ORDERED: INSDGI SC (01:26)
[2017-09-08 02:20] VITALS: BP 139/76; PULSE 76; O2SAT 94
--- NOTE | 2017-09-08 08:52 | DIAGNOSTIC IMAGING REPORT ---
CHEST ONE VIEW PORTABLE CLINICAL HISTORY: 76 years-old Male presenting with Pt c/O SOB. TECHNIQUE: Portable upright AP view of the chest was obtained. COMPARISON: 07/05/2017. FINDINGS: Left subclavian implanted cardiac defibrillator with leads to the right atrium, coronary sinus, and right ventricular apex. Atherosclerosis of aortic arch. Cardiac silhouette moderately enlarged, unchanged. Pulmonary vascular prominence. Bibasilar opacities. Small bilateral pleural effusions greater on the right. No large pneumothorax. Degenerative changes of the thoracic spine. Upper abdomen normal. IMPRESSION: 1. Cardiomegaly with volume overload/congestive change. No misty pulmonary edema. 2. Right greater than left small pleural effusions with bibasilar consolidation/atelectasis. Electronically signed by: Aleksander Benites M.D. 09/08/2017 8:50 AM Dictated Date/Time: 09/08/2017 7:46 AM
== END 2017-09-08 02:20 | disposition home or self-care (01) ==
LOC: EDBD 23:53 → C.EDB 23:54
DX: I50.9 Heart failure, unspecified (principal); R06.00 Dyspnea, unspecified; E11.40 Type 2 diabetes mellitus with diabetic neuropathy, unspecified; Z79.899 Other long term (current) drug therapy; Z88.2 Allergy status to sulfonamides

== ENCOUNTER → 2017-09-09 | Outpatient (CLI) | payer OTHER, MEDICARE ==
[~2017-09-09] MED LIST changes: +INSDGI SC; +NVLG SC
[2017-09-09 17:28] LABS: BASO % 0.2 %; BASO ABS # 0.01 K/uL (0-0.2); EOS % 4.1 %; EOS ABS # 0.22 K/uL (0-0.5); HEMATOCRIT 34.1 % (42-52); HEMOGLOBIN 10.6 g/dL (14.0-18.0); LYMPH % 10.7 %; LYMPH ABS # 0.57 K/uL (1.2-3.4); MEAN CELL VOLUME 93.9 fL (80-100); MEAN CORPUSCULAR HEMOGLOBIN 29.2 pg (25-34); MEAN CORPUSCULAR HGB CONC 31.1 g/dl (32-36); MEAN PLATELET VOLUME 10.2 fL (7.4-10.4); MONO % 7.1 %; MONO ABS # 0.38 K/uL (0.11-0.59); NEUT % 77.9 %; NEUT ABS # 4.14 K/uL (1.4-6.5); PLATELET COUNT 160 K/uL (130-400); RED CELL DISTRIBUTION WIDTH CV 16.3 % (11.5-14.5); RED CELL DISTRIBUTION WIDTH SD 56.3 fL (36.4-46.3); WHITE BLOOD COUNT 5.32 K/uL (4.8-10.8)
[2017-09-09 17:55] LABS: ALBUMIN 2.6 gm/dl (3.4-5.0); ALKALINE PHOSPHATASE 84 U/L (45-117); ALT/SGPT 18 U/L (12-78); AST/SGOT 15 U/L (15-37); BLOOD UREA NITROGEN 39 mg/dl (7-18); CALCIUM 9.1 mg/dl (8.5-10.1); CARBON DIOXIDE 30 mmol/L (21-32); CREATININE 1.59 mg/dl (0.60-1.40); GLUCOSE 119 mg/dl (70-99); PHOSPHORUS 3.1 mg/dl (2.5-4.9); POTASSIUM 4.9 mmol/L (3.5-5.1); SODIUM 142 mmol/L (136-145); TOTAL PROTEIN 6.6 gm/dl (6.4-8.2)
== END | disposition home or self-care (01) ==
LOC: C.LABPVFM 15:27
PROVIDERS: ATTEND Internal Medicine Hematology & Oncology
DX: I12.9 Hypertensive chronic kidney disease with stage 1 through stage 4 chronic kidney disease, or unspecified chronic kidney disease (principal); E55.9 Vitamin D deficiency, unspecified; N25.81 Secondary hyperparathyroidism of renal origin; N18.3 Chronic kidney disease, stage 3 (moderate); R60.9 Edema, unspecified; D64.9 Anemia, unspecified

== ENCOUNTER → 2017-11-14 | Outpatient (CLI) | payer OTHER, MEDICARE ==
[~2017-11-14] MED LIST changes: +BMX1 PO; -BUME1TAB PO; +DXY100 PO; -LEVO-17 PO; +LPT40 PO; +MCRK20 PO; +SACU1TAB PO; -SIMV20TA2 PO
[2017-11-14 16:31] LABS: HEMATOCRIT 29.6 % (42-52); HEMOGLOBIN 9.5 g/dL (14.0-18.0); MEAN CELL VOLUME 91.6 fL (80-100); MEAN CORPUSCULAR HEMOGLOBIN 29.4 pg (25-34); MEAN CORPUSCULAR HGB CONC 32.1 g/dl (32-36); MEAN PLATELET VOLUME 9.8 fL (7.4-10.4); PLATELET COUNT 125 K/uL (130-400); RED CELL DISTRIBUTION WIDTH CV 16.1 % (11.5-14.5); RED CELL DISTRIBUTION WIDTH SD 54.1 fL (36.4-46.3)
[2017-11-14 16:50] LABS: BLOOD UREA NITROGEN 116 mg/dl (7-18); CALCIUM 9.5 mg/dl (8.5-10.1); CARBON DIOXIDE 34 mmol/L (21-32); GLUCOSE 121 mg/dl (70-99); PHOSPHORUS 4.9 mg/dl (2.5-4.9); POTASSIUM 4.1 mmol/L (3.5-5.1); SODIUM 139 mmol/L (136-145)
== END | disposition home or self-care (01) ==
LOC: C.LAB1850 15:58
PROVIDERS: ATTEND Physician Assistant
DX: I50.22 Chronic systolic (congestive) heart failure (principal); I42.9 Cardiomyopathy, unspecified; I12.9 Hypertensive chronic kidney disease with stage 1 through stage 4 chronic kidney disease, or unspecified chronic kidney disease; E55.9 Vitamin D deficiency, unspecified; N18.3 Chronic kidney disease, stage 3 (moderate); R60.9 Edema, unspecified; D64.9 Anemia, unspecified; R18.8 Other ascites

== ENCOUNTER → 2017-11-20 | Outpatient (CLI) | payer OTHER, MEDICARE ==
[2017-11-20 17:43] LABS: BLOOD UREA NITROGEN 129 mg/dl (7-18); CALCIUM 9.3 mg/dl (8.5-10.1); CARBON DIOXIDE 35 mmol/L (21-32); CREATININE 2.72 mg/dl (0.60-1.40); GLUCOSE 163 mg/dl (70-99); POTASSIUM 3.6 mmol/L (3.5-5.1); SODIUM 137 mmol/L (136-145)
== END | disposition home or self-care (01) ==
LOC: C.LABPVFM 14:57
PROVIDERS: ATTEND Physician Assistant
DX: I42.9 Cardiomyopathy, unspecified (principal); I50.22 Chronic systolic (congestive) heart failure

== ENCOUNTER → 2017-12-09 | Outpatient (CLI) | payer OTHER, MEDICARE ==
[~2017-12-09] MED LIST changes: +SIMV20TA2 PO
[2017-12-09 12:08] LABS: HEMATOCRIT 27.4 % (42-52); HEMOGLOBIN 8.8 g/dL (14.0-18.0)
[2017-12-09 12:22] LABS: HEMOGLOBIN A1C 6.9 % (4.5-5.6)
[2017-12-09 12:39] LABS: BLOOD UREA NITROGEN 146 mg/dl (7-18); CALCIUM 8.7 mg/dl (8.5-10.1); CARBON DIOXIDE 31 mmol/L (21-32); CREATININE 4.17 mg/dl (0.60-1.40); GLUCOSE 79 mg/dl (70-99); PHOSPHORUS 6.1 mg/dl (2.5-4.9); POTASSIUM 4.1 mmol/L (3.5-5.1); SODIUM 138 mmol/L (136-145)
== END | disposition home or self-care (01) ==
LOC: C.LAB1850 11:29
PROVIDERS: ATTEND Internal Medicine Nephrology
DX: E55.9 Vitamin D deficiency, unspecified (principal); N18.3 Chronic kidney disease, stage 3 (moderate); D64.9 Anemia, unspecified; R60.9 Edema, unspecified; E86.0 Dehydration; N17.9 Acute kidney failure, unspecified; E11.29 Type 2 diabetes mellitus with other diabetic kidney complication